=== PATIENT | female | born 1940 | race Native Hawaiian/Other Pacific Islander ===

== ENCOUNTER 2016-11-07 09:36 | Inpatient (IN) | payer MEDICARE, MEDICAID ==
--- NOTE | 2016-11-07 09:54 | C.PDOC ---
History Of Present Illness 76 yr old female brought in via BLS and accompanied by family, presents to the ER stating patient has been worsening AMS and generalized weakness for the past 2 days. Family reports patient has had decrease appetite an di sno longer walking, usually she is able to walk with the help of a walker. Family states the patient was discharged 1 month ago from [facility] for back and leg pain and currently is on pain meds. Also reports of new onset of right facial swelling since morning. Family denies fever. ROS is limited from patient due to clinical conditions. LIMITED DUE TO CLIN COND FX PER FAMILY, POOR HISTORIAN WORSENING AMS, GEN WEAKNESS X 2 DAYS. NO FEVER. DEC APPETITE, NO LONGER WALKING. USUALLY AMBUL W WALKER. FAMILY STATES PT DC 1 MO AGO FROM [facility] FOR BACK AND LEG PAIN. STATES CURRENTLY ONLY ON PAIN MEDS. DENIES CURRENT HTN MED USE. FAMILY STATES NEW ONSET R FACIAL SWELL SINCE THIS MORNING. EXAM MOD DIST MILD TOX HEENT R LOWER SUBMAND/PAROTID AREA SWELL W LOCAL TEND. NO FOCAL FLUCTUANCE; NO SUBMENTAL SWELL. +ANGIOEDEMA UNDERNEATH TONGUE, NORMAL FISSURES TOP OF TONGUE. DIFFUSE POOR DENTITION. MM DRY. NECK SUPPLE NO STRIDOR. UNABLE TO OBSERVE TRACHEA CTA B/L NO W/R/R TACHYPNEA CV RRR SINUS TACH ABD NEG NO EDEMA EXT ATRAUM NEURO SEE [facility]. SKIN POOR TURGOR Time Seen by Provider: 11/07/16 09:44 Chief Complaint (Nursing): Weakness/Neurological Deficit History Per: Family History/Exam Limitations: Clinical Condition Onset/Duration Of Symptoms: Days (2 days worsening AMS and weakness), Sudden Onset (Right facial swelling ) Past Medical History Reviewed: Historical Data, Nursing Documentation, Vital Signs Vital Signs: Last Vital Signs Temp 99.2 F 11/07/16 10:03 Pulse 81 11/07/16 12:38 Resp 20 11/07/16 12:38 BP 211/89 H 11/07/16 12:38 Pulse Ox 100 11/07/16 12:38 - Medical History PMH: Arthritis (OSTEOARTHRITIS), HTN Surgical History: - [facility] COLONOSCOPY (04/17/14) Family History: States: No Known Family Hx - Social History Hx Tobacco Use: No Hx Alcohol Use: No Hx Substance Use: No - Immunization History Hx Tetanus Toxoid Vaccination: No Hx Influenza Vaccination: Yes Hx Pneumococcal Vaccination: Yes Review Of Systems Review Of Systems: ROS cannot be obtained secondary to pt's inabilty to answer questions. Constitutional: Positive for: Weakness (Generalized ). Negative for: Fever Physical Exam - Physical Exam Appears: Toxic (Mild), In Acute Distress (Moderate ) Skin: Warm, Dry, No Rash Head: Normacephalic, Other (Right lower submandibular/parotid area, swelling with local tenderness. No focal fluctuance. No submental swelling. ) Oral Mucosa: Dry Tongue: Swelling (Angioedema underneath tongue. ), Other (Normal fissures top of tongue. ) Teeth: Other (Diffuse poor dentition. ) Neck: Supple Cardiovascular: Rhythm Regular, Other (Sinus tach) Respiratory: Normal Breath Sounds, No Rales, No Rhonchi, No Wheezing Gastrointestinal/Abdominal: Normal Exam, Soft, No Tenderness, No Guarding, No Rebound Extremity: No Tenderness, No Swelling Neurological/Psych: Other (See NIH. ) ED Course And Treatment - Laboratory Results Result Diagrams: 11/07/16 10:06 11/07/16 10:06 ECG: Interpreted By Ar ECG Rhythm: Sinus Tachycardia Rate From EC (BPM) O2 Sat by Pulse Oximetry: 96 (RA ) Pulse Ox Interpretation: Normal - Radiology CXR: Interpreted by Me, Viewed By Ar CXR Interpretation: Yes: No Acute Disease - CT Scan/US CT - Neck Other Rad Studies (CT/US): Read By Radiologist, Radiology Report Reviewed CT/US Interpretation: EXAM: CT Neck With Intravenous Contrast. CLINICAL HISTORY: 76 years old, female; Signs and symptoms; Mass, lump, or swelling in neck; Additional info: Swelling. r lower face, raised tongue RO ? abscess. TECHNIQUE: Axial computed tomography images of the neck with intravenous contrast. This CT exam was. performed using one or more of the following dose reduction techniques: automated exposure. control, adjustment of the mA and/or kV according to patient size, and/or use of iterative. reconstruction technique. CONTRAST: 100 mL of visipaque 320 administered intravenously. COMPARISON: No relevant prior studies available. FINDINGS: Nasopharynx: Unremarkable. Oropharynx: Unremarkable. No significant tonsillar enlargement. No peritonsillar abscess. Hypopharynx: Unremarkable. Larynx: Unremarkable. Normal epiglottis. Trachea: Unremarkable. Retropharyngeal space: Unremarkable. Submandibular/parotid glands: There is asymmetric swelling and induration involving the right. parotid gland consistent with underlying inflammation. Thyroid: Unremarkable. No enlarged or calcified nodules. Bones/ joints: No acute fracture. Vasculature: There are calcified atherosclerotic changes of the aorta. There are calcified. atherosclerotic changes of the cervical carotid arteries. Lymph nodes: Unremarkable. No lymphadenopathy. Sinuses: There are bilateral maxillary sinus air-fluid levels. Orbits: There is evidence of prior eye surgery. Lung apices: Unremarkable as visualized. IMPRESSION: 1. There is asymmetric swelling and induration involving the right parotid gland consistent with. underlying inflammation. There is no fluid or air collection to suggest an abscess. 2. There are bilateral maxillary sinus air-fluid levels. Soft tissues: Unremarkable. CT - Head w/o Contrast Other Rad Studies (CT/US): Read By Radiologist, Radiology Report Reviewed CT/US Interpretation: EXAM: CT Head Without Intravenous Contrast. CLINICAL HISTORY: 76 years old, female; Signs and symptoms; Altered mental status/ memory loss; Confusion or. disorientation; Additional info: AMS. TECHNIQUE: Axial computed tomography images of the head/brain without intravenous contrast. This CT exam. was performed using one or more of the following dose reduction techniques: automated exposure. control, adjustment of the mA and/or kV according to patient size, and/or use of iterative. reconstruction technique. COMPARISON: No relevant prior studies available. FINDINGS: Brain : 6.5 x 4.3 cm hyperattenuation left frontal mass with peripheral calcifications There is mass. effect upon the left lateral ventricle and effacement of the left-sided cerebral sulci 6 mm of midline. shift is seen from [id number] consistent with subfalcine herniation Bilateral basal ganglia calcification. No hemorrhage. Ventricles: Mass effect upon the left lateral ventricle. Bones/joints: Unremarkable. No acute fracture. Soft tissues : Unremarkable. Vasculature: The distal vertebral arteries visualized and cavernous portions of the carotid arteries. show atherosclerotic disease. Sinuses: There is aerosolized mucous with the maxillary sinus bilaterally consistent with an acute. component. Mastoid air cells: Unremarkable as visualized. No mastoid effusion. IMPRESSION: 1. 6.5 x 4.3 cm hyperattenuation left frontal mass with peripheral calcifications. 2. There is mass effect upon the left lateral ventricle and effacement of the left-sided cerebral sulci. 3. 6 mm of midline shift is seen from [id number] consistent with subfalcine herniation. 4. There is aerosolized mucous with the maxillary sinus bilaterally consistent with an acute. component. CT - Head w/ Contrast Other Rad Studies (CT/US): Read By Radiologist, Radiology Report Reviewed CT/US Interpretation: EXAM: CT Head With Intravenous Contrast. CLINICAL HISTORY: 76 years old, female; Condition or disease; Brain tumor; Neoplasm of brain, not specified; Additional. info: Brain mass. TECHNIQUE: Axial computed tomography images of the head/brain with intravenous contrast. This CT exam was. performed using one or more of the following dose reduction techniques: automated exposure. control, adjustment of the mA and/or kV according to patient size, and/or use of iterative. reconstruction technique. CONTRAST: 100 mL of visipaque 320 administered intravenously. COMPARISON: CT - HEAD W/O CONTRAST 11/07/2016 10:38:54 AM. FINDINGS: Brain: 6.5 x 4.3 cm hyperattenuation left frontal mass with peripheral calcifications There is mass. effect upon the left lateral ventricle and effacement of the left-sided cerebral sulci 6 mm of midline. shift is seen from [id number] consistent with subfalcine herniation Bilateral basal ganglia calcification. No hemorrhage. Slight enhancement of the left frontal mass No edema. Ventricles: Mass effect upon the left lateral ventricle. Bones/joints: Unremarkable. No acute fracture. Soft tissues: Asymmetric enlargement of the right parotid gland. Vasculature: The distal vertebral arteries visualized and cavernous portions of the carotid arteries. show atherosclerotic disease. Sinuses: There is aerosolized mucous with the maxillary sinus bilaterally consistent with an acute. component. Mastoid air cells: Unremarkable as visualized. No mastoid effusion. IMPRESSION: 1. 6.5 x 4.3 cm hyperattenuation left frontal mass with peripheral calcifications and slight. enhancement. 2. There is mass effect upon the left lateral ventricle and effacement of the left-sided cerebral sulci. 3. 6 mm of midline shift is seen from [id number] consistent with subfalcine herniation. 4. No additional intracranial mass lesions Progress - Re-Evaluation Re-evaluation Note: 11/07/16 11:[address] D/W DR WHITT: +50% AIRWAY NARROWING BASE OF TONGUE. NO OTHER VISIBLE AIRWAY COMPROMISE VSS ON NRB. 11/07/16 11:39 D/W DR GARRETT AWARE OF ER FINDINGS REQUESTS REPEAT ABG, WILL EVAL IN ER 11/07/16 11:44 D/W DR Naomi DONIS C/F PMD WILL ADMIT 11/07/16 12:38 SP ICU EVAL, ACCEPTED. - Data Reviewed Data Reviewed: Lab, Diagnostic imaging, EKG, Old records - Critical Care Citical Care: Excluding Proc Time Critical Care Time: 120 minutes - Continuity of Care Discussed patient case with:: Patient, Family-HIPPA compliant Discussed pt. case with bridal sales consultant/specialty: Pulmonary/Crit. Care Medical Decision Making Medical Decision Making: PLAN: * CT - Head, Neck * CT - Head w/ Contrast * CXR * EKG * ABG * Troponin * CBC * CMP * Urinalysis * Trandate IV * Vancomycin IV * Sodium Chloride IV Disposition Counseled Patient/Family Regarding: Studies Performed, Diagnosis - Disposition Disposition: HOSPITALIZED Disposition Time: 12:39 Condition: SERIOUS Forms: [facility] (Azeri) - POA Present On Arrival: None - Clinical Impression Clinical Impression: Parotiditis, Altered mental status, Respiratory distress Decision To Admit - Pt Status Changed To: Hospital Disposition Of: Inpatient - Admit Certification Admit to Inpatient:: After my assessment, the patient will require hospitalization for at least two midnights. This is because of the severity of symptoms shown, intensity of services needed, and/or the medical risk in this patient being treated as an outpatient. - InPatient: Physician Admission Certification:: see note - . Bed Request Type: ICU Admitting Physician: Gab Donis Patient Diagnosis: Parotiditis, Altered mental status, Respiratory distress
[2016-11-07] MEDS ORDERED: Sodium Chloride 0.9% 500 ML IV ONE (10:04)
[2016-11-07] MEDS ORDERED: Iodixanol 320 MG/ML 100 ML BOTTLE IV ONE (10:09)
[2016-11-07 10:12] LABS: BASO # 0.1 K/uL (0.0-0.2); BASO % 0.4 % (0.0-2.0); HEMATOCRIT 37.6 % (34.0-47.0); LYMPH # 1.3 K/uL (1.0-4.3); LYMPH % 6.6 % (20.0-40.0); MEAN CORPUSCULAR HEMOGLOBIN 18.1 pg (27.0-31.0); MEAN CORPUSCULAR HGB CONC 29.5 g/dL (33.0-37.0); MEAN PLATELET VOLUME 9.1 fL (7.2-11.7); MONO # 0.7 K/uL (0.0-0.8); MONO % 3.5 % (0.0-10.0); PLATELET COUNT 415 K/uL (130-400); RED CELL DISTRIBUTION WIDTH 21.8 % (11.5-14.5)
[2016-11-07 10:15] LABS: CHLORIDE 103 mmol/L (98-107)
[2016-11-07 10:16] LABS: POTASSIUM 4.5 mmol/L (3.6-5.2); SODIUM 145 mmol/L (132-148)
[2016-11-07 10:18] LABS: ALB/GLOB RATIO 0.9 (1.0-2.1); ALKALINE PHOSPHATASE 125 U/L (38-126); AST/SGOT 25 U/L (14-36); BILIRUBIN,TOTAL 0.9 mg/dL (0.2-1.3); BLOOD UREA NITROGEN 24 mg/dL (7-17); CARBON DIOXIDE 23 mmol/L (22-30); GFR AFRICAN-AMERICAN > 60; RBC URINE 1 /hpf (0-3); TOTAL PROTEIN 6.8 g/dL (6.3-8.3); URINE BILIRUBIN 1+ (NEGATIVE); URINE BLOOD 1+ (NEGATIVE); URINE COLOR Amber (YELLOW); URINE GLUCOSE (UA) NORMAL (Normal); URINE KETONE 2+ mg/dL (NEGATIVE); URINE LEUKOCYTE ESTERASE NEG Leu/uL (Negative); URINE PROTEIN 2+ mg/dL (NEGATIVE); WBC URINE 2 /hpf (0-5)
[2016-11-07 10:19] LABS: ALT/SGPT 31 U/L (9-52); CALCIUM 10.5 mg/dl (8.6-10.4); GLUCOSE,RANDOM 140 mg/dL (65-105)
[2016-11-07 10:20] LABS: INR 1.3
[2016-11-07 10:23] LABS: MEAN CELL VOLUME 61.4 fL (81.0-99.0); WHITE BLOOD COUNT 19.8 K/uL (4.8-10.8)
[2016-11-07 10:24] LABS: ABG ALLEN TEST POS; DRAW SITE LRA
--- NOTE | 2016-11-07 10:43 | RAD ---
PROCEDURE: CHEST RADIOGRAPH, 1 VIEW HISTORY: Altered mental status COMPARISON: None available. FINDINGS: LUNGS: Diffuse increased interstitial lung markings. Biapical pleural thickening with upper lobe granulomatous changes. Right hilar prominence. Patchy increased markings at the left lung base with question trace left pleural effusion. PLEURA: As above. CARDIOVASCULAR: Calcification at the aortic knob. Tortuous aorta. OSSEOUS STRUCTURES: Degenerative changes in the spine and shoulders. VISUALIZED UPPER ABDOMEN: Normal. OTHER FINDINGS: None. IMPRESSION: Diffuse increased interstitial lung markings. Biapical pleural thickening with upper lobe granulomatous changes. Right hilar prominence. Patchy increased markings at the left lung base with question trace left pleural effusion.
[2016-11-07 11:00] LABS: NEUTROPHIL 93 % (50-75); TOTAL CELLS COUNTED 100
[2016-11-07] MEDS ORDERED: Labetalol 25mg/5ml Syringe ONE (11:05)
[2016-11-07] MEDS ORDERED: Labetalol 5 mg/ml Inj 20ML IV STA (11:08)
[2016-11-07] MEDS ORDERED: Vancomycin 1 GM 0 GM/0 ML BAG IVPB ONE (11:21)
[2016-11-07] MEDS ORDERED: Vancomycin 1 gm/NS 200 ml 1 GM/200 ML BAG IVPB STA (11:23)
[2016-11-07 12:08] LABS: ABG ALLEN TEST POS; DRAW SITE RRA
[2016-11-07 13:20] LABS: VENOUS BLOOD GAS BASE EXCESS -5.5 mmol/L (0.0-2.0); VENOUS BLOOD GAS PCO2 42 mmHg (40-60)
--- NOTE | 2016-11-07 15:35 | CP.PCM.CON ---
History of Present Illness - History of Present Illness History of Present Illness: 73yo PMHx HTN, arthritis, constipation, UTI's, internal hemorrhoids, right and left ovarian cystic masses (Ovarian CA workup not complete). p/w parotitis with airway compromise. Review of Systems - Review of Systems Systems not reviewed;Unavailable: Altered Mental Status, Language Barrier Past Patient History - Infectious Disease Hx of Infectious Diseases: None - Tetanus Immunizations Tetanus Immunization: Unknown - Past Medical History & Family History Past Medical History?: Yes - Past Social History Smoking Status: Never Smoked - CARDIAC Hx Hypertension: Yes - PULMONARY Hx Respiratory Disorders: No - NEUROLOGICAL Hx Neurological Disorder: No - HEENT Hx HEENT Problems: No - RENAL Hx Chronic Kidney Disease: No - ENDOCRINE/METABOLIC Hx Endocrine Disorders: No - HEMATOLOGICAL/ONCOLOGICAL Hx Blood Disorders: No - INTEGUMENTARY Hx Dermatological Problems: No - MUSCULOSKELETAL/RHEUMATOLOGICAL Hx Arthritis: Yes (OSTEOARTHRITIS) - GASTROINTESTINAL Hx Gastrointestinal Disorders: No - GENITOURINARY/GYNECOLOGICAL Hx Genitourinary Disorders: No - PSYCHIATRIC Hx Substance Use: No - SURGICAL HISTORY Hx Surgeries: Yes Hx Cataract Extraction: Yes Hx Tubal Ligation: Yes - ANESTHESIA Hx Anesthesia: Yes Hx Anesthesia Reactions: No Hx Malignant Hyperthermia: No Meds Allergies/Adverse Reactions: Allergies Allergy/AdvReac Type Severity Reaction Status Date / Time No Known Allergies Allergy Verified 04/17/14 17:38 Physical Exam - Head Exam Head Exam: ATRAUMATIC, NORMAL INSPECTION, NORMOCEPHALIC - ENT Exam ENT Exam: Mucous Membranes Dry Additional comments: horrible dentition - Respiratory Exam Respiratory Exam: Clear to Auscultation Bilateral, NORMAL BREATHING PATTERN - Cardiovascular Exam Cardiovascular Exam: REGULAR RHYTHM - GI/Abdominal Exam GI & Abdominal Exam: Normal Bowel Sounds, Soft. absent: Tenderness - Neurological Exam Neurological exam: Alert, CN II-XII Intact - Psychiatric Exam Psychiatric exam: Normal Mood Results - Vital Signs Recent Vital Signs: Last Vital Signs Temp 98.9 F 11/07/16 12:53 Pulse 78 11/07/16 14:50 Resp 19 11/07/16 14:50 BP 189/90 H 11/07/16 14:50 Pulse Ox 100 11/07/16 14:50 - Labs Result Diagrams: 11/07/16 10:06 11/07/16 10:06 Labs: Laboratory Results - last 24 hr 11/07/16 13:15 pO2 27 L VBG pH 7.30 L VBG pCO2 42 VBG HCO3 19.1 VBG Total CO2 22.0 VBG O2 Sat (Calc) 51.1 VBG Base Excess -5.5 L VBG Potassium 3.6 Sodium 145.0 Chloride 117.0 H Glucose 115 H Lactate 1.6 Venous Blood Potassium 3.6 Assessment & Plan (1) Parotiditis Assessment and Plan: 73yo PMHx HTN, arthritis, constipation, UTI's, internal hemorrhoids, right and left ovarian cystic masses (Ovarian CA workup not complete). p/w parotitis with airway compromise. Neuro: Alert, follows commands, language barrier. Pulm: Breathing with audible airway collapse sound secondary to swelling from parotiditis, not labored, oxygenating well with nasal cannula oxygen. We will monitor for any degradation and airway patency. CV: Hemodynamically stable. Hypertensive IV enalapril 2.5 mg IV every 6 hours. Hem: Leukocytosis from sepsis Renal: No acute issues, urine output within normal limits, will monitor. Endo: No acute issues GI: Nothing by mouth, tube feeding, Jevity. ID: Sepsis secondary to parotitis, continue nafcillin and clindamycin. DVT proph - Lovenox GI proph - not currently indicated hyman for strict I/O's during acute illness Code status - full code Critical Care Time spent 35 minutes Multi-disciplinary rounds were performed with house staff, nursing, speech therapy, respiratory therapy, pharmacy and nutrition with integrated input from the primary team/attending and other consulting services. The documented time is cumulative and includes review of patient data/exams/labs/chart review and examination of the patient on rounds and throughout the day; time is exclusive of any procedures or teaching time. Status: Acute
[2016-11-07] MEDS ORDERED: Enalaprilat 2.5 MG/2 ML IV SCH (16:00)
[2016-11-07] MEDS ORDERED: Enoxaparin 40 mg Syringe SC SCH (16:00)
[2016-11-07] MEDS: Sodium Chloride 0.9% 1,000 ML IV SCH (16:10)
--- NOTE | 2016-11-07 16:43 | CT ---
PROCEDURE: CT HEAD WITHOUT CONTRAST. HISTORY: Altered mental status COMPARISON: None available. TECHNIQUE: Axial computed tomography images were obtained through the head/brain without intravenous contrast. Radiation dose: Total exam DLP = 1001 mGy-cm. This CT exam was performed using one or more of the following dose reduction techniques: Automated exposure control, adjustment of the mA and/or kV according to patient size, and/or use of iterative reconstruction technique. FINDINGS: HEMORRHAGE: See below BRAIN: 6.5 x 4.3 centimeter hyperattenuated left frontal mass with peripheral calcification. Mass effect upon the left lateral ventricle with effacement of the left-sided cerebral sulci. 6 millimeter of midline shift is seen from [id number] consistent with subfalcine herniation. Bilateral basal ganglia calcification. VENTRICLES: Mass effect upon the left lateral ventricle as described above. CALVARIUM: Unremarkable. PARANASAL SINUSES: Mucosal secretions within the bilateral maxillary sinuses. MASTOID AIR CELLS: Unremarkable as visualized. No inflammatory changes. OTHER FINDINGS: Atherosclerotic disease within the visualized intracranial arteries. Left orbital prosthesis and or ring light area of increased attenuation. IMPRESSION: 6.5 x 4.3 centimeter hyperattenuated left frontal mass with peripheral calcifications. Correlation with MRI may be helpful for further characterization of this lesion. Mass effect upon the left lateral ventricle with effacement of the left-sided cerebral sulci. 6 millimeter midline shift is seen from [id number] consistent with subfalcine herniation. Mucosal secretions within the maxillary sinuses bilaterally consistent with an acute component. These findings were preliminarily reported at 11:15 a.m. on 11/07/[address] Mihir Mendieta from [email or web address].
--- NOTE | 2016-11-07 16:55 | CT ---
CT soft tissue neck History: Right facial soft tissue swelling. Comparison: None available. Technique: Axial computed tomographic images of the neck were performed with intravenous contrast. Subsequently, sagittal and coronal reformatted images were obtained. This CT exam was performed using one or more of the following dose reduction techniques: Automated exposure control, adjustment of the mA and/or kV according to patient size, and/or use of iterative reconstruction technique. Findings: Asymmetric swelling and induration involving the right parotid gland consistent with underlying inflammation. Calcification with atherosclerotic changes of the visualized aorta and cervical carotid arteries. Bilateral maxillary sinuses demonstrate air-fluid levels. Evidence of prior left eye surgery. Left parotid gland appears preserved. Left submandibular gland appears preserved. Mild asymmetric prominence of the left tonsillar/peritonsillar region with some narrowing of the airway at that level and extending inferiorly as demonstrated on series 2, image 26. Mild thickening at the level of the tongue base. Few shotty cervical chain lymph nodes noted. Mucosal thickening and opacification of the bilateral maxillary sinuses. Partial opacification of the bilateral mastoid air cells; left greater than right. Prominent degenerative changes in the spine. Prominent posterior disc osteophyte complex at the C5-6 level. Heterogeneity of the thyroid. Calcification and plaque within the aorta. Impression: 1. Asymmetric swelling and induration involving the right parotid gland consist with underlying inflammation and/or infection. 2. Bilateral maxillary sinus air-fluid levels. 3. Mild asymmetric prominence of the left tonsillar/peritonsillar region with some narrowing of the airway at that level and extending inferiorly as demonstrated on series 2, image 26. 4. Mild thickening at the level of the tongue base. 5. Few shotty cervical chain lymph nodes noted. 6. Partial opacification of the bilateral mastoid air cells; left greater than right. Additional findings as above. These findings were preliminarily reported at 11:09 a.m. on 11/07/[address] Alireza Zapata from [employer].
--- NOTE | 2016-11-07 17:08 | CT ---
PROCEDURE: CT HEAD WITH CONTRAST HISTORY: BRAIN MASS COMPARISON: Noncontrast CT head dated 11/08/2015 TECHNIQUE: Axial computed tomography images were obtained through the head/brain with intravenous contrast. Contrast dose: 100 cc of Visipaque 320 intravenous contrast. Radiation dose: Total exam DLP = 981 mGy-cm. This CT exam was performed using one or more of the following dose reduction techniques: Automated exposure control, adjustment of the mA and/or kV according to patient size, and/or use of iterative reconstruction technique. FINDINGS: HEMORRHAGE: See below. BRAIN: 6.5 x 4.3 centimeter hyperattenuated left frontal mass with peripheral calcifications. Mass-effect upon the left lateral ventricle and effacement of the left-sided cerebral sulci. 6 millimeter midline shift is seen from [id number] consistent with subfalcine herniation. Bilateral basal ganglia calcification. Slight enhancement of the left frontal mass. VENTRICLES: Mass effect upon the left lateral ventricle. CALVARIUM: Unremarkable. PARANASAL SINUSES: Mucosal thickening and opacification of the bilateral maxillary sinuses. MASTOID AIR CELLS: Mucosal opacification of the bilateral mastoid air cells. OTHER FINDINGS: Asymmetric enlargement of the right parotid gland. Intracranial atherosclerotic arterial calcifications. IMPRESSION: 6.5 x 4.3 centimeter hyperattenuated left frontal mass with peripheral calcification and slight enhancement. Correlation with contrast-enhanced MRI would be helpful for further evaluation and characterization of this lesion. Mass-effect upon the left lateral ventricle and effacement of the left-sided cerebral sulci. 6 millimeter of midline shift seen from [id number] consistent with subfalcine herniation. Additional findings as above. These findings were preliminarily reported at 12:19 p.m. on 11/07/[address] Mihir Mendieta from [facility].
--- NOTE | 2016-11-07 22:14 | CP.PCM.HP ---
History of Present Illness - History of Present Illness History of Present Illness: 76 yo F with PMH of HTN, Arthritis and recent d/c last month from [facility] for back and leg pain BIBA to ED with 2 day h/o worsening mental status a/w generalized weakness. Pt family at bedside and ROS and hx as per pt family due to pt clinical condition. As per pt family, pt noted to have Right sided facial swelling and tenderness. Denies fever, chills, chest pain, sob, n/v/d, abdominal pain. Pt reported to have decrease in appetite with decreased mobility to not walking status. At baseline pt is able to ambulate with walker. Denies use of current antihypertensive. Left sided brain mass noted on Head CT Present on Admission - Present on Admission Any Indicators Present on Admission: No Review of Systems - Review of Systems Systems not reviewed;Unavailable: Altered Mental Status Past Patient History - Infectious Disease Hx of Infectious Diseases: None - Tetanus Immunizations Tetanus Immunization: Unknown - Past Medical History & Family History Past Medical History?: No - Past Social History Smoking Status: Unknown If Ever Smoked - CARDIAC Hx Hypertension: Yes - PULMONARY Hx Respiratory Disorders: No - NEUROLOGICAL Hx Neurological Disorder: No - HEENT Hx HEENT Problems: No - RENAL Hx Chronic Kidney Disease: No - ENDOCRINE/METABOLIC Hx Endocrine Disorders: No - HEMATOLOGICAL/ONCOLOGICAL Hx Blood Disorders: No - INTEGUMENTARY Hx Dermatological Problems: No - MUSCULOSKELETAL/RHEUMATOLOGICAL Hx Falls: No (Unknown) - GASTROINTESTINAL Hx Gastrointestinal Disorders: No - GENITOURINARY/GYNECOLOGICAL Hx Genitourinary Disorders: No - PSYCHIATRIC Hx Substance Use: No - SURGICAL HISTORY Hx Surgeries: Yes Hx Cataract Extraction: Yes Hx Tubal Ligation: Yes - ANESTHESIA Hx Anesthesia: Yes Hx Anesthesia Reactions: No Hx Malignant Hyperthermia: No Meds Allergies/Adverse Reactions: Allergies Allergy/AdvReac Type Severity Reaction Status Date / Time No Known Allergies Allergy Verified 04/17/14 17:38 Physical Exam - Constitutional Appears: Well - Head Exam Head Exam: ATRAUMATIC, NORMAL INSPECTION, NORMOCEPHALIC - Eye Exam Eye Exam: EOMI, Normal appearance, PERRL - ENT Exam ENT Exam: Mucous Membranes Moist, Normal Exam - Neck Exam Neck exam: Positive for: Normal Inspection - Respiratory Exam Respiratory Exam: Decreased Breath Sounds - Cardiovascular Exam Cardiovascular Exam: REGULAR RHYTHM - GI/Abdominal Exam GI & Abdominal Exam: Diminished Bowel Sounds - Rectal Exam Rectal Exam: Deferred - Neurological Exam Neurological exam: Altered Results - Vital Signs Recent Vital Signs: Last Vital Signs Temp 97.4 F L 11/07/16 20:00 Pulse 76 11/07/16 22:13 Resp 18 11/07/16 22:13 BP 204/82 H 11/07/16 22:13 Pulse Ox 100 11/07/16 22:13 - Labs Result Diagrams: 11/15/16 11:17 11/15/16 11:17 Labs: Laboratory Results - last 24 hr 11/07/16 13:15 pO2 27 L VBG pH 7.30 L VBG pCO2 42 VBG HCO3 19.1 VBG Total CO2 22.0 VBG O2 Sat (Calc) 51.1 VBG Base Excess -5.5 L VBG Potassium 3.6 Sodium 145.0 Chloride 117.0 H Glucose 115 H Lactate 1.6 Venous Blood Potassium 3.6 Assessment & Plan (1) Altered mental status Status: Acute (2) Parotiditis Status: Acute (3) Respiratory distress Status: Acute (4) Abdominal pain Status: Acute (5) Anemia Status: Acute (6) Constipation Status: Acute (7) Hyperglycemia Status: Acute (8) Hypokalemia Status: Acute (9) Ovarian cystic mass Status: Acute (10) Prophylactic measure Status: Acute (11) UTI (urinary tract infection) Status: Acute - Assessment and Plan (Free Text) Plan: neurosurg heme/onc id pulm f/u labs CT head reviewed CT neck iv abx maría meds as ordered BCx UCx
[2016-11-07] MEDS ORDERED: Enalaprilat 2.5 MG/2 ML IV STA (22:18)
[2016-11-08] MEDS: Enalaprilat 2.5 MG/2 ML IV SCH ×3 (06:13→17:34)
[2016-11-08] MEDS: Sodium Chloride 0.9% 1,000 ML IV SCH (06:18)
[2016-11-08 06:23] LABS: BASO # 0.1 K/uL (0.0-0.2); BASO % 0.5 % (0.0-2.0); EOS % 0.1 % (0.0-4.0); HEMATOCRIT 31.8 % (34.0-47.0); LYMPH # 0.9 K/uL (1.0-4.3); LYMPH % 4.6 % (20.0-40.0); MEAN CELL VOLUME 61.5 fL (81.0-99.0); MEAN CORPUSCULAR HEMOGLOBIN 18.1 pg (27.0-31.0); MEAN CORPUSCULAR HGB CONC 29.4 g/dL (33.0-37.0); MEAN PLATELET VOLUME 9.4 fL (7.2-11.7); MONO % 4.7 % (0.0-10.0); PLATELET COUNT 371 K/uL (130-400); RED CELL DISTRIBUTION WIDTH 21.5 % (11.5-14.5); WHITE BLOOD COUNT 20.4 K/uL (4.8-10.8)
[2016-11-08 07:11] LABS: ALB/GLOB RATIO 0.8 (1.0-2.1); ALKALINE PHOSPHATASE 103 U/L (38-126); ALT/SGPT 28 U/L (9-52); AST/SGOT 37 U/L (14-36); BILIRUBIN,TOTAL 0.7 mg/dL (0.2-1.3); BLOOD UREA NITROGEN 19 mg/dL (7-17); CALCIUM 8.9 mg/dl (8.6-10.4); CARBON DIOXIDE 23 mmol/L (22-30); CHLORIDE 110 mmol/L (98-107); GFR AFRICAN-AMERICAN > 60; GLUCOSE,RANDOM 160 mg/dL (65-105); MAGNESIUM 1.9 mg/dL (1.6-2.3); PHOSPHOROUS 2.1 mg/dL (2.5-4.5); POTASSIUM 3.3 mmol/L (3.6-5.2); SODIUM 145 mmol/L (132-148); TOTAL PROTEIN 5.6 g/dL (6.3-8.3)
[2016-11-08 08:56] LABS: NEUTROPHIL 90 % (50-75); TOTAL CELLS COUNTED 100
[2016-11-08 09:01] LABS: LARGE PLATELETS PRESENT
[2016-11-08] MEDS ORDERED: Iohexol 240 (50 ml) PO ONE (11:15)
[2016-11-08] MEDS ORDERED: Potassium Chloride 20 mEq/15 ml LIQ UD PO ONE (11:18)
[2016-11-08] MEDS ORDERED: Potassium & Sodium Phosphate PO ONE (11:19)
--- NOTE | 2016-11-08 11:27 | CP.CCUPN ---
<Sheree Cespedes - Last Filed: 11/08/16 13:31> CCU Subjective - Physician Review Subjective (Free Text): Patient was seen and examined at bedside in the morning. Patient was in no acute distress. Patient followed commands but did not respond to review of systems. 11/08/16 11:27 CCU Objective - Vital Signs / Intake & Output Vital Signs (Last 4 hours): Vital Signs Temp Pulse Resp BP Pulse Ox 11/08/16 09:00 79 15 100 11/08/16 08:56 78 16 154/67 H 100 11/08/16 08:00 98 F 78 14 100 11/08/16 07:56 78 17 146/72 100 Intake and Output (Last 8hrs): Intake & Output 11/07/16 11/08/16 11/08/16 22:59 06:59 14:59 Intake Total 340 910 285 Output Total 140 325 225 Balance 200 585 60 Intake: Intake, IV Amount 300 750 225 Left Forearm 300 700 225 left arm 50 Tube Feeding 40 160 60 Output: Urine 140 325 225 Urethral (Snow) 140 325 225 Other: # Bowel Movements 0 0 - Physical Exam Head: Positive for: Atraumatic, Tenderness (right parotiditis), Swelling (right parotiditis). Negative for: Normocephalic Extroacular Muscles: Positive for: EOMI Mouth: Positive for: Moist Mucous Membranes Neck: Positive for: Other (tenderness and swelling with palpation of right neck extending from angle of mandible to clavicle) Respiratory/Chest: Positive for: Clear to Auscultation. Negative for: Wheezes, Rales Cardiovascular: Positive for: Normal S1, S2 Abdomen: Positive for: Normal Bowel Sounds. Negative for: Tenderness, Distention Upper Extremity: Positive for: Normal Inspection, Other (right sided weakness) Lower Extremity: Positive for: Edema, Swelling. Negative for: Normal Inspection , NORMAL PULSES (diminished) Skin: Positive for: Warm, Dry, Normal Color Psychiatric: Positive for: Alert - Medications Active Medications: Active Medications Generic Name Dose Route Start Last Admin Trade Name Freq PRN Reason Stop Dose Admin Enalaprilat 1.25 mg 11/08/16 06:00 11/08/16 06:13 Vasotec IV 1.25 mg Q6 SUJEY Administration Famotidine 20 mg 11/08/16 10:30 11/08/16 11:00 Pepcid IVP 20 mg DAILY SUJEY Administration Hydralazine HCl 10 mg 11/08/16 00:45 11/08/16 06:11 Apresoline IVP Not Given Q6H SUJEY Clindamycin Phosphate 600 mg/ 54 mls @ 100 mls/hr 11/07/16 17:00 11/08/16 10: 08 Sodium Chloride IVPB 100 mls/hr Q6H SUJEY Administration Ceftriaxone Sodium 1 gm/ 100 mls @ 100 mls/hr 11/08/16 10:00 11/08/16 10:06 Sodium Chloride IVPB 100 mls/hr DAILY SUJEY Administration - Patient Studies Lab Studies: Lab Studies 11/08/16 11/08/16 11/07/16 Range/Units 06:16 06:15 13:15 WBC 20.4 H (4.8-10.8) K/uL RBC 5.17 (3.80-5.20) Mil/uL Hgb 9.4 L (11.0-16.0) g/dL Hct 31.8 L (34.0-47.0) % MCV 61.5 L (81.0-99.0) fL MCH 18.1 L (27.0-31.0) pg MCHC 29.4 L (33.0-37.0) g/dL RDW 21.5 H (11.5-14.5) % Plt Count 371 (130-400) K/uL MPV 9.4 (7.2-11.7) fL Neut % (Auto) 90.1 H (50.0-75.0) % Lymph % (Auto) 4.6 L (20.0-40.0) % [place] % (Auto) 4.7 (0.0-10.0) % Eos % (Auto) 0.1 (0.0-4.0) % Baso % (Auto) 0.5 (0.0-2.0) % Neut # 18.4 H (1.8-7.0) K/uL Lymph # 0.9 L (1.0-4.3) K/uL [place] # 1.0 H (0.0-0.8) K/uL Eos # 0.0 (0.0-0.7) K/uL Baso # 0.1 (0.0-0.2) K/uL Neutrophils % (Manual) 90 H (50-75) % Lymphocytes % (Manual) 6 L (20-40) % Monocytes % (Manual) 4 (0-10) % Toxic Granulation Present Platelet Estimate Normal (NORMAL) Large Platelets Present Hypochromasia (manual) Slight Poikilocytosis (manual Slight Anisocytosis (manual) Slight Microcytosis (manual) Slight Macrocytosis (manual) Slight Ovalocytes Slight [place] Cells Slight pO2 27 L (30-55) mm/Hg VBG pH 7.30 L (7.32-7.43) VBG pCO2 42 (40-60) mmHg VBG HCO3 19.1 mmol/L VBG Total CO2 22.0 (22-28) mmol/L VBG O2 Sat (Calc) 51.1 (40-65) % VBG Base Excess -5.5 L (0.0-2.0) mmol/L VBG Potassium 3.6 (3.6-5.2) mmol/L Sodium 145 145.0 (132-148) mmol/l Chloride 110 H 117.0 H (98-107) mmol/L Glucose 115 H (65-105) mg/dl Lactate 1.6 (0.7-2.1) mmol/L Potassium 3.3 L (3.6-5.2) mmol/L Carbon Dioxide 23 (22-30) mmol/L Anion Gap 15 (10-20) BUN 19 H (7-17) mg/dL Creatinine 0.6 L (0.7-1.2) MG/DL Est GFR ( Amer) > 60 Est GFR (Non-Af Amer) > 60 Random Glucose 160 H (65-105) mg/dL Calcium 8.9 (8.6-10.4) mg/dl Phosphorus 2.1 L (2.5-4.5) mg/dL Magnesium 1.9 (1.6-2.3) mg/dL Total Bilirubin 0.7 (0.2-1.3) mg/dL AST 37 H D (14-36) U/L ALT 28 (9-52) U/L Alkaline Phosphatase 103 (38-126) U/L Total Protein 5.6 L (6.3-8.3) g/dL Albumin 2.5 L D (3.5-5.0) g/dL Globulin 3.0 (2.2-3.9) gm/dL Albumin/Globulin Ratio 0.8 L (1.0-2.1) Venous Blood Potassium 3.6 (3.6-5.2) mmol/L Laboratory Results - last 24 hr 11/07/16 11/08/16 11/08/16 13:15 06:15 06:16 WBC 20.4 H RBC 5.17 Hgb 9.4 L Hct 31.8 L MCV 61.5 L MCH 18.1 L MCHC 29.4 L RDW 21.5 H Plt Count 371 MPV 9.4 Neut % (Auto) 90.1 H Lymph % (Auto) 4.6 L [place] % (Auto) 4.7 Eos % (Auto) 0.1 Baso % (Auto) 0.5 Neut # 18.4 H Lymph # 0.9 L [place] # 1.0 H Eos # 0.0 Baso # 0.1 Neutrophils % (Manual) 90 H Lymphocytes % (Manual) 6 L Monocytes % (Manual) 4 Toxic Granulation Present Platelet Estimate Normal Large Platelets Present Hypochromasia (manual) Slight Poikilocytosis (manual Slight Anisocytosis (manual) Slight Microcytosis (manual) Slight Macrocytosis (manual) Slight Ovalocytes Slight [place] Cells Slight pO2 27 L VBG pH 7.30 L VBG pCO2 42 VBG HCO3 19.1 VBG Total CO2 22.0 VBG O2 Sat (Calc) 51.1 VBG Base Excess -5.5 L VBG Potassium 3.6 Sodium 145.0 145 Chloride 117.0 H 110 H Glucose 115 H Lactate 1.6 Potassium 3.3 L Carbon Dioxide 23 Anion Gap 15 BUN 19 H Creatinine 0.6 L Est GFR ( Amer) > 60 Est GFR (Non-Af Amer) > 60 Random Glucose 160 H Calcium 8.9 Phosphorus 2.1 L Magnesium 1.9 Total Bilirubin 0.7 AST 37 H D ALT 28 Alkaline Phosphatase 103 Total Protein 5.6 L Albumin 2.5 L D Globulin 3.0 Albumin/Globulin Ratio 0.8 L Venous Blood Potassium 3.6 Fingerstick Blood Sugar Results: 161 Review of Systems - Review of Systems Systems not reviewed;Unavailable: Altered Mental Status Assessment/Plan - Assessment and Plan (Free Text) Assessment: 73yo PMHx HTN, arthritis, constipation, UTI's, internal hemorrhoids, right and left ovarian cystic masses (Ovarian CA workup not complete). p/w parotitis with airway compromise. Neuro: - Alert, follows commands, language barrier. - Left Brain Mass - Neurosurgery consulted: Dr. Gautam, help appreciated - Head CT: 6.5 X 4.3 cm hyperattenuated left frontal mass with peripheral calcification and slight enhancement. mass effect upon left lateral ventricle and effacement of left sided cerebral sulci. 6mm midline shift from left to right consistent with subfalcine herniation. - Neurosurgery consulted: Dr. Gautam, help appreciated - Brain MRI w/contrast: f/u - Brain MRI w/o contrast: f/u Pulm: Breathing with audible airway collapse sound secondary to swelling from parotiditis, not labored, oxygenating well with nasal cannula oxygen. We will monitor for any degradation and airway patency. - CXR: diffuse increased interstitial lung marking, biapical pleural thickening with upper lobe granulomatous changes; right hilar prominence. patchy increased markings at left lung base with possible trace pleural effusion. HEENT: - Parotiditis - ENT consulted: Dr. Simeon, help appreciated - Soft tissue Neck CT: asymmetric swelling, induration involving right parotid gland, underlying inflammation and/or infection; mild asymmetric prominence of left tonsillar/peritonsillar region with narrowing of airway at that level and extending inferiorly; mild thickening at level of tongue base; shotty cervical chain lymph nodes. - Swallow eval: f/u CV: Hemodynamically stable. - Hypertensive - IV fluids discontinued - Enalapril 2.5 mg IV Q6 hours. Hem: Leukocytosis from sepsis Renal: No acute issues, urine output within normal limits, will monitor. - Hypokalemia and Hypophosphatemia: KCl and Neutraphos given Endo: No acute issues GI: Nothing by mouth, - Tube feeding: Jevity. ID: Sepsis secondary to parotiditis, - Continue Nafcillin and Clindamycin. - ID consulted: Dr. Rubi, help appreciated. Prophylaxis: - DVT- Lovenox - GI- not currently indicated - Snow for strict I/O's during acute illness - Swallow Eval: f/u Code status - full code <Mingo Posey - Last Filed: 11/08/16 18:58> CCU Objective - Vital Signs / Intake & Output Vital Signs (Last 4 hours): Vital Signs Temp Pulse Resp BP Pulse Ox 11/08/16 18:00 83 15 100 11/08/16 17:57 81 15 122/60 100 11/08/16 17:34 149/85 11/08/16 17:00 99 H 20 100 11/08/16 16:56 92 H 14 149/85 11/08/16 16:00 98.1 F 86 15 100 11/08/16 15:56 86 13 137/65 100 11/08/16 15:00 86 14 100 Intake and Output (Last 8hrs): Intake & Output 11/08/16 11/08/16 11/08/16 06:59 14:59 22:59 Intake Total 910 1365 270 Output Total 325 440 225 Balance 585 925 45 Intake: Intake, IV Amount 750 375 150 Left Forearm 700 325 150 Right Antecubital 0 left arm 50 50 Tube Feeding 160 190 120 Other 800 Output: Urine 325 440 225 Urethral (Snow) 325 440 225 Other: # Bowel Movements 0 0 - Medications Active Medications: Active Medications Generic Name Dose Route Start Last Admin Trade Name Freq PRN Reason Stop Dose Admin Enalaprilat 1.25 mg 11/08/16 06:00 11/08/16 17:34 Vasotec IV 1.25 mg Q6 SUJEY Administration Famotidine 20 mg 11/08/16 10:30 11/08/16 11:00 Pepcid IVP 20 mg DAILY SUJEY Administration Hydralazine HCl 10 mg 11/08/16 00:45 11/08/16 18:29 Apresoline IVP Not Given Q6H SUJEY Clindamycin Phosphate 600 mg/ 54 mls @ 100 mls/hr 11/07/16 17:00 11/08/16 16: 52 Sodium Chloride IVPB 100 mls/hr Q6H SUJEY Administration Ceftriaxone Sodium 2 gm/ 100 mls @ 100 mls/hr 11/08/16 18:00 11/08/16 17:32 Sodium Chloride IVPB 100 mls/hr BID SUJEY Administration - Patient Studies Lab Studies: Microbiology Studies 11/07/16 17:00 Blood Culture - Preliminary Blood NO GROWTH AFTER 24 HOURS 11/07/16 17:00 Blood Culture - Preliminary Blood NO GROWTH AFTER 24 HOURS Lab Studies 11/08/16 11/08/16 Range/Units 06:16 06:15 WBC 20.4 H (4.8-10.8) K/uL RBC 5.17 (3.80-5.20) Mil/uL Hgb 9.4 L (11.0-16.0) g/dL Hct 31.8 L (34.0-47.0) % MCV 61.5 L (81.0-99.0) fL MCH 18.1 L (27.0-31.0) pg MCHC 29.4 L (33.0-37.0) g/dL RDW 21.5 H (11.5-14.5) % Plt Count 371 (130-400) K/uL MPV 9.4 (7.2-11.7) fL Neut % (Auto) 90.1 H (50.0-75.0) % Lymph % (Auto) 4.6 L (20.0-40.0) % [place] % (Auto) 4.7 (0.0-10.0) % Eos % (Auto) 0.1 (0.0-4.0) % Baso % (Auto) 0.5 (0.0-2.0) % Neut # 18.4 H (1.8-7.0) K/uL Lymph # 0.9 L (1.0-4.3) K/uL [place] # 1.0 H (0.0-0.8) K/uL Eos # 0.0 (0.0-0.7) K/uL Baso # 0.1 (0.0-0.2) K/uL Neutrophils % (Manual) 90 H (50-75) % Lymphocytes % (Manual) 6 L (20-40) % Monocytes % (Manual) 4 (0-10) % Toxic Granulation Present Platelet Estimate Normal (NORMAL) Large Platelets Present Hypochromasia (manual) Slight Poikilocytosis (manual Slight Anisocytosis (manual) Slight Microcytosis (manual) Slight Macrocytosis (manual) Slight Ovalocytes Slight [place] Cells Slight Sodium 145 (132-148) mmol/L Potassium 3.3 L (3.6-5.2) mmol/L Chloride 110 H (98-107) mmol/L Carbon Dioxide 23 (22-30) mmol/L Anion Gap 15 (10-20) BUN 19 H (7-17) mg/dL Creatinine 0.6 L (0.7-1.2) MG/DL Est GFR ( Amer) > 60 Est GFR (Non-Af Amer) > 60 Random Glucose 160 H (65-105) mg/dL Calcium 8.9 (8.6-10.4) mg/dl Phosphorus 2.1 L (2.5-4.5) mg/dL Magnesium 1.9 (1.6-2.3) mg/dL Total Bilirubin 0.7 (0.2-1.3) mg/dL AST 37 H D (14-36) U/L ALT 28 (9-52) U/L Alkaline Phosphatase 103 (38-126) U/L Total Protein 5.6 L (6.3-8.3) g/dL Albumin 2.5 L D (3.5-5.0) g/dL Globulin 3.0 (2.2-3.9) gm/dL Albumin/Globulin Ratio 0.8 L (1.0-2.1) Laboratory Results - last 24 hr 11/08/16 11/08/16 06:15 06:16 WBC 20.4 H RBC 5.17 Hgb 9.4 L Hct 31.8 L MCV 61.5 L MCH 18.1 L MCHC 29.4 L RDW 21.5 H Plt Count 371 MPV 9.4 Neut % (Auto) 90.1 H Lymph % (Auto) 4.6 L [place] % (Auto) 4.7 Eos % (Auto) 0.1 Baso % (Auto) 0.5 Neut # 18.4 H Lymph # 0.9 L [place] # 1.0 H Eos # 0.0 Baso # 0.1 Neutrophils % (Manual) 90 H Lymphocytes % (Manual) 6 L Monocytes % (Manual) 4 Toxic Granulation Present Platelet Estimate Normal Large Platelets Present Hypochromasia (manual) Slight Poikilocytosis (manual Slight Anisocytosis (manual) Slight Microcytosis (manual) Slight Macrocytosis (manual) Slight Ovalocytes Slight [place] Cells Slight Sodium 145 Potassium 3.3 L Chloride 110 H Carbon Dioxide 23 Anion Gap 15 BUN 19 H Creatinine 0.6 L Est GFR ( Amer) > 60 Est GFR (Non-Af Amer) > 60 Random Glucose 160 H Calcium 8.9 Phosphorus 2.1 L Magnesium 1.9 Total Bilirubin 0.7 AST 37 H D ALT 28 Alkaline Phosphatase 103 Total Protein 5.6 L Albumin 2.5 L D Globulin 3.0 Albumin/Globulin Ratio 0.8 L Attending/Attestation - Attestation I have personally seen and examined this patient.: Yes I have fully participated in the care of the patient.: Yes I have reviewed all pertinent clinical information: Yes Notes (Text): Patient is currently seen by me. In the morning I spoke with the neurosurgeon, also infectious disease and ENT evaluation. Patient is currently having inflammation and infection of the parotid gland. Patient airway is maintained well. No evidence of any obstruction at this time. MRI of the brain showing evidence of possible meningioma. Currently on IV antibiotic Follow up with the neurosurgery. And will follow the patient
--- NOTE | 2016-11-08 12:21 | CP.PCM.CON ---
History of Present Illness - History of Present Illness History of Present Illness: Original Note: IV antibiotics ordered after examining pt and reviewing records and discussing with groundman History of Present Illness - History of Present Illness History of Present Illness: 73yo PMHx HTN, arthritis, constipation, UTI's, internal hemorrhoids, right and left ovarian cystic masses (Ovarian CA workup not complete). p/w parotitis with airway compromise. Neuro: right sided weakness, Patient found to have large left sided mass in brain seen on head CT. 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 Single lesion, neurosurgical consult and hem/onc consult. Past Patient History - Infectious Disease Hx of Infectious Diseases: None - Tetanus Immunizations Tetanus Immunization: Unknown - Past Medical History & Family History Past Medical History?: No - Past Social History Smoking Status: Unknown If Ever Smoked - CARDIAC Hx Hypertension: Yes - PULMONARY Hx Respiratory Disorders: No - NEUROLOGICAL Hx Neurological Disorder: No - HEENT Hx HEENT Problems: No - RENAL Hx Chronic Kidney Disease: No - ENDOCRINE/METABOLIC Hx Endocrine Disorders: No - HEMATOLOGICAL/ONCOLOGICAL Hx Blood Disorders: No - INTEGUMENTARY Hx Dermatological Problems: No - MUSCULOSKELETAL/RHEUMATOLOGICAL Hx Falls: No (Unknown) - GASTROINTESTINAL Hx Gastrointestinal Disorders: No - GENITOURINARY/GYNECOLOGICAL Hx Genitourinary Disorders: No - PSYCHIATRIC Hx Substance Use: No - SURGICAL HISTORY Hx Surgeries: Yes Hx Cataract Extraction: Yes Hx Tubal Ligation: Yes - ANESTHESIA Hx Anesthesia: Yes Hx Anesthesia Reactions: No Hx Malignant Hyperthermia: No Meds Allergies/Adverse Reactions: Allergies Allergy/AdvReac Type Severity Reaction Status Date / Time No Known Allergies Allergy Verified 04/17/14 17:38 - Medications Medications: Current Medications Enalaprilat (Vasotec) 1.25 mg IV Q6 [facility] Last Admin: 11/08/16 06:13 Dose: 1.25 mg Famotidine (Pepcid) 20 mg IVP DAILY [facility] Last Admin: 11/08/16 11:00 Dose: 20 mg Hydralazine HCl (Apresoline) 10 mg IVP Q6H [facility] Last Admin: 11/08/16 06:11 Dose: Not Given Clindamycin Phosphate 600 mg/ (Sodium Chloride) 54 mls @ 100 mls/hr IVPB Q6H [facility] Last Admin: 11/08/16 10:08 Dose: 100 mls/hr Ceftriaxone Sodium 2 gm/ (Sodium Chloride) 100 mls @ 100 mls/hr IVPB BID SUJEY Results - Vital Signs Recent Vital Signs: Last Vital Signs Temp 98 F 11/08/16 08:00 Pulse 79 11/08/16 09:00 Resp 15 11/08/16 09:00 BP 154/67 H 11/08/16 08:56 Pulse Ox 100 11/08/16 09:00 - Labs Result Diagrams: 11/08/16 06:16 11/08/16 06:15 Labs: Laboratory Results - last 24 hr 11/07/16 11/08/16 11/08/16 13:15 06:15 06:16 WBC 20.4 H RBC 5.17 Hgb 9.4 L Hct 31.8 L MCV 61.5 L MCH 18.1 L MCHC 29.4 L RDW 21.5 H Plt Count 371 MPV 9.4 Neut % (Auto) 90.1 H Lymph % (Auto) 4.6 L [place] % (Auto) 4.7 Eos % (Auto) 0.1 Baso % (Auto) 0.5 Neut # 18.4 H Lymph # 0.9 L [place] # 1.0 H Eos # 0.0 Baso # 0.1 Neutrophils % (Manual) 90 H Lymphocytes % (Manual) 6 L Monocytes % (Manual) 4 Toxic Granulation Present Platelet Estimate Normal Large Platelets Present Hypochromasia (manual) Slight Poikilocytosis (manual Slight Anisocytosis (manual) Slight Microcytosis (manual) Slight Macrocytosis (manual) Slight Ovalocytes Slight [place] Cells Slight pO2 27 L VBG pH 7.30 L VBG pCO2 42 VBG HCO3 19.1 VBG Total CO2 22.0 VBG O2 Sat (Calc) 51.1 VBG Base Excess -5.5 L VBG Potassium 3.6 Sodium 145.0 145 Chloride 117.0 H 110 H Glucose 115 H Lactate 1.6 Potassium 3.3 L Carbon Dioxide 23 Anion Gap 15 BUN 19 H Creatinine 0.6 L Est GFR ( Amer) > 60 Est GFR (Non-Af Amer) > 60 Random Glucose 160 H Calcium 8.9 Phosphorus 2.1 L Magnesium 1.9 Total Bilirubin 0.7 AST 37 H D ALT 28 Alkaline Phosphatase 103 Total Protein 5.6 L Albumin 2.5 L D Globulin 3.0 Albumin/Globulin Ratio 0.8 L Venous Blood Potassium 3.6
[2016-11-08] MEDS ORDERED: Iodixanol 320 MG/ML 100 ML BOTTLE IV ONE (14:07)
--- NOTE | 2016-11-08 14:16 | CARD ---
APPROVED REPORT EKG Measurement Heart [id number] <Conclusion> Sinus tachycardia Moderate voltage criteria for LVH, may be normal variant Borderline ECG
--- NOTE | 2016-11-08 15:52 | MRI ---
PROCEDURE: MRI BRAIN WITH AND WITHOUT CONTRAST HISTORY: r/o abscess COMPARISON: Head CT without contrast 11/07/2016 with subsequent contrast head CT 11/07/2016 as well. TECHNIQUE: Multiplanar, multisequence MR images of the brain were obtained with and without intravenous contrast enhancement. FINDINGS: HEMORRHAGE: Included discussion below. DWI: No evidence of an acute or early subacute infarction. BRAIN PARENCHYMA: The previous previously demonstrated lesion at the left frontal region measures 4.5 x 6.5 x 5.0 cm (transverse by anteroposterior by superoinferior dimensions). It appears to have trace CSF associated with this periphery in numerous locations and the places displaces the right frontal lobe medially at the midline by approximately 9.5 mm. It has T2 characteristics which follow grant matter and contains a few calcifications best seen in the prior CT examination is noted above, and is well-circumscribed. Trace hemosiderin is difficult exclude the medial portion of this lesion though these punctate gradient echo hypo intense foci may bridge represent additional calcification. Local says sulci are effaced and moderate diffuse enhancement is appreciate following gadolinium administration. Further, there is moderate restricted diffusion associated with this lesion. Findings may receive represent an atypical meningioma, with malignant cell type not excluded. Abscesses frequently show restricted diffusion more so than most masses though this is not favored due to the shape and homogeneous appearance of this lesion throughout multiple sequences as well as on gadolinium enhancement. Less likely would be an intra-axial lesion such is a oligodendroglioma or astrocytoma. Consider tissue diagnosis. Diffuse cerebral atrophy and limited chronic microangiopathy are identified otherwise. A small, chronic lacune is seen the left cerebellum inferiorly. ENHANCEMENT: Please see discussion above. VENTRICLES: There is partial effacement of left lateral ventricle. No definite hydrocephalus. CRANIUM: Unremarkable. ORBITS: Grossly unremarkable. PARANASAL SINUSES/MASTOIDS: Bilateral mastoiditis identified. VASCULAR SYSTEM: Skull base flow voids intact. OTHER FINDINGS: Prominence of the right parotid gland is appreciated (superficial portion) with local edema which may reflect parotitis. Further clinical correlation is advised. A focal lesion not clearly identified however the entire parotid glands not captured in this exam. IMPRESSION: 1. 6.5 cm enhancing lesion is identified at the left frontal region which is felt to be extra-axial and potentially software support representative of an atypical meningioma, potentially malignant. Differential diagnosis is as discussed above. 2. Age-related degenerate change are identified as discussed above. A chronic lacune is at the inferior left cerebellum. 3. Incidental note is made of of the superficial portion right parotid gland identified with local edema which may reflect parotitis. Further clinical correlation is advised. Consider follow-up neck CT without contrast for full characterization.
--- NOTE | 2016-11-08 16:04 | CT ---
PROCEDURE: CT Chest, Abdomen and Pelvis with intravenous contrast HISTORY: intra cranial tumor, h/o ovrian tumor COMPARISON: CT abdomen/pelvis 04/17/2014 TECHNIQUE: IV dose administered: 100 mL Visipaque 320 Radiation dose: Total exam DLP = 1345.42 mGy-cm. This CT exam was performed using one or more of the following dose reduction techniques: Automated exposure control, adjustment of the mA and/or kV according to patient size, and/or use of iterative reconstruction technique. FINDINGS: CT CHEST WITH CONTRAST: LUNGS: 3 mm nodule, subpleural, in the apical segment right upper lobe. No other pulmonary mass is identified. There is curvilinear band -like pleural-based scar in the left lower lobe. MEDIASTINUM: Heterogeneity of the thyroid gland. 3 mm nodule in right lobe of thyroid. Consider correlation with thyroid ultrasound examination. Normal caliber of thoracic aorta and main pulmonary artery. No mediastinal lymphadenopathy. Normal heart size. Mitral annular calcification. . LYMPH NODES: Unremarkable. PLEURA: Minimal posterior pleural thickening at left base. No pleural effusion. No pneumothorax. BONES: No acute fracture. Sclerotic lesion at the anterior inferior corner of the T11 vertebra. Unchanged from 2015. Sclerotic lesion also seen in the T6 vertebra. No prior for comparison. OTHER FINDINGS: None. CT ABDOMEN AND PELVIS: LIVER: Coarse dystrophic type calcification in the right lobe of the liver unchanged from 04/17/2014. No hepatic mass. No biliary dilatation. GALLBLADDER AND BILE DUCTS: Unremarkable. PANCREAS: Unremarkable. No gross lesion or ductal dilatation. SPLEEN: Unremarkable. ADRENALS: Unremarkable. No mass. KIDNEYS AND URETERS: Mild increase in size of low-density mass in mid left kidney, from 2.5 cm in 2015 22.8 cm currently. This measures 11 Hounsfield units and most likely represents a cyst. However, given the interval change in size, correlation with ultrasound examination is suggested. No right renal mass. No calculus or hydronephrosis. VASCULATURE: Unremarkable. No aortic aneurysm. BOWEL: Unremarkable. No obstruction. No gross mural thickening. APPENDIX: Normal appendix. PERITONEUM: Unremarkable. No free fluid. No free air. LYMPH NODES: Unremarkable. No enlarged lymph nodes. BLADDER: Decompressed around a Snow catheter balloon. REPRODUCTIVE: The uterus is significant for a large fluid collection within the fundal region. This may represent an endometrial fluid collection or may represent a necrotic neoplasm. This should be correlated with ultrasound examination. There is a 2.1 cm nodule in the wall of the uterus protruding into this fluid collection. This was not clearly evident on prior examination. There are several coarse calcifications in the anterior wall of the uterus, likely calcified degenerated fibroids. These were evident previously as well. BONES: No acute fracture. Multiple small sclerotic lesions are seen in lumbar vertebrae, unchanged from prior examination. There is grade 1-2 spondylolisthesis at L5-S1 with bilateral spondylolysis. OTHER FINDINGS: Mild nonspecific presacral edema which represents interval change from prior examination. IMPRESSION: Bilateral cystic adnexal masses, the larger of which on the right side has decreased mildly since 04/17/2014. Left-sided cystic adnexal mass is unchanged in size. Recommend correlation with ultrasound. Large amount of fluid within uterus, possibly due to endometrial neoplasm or cervical stenosis or less likely necrotic uterine mass. This represents interval change from previous. 2.1 cm right-sided uterine fibroid protruding into this central fluid collection. Mild enlargement of low-density left renal mass, likely cyst. Recommend correlation with ultrasound examination of the kidneys. Heterogeneous thyroid gland with 3 mm nodule in right lobe. Recommend correlation with ultrasound examination.
--- NOTE | 2016-11-08 16:46 | CON ---
DATE: 11/08/2016 REFERRING PHYSICIAN: Dr. Naomi Pugh. REASON FOR CONSULTATION: Parotitis. HISTORY OF PRESENT ILLNESS: This is a 76-year-old female who was noted to have parotid enlargement on the right. The patient does not speak or communicate well. Therefore, further history cannot be obtained from the patient. PAST MEDICAL HISTORY: As noted in the chart by me. MEDICATIONS: As noted in the chart by me. PHYSICAL EXAMINATION: HEAD: Atraumatic, normocephalic. FACE: Good facial movements bilaterally; however, facial exam is limited secondary to patient not being cooperative. CONSTITUTIONAL: Well nourished. COMMUNICATION: The patient does not communicate appropriately. EXTERNAL NOSE: No masses. No lesions. No erythema. No edema. INTERNAL NOSE: Deviated septum. No masses. No lesions. No erythema. No edema. ORAL CAVITY AND OROPHARYNX: Limited exam secondary to patient not being cooperative. No masses. No lesions. No erythema. No edema. LIPS AND GUMS: Limited exam secondary to the patient not being cooperative. No masses. No lesions. No erythema. No edema. NECK: There is edema of the right parotid gland. There is overlying erythema. LYMPH NODES: No lymphadenopathy of the neck. THYROID: No thyromegaly, no goiter. LABORATORY DATA: CAT scan was reviewed by me reveals parotitis, reading also indicates asymmetrically enlarged mild tonsils; however, tonsils and BOT could not be visualized. ASSESSMENT: 1. Parotitis. 2. Deviated septum. PLAN: Continue IV antibiotics. I will do a flexible laryngoscopy to try to visualize the tonsils and base of tongue. Neftaly Simeon MD MTDAhsan
--- NOTE | 2016-11-08 17:59 | CP.PCM.PN ---
Subjective - Date & Time of Evaluation Date of Evaluation: 11/08/16 Time of Evaluation: 12:20 - Subjective Subjective: clinically same On IV antibiotic Objective - Vital Signs/Intake and Output Vital Signs (last 24 hours): Temp Pulse Resp BP Pulse Ox 98 F 84 16 149/85 100 11/08/16 12:00 11/08/16 13:00 11/08/16 13:00 11/08/16 17:34 11/08/16 13:00 Intake and Output: 11/08/16 11/08/16 06:59 18:59 Intake Total 1250 1365 Output Total 465 440 Balance 785 925 - Medications Medications: Current Medications Enalaprilat (Vasotec) 1.25 mg IV Q6 [facility] Last Admin: 11/08/16 17:34 Dose: 1.25 mg Famotidine (Pepcid) 20 mg IVP DAILY [facility] Last Admin: 11/08/16 11:00 Dose: 20 mg Hydralazine HCl (Apresoline) 10 mg IVP Q6H [facility] Last Admin: 11/08/16 12:22 Dose: 10 mg Clindamycin Phosphate 600 mg/ (Sodium Chloride) 54 mls @ 100 mls/hr IVPB Q6H [facility] Last Admin: 11/08/16 16:52 Dose: 100 mls/hr Ceftriaxone Sodium 2 gm/ (Sodium Chloride) 100 mls @ 100 mls/hr IVPB BID [facility] Last Admin: 11/08/16 17:32 Dose: 100 mls/hr - Labs Labs: 11/08/16 06:16 11/08/16 06:15 PT 14.6 SECONDS (9.7-12.2) H 11/07/16 10:06 INR 1.3 11/07/16 10:06 APTT 29 SECONDS (21-34) 11/07/16 10:06 - Constitutional Appears: Well - Head Exam Head Exam: ATRAUMATIC, NORMAL INSPECTION, NORMOCEPHALIC - Eye Exam Eye Exam: EOMI, Normal appearance, PERRL Pupil Exam: NORMAL ACCOMODATION, PERRL - ENT Exam ENT Exam: Mucous Membranes Moist, Normal Exam - Neck Exam Neck Exam: Full ROM, Normal Inspection. absent: Lymphadenopathy - Respiratory Exam Respiratory Exam: Decreased Breath Sounds - Cardiovascular Exam Cardiovascular Exam: REGULAR RHYTHM, +S1, +S2 - GI/Abdominal Exam GI & Abdominal Exam: Soft, Diminished Bowel Sounds - Rectal Exam Rectal Exam: Deferred - Neurological Exam Neurological Exam: Altered Assessment and Plan (1) Altered mental status Status: Acute (2) Parotiditis Status: Acute (3) Respiratory distress Status: Acute (4) Abdominal pain Status: Acute (5) Anemia Status: Acute (6) Constipation Status: Acute (7) Hyperglycemia Status: Acute (8) Hypokalemia Status: Acute (9) Ovarian cystic mass Status: Acute (10) Prophylactic measure Status: Acute (11) UTI (urinary tract infection) Status: Acute - Assessment and Plan (Free Text) Plan: Continue IV antibiotics Neurosurgery ID Follow-up with intesivist Continue other meds as ordered Follow-up labs Follow-up imaging Follow-up cultures
[2016-11-09] MEDS: Enalaprilat 2.5 MG/2 ML IV SCH ×4 (00:45→17:45)
[2016-11-09 06:36] LABS: BASO # 0.1 K/uL (0.0-0.2); BASO % 0.6 % (0.0-2.0); EOS # 0.2 K/uL (0.0-0.7); EOS % 1.1 % (0.0-4.0); HEMATOCRIT 35.7 % (34.0-47.0); LYMPH # 1.3 K/uL (1.0-4.3); LYMPH % 8.5 % (20.0-40.0); MEAN CELL VOLUME 61.8 fL (81.0-99.0); MEAN CORPUSCULAR HEMOGLOBIN 17.9 pg (27.0-31.0); MONO # 0.8 K/uL (0.0-0.8); MONO % 5.2 % (0.0-10.0); NRBC % 0.1 % (0.0-2.0); PLATELET COUNT 397 K/uL (130-400); RED CELL DISTRIBUTION WIDTH 22.4 % (11.5-14.5); WHITE BLOOD COUNT 15.9 K/uL (4.8-10.8)
[2016-11-09 06:57] LABS: ALB/GLOB RATIO 0.9 (1.0-2.1); ALKALINE PHOSPHATASE 100 U/L (38-126); ALT/SGPT 30 U/L (9-52); AST/SGOT 27 U/L (14-36); BILIRUBIN,TOTAL 0.4 mg/dL (0.2-1.3); BLOOD UREA NITROGEN 19 mg/dL (7-17); CALCIUM 9.3 mg/dl (8.6-10.4); CARBON DIOXIDE 27 mmol/L (22-30); CHLORIDE 109 mmol/L (98-107); GFR AFRICAN-AMERICAN > 60; GLUCOSE,RANDOM 165 mg/dL (65-105); POTASSIUM 3.3 mmol/L (3.6-5.2); SODIUM 148 mmol/L (132-148); TOTAL PROTEIN 5.9 g/dL (6.3-8.3)
[2016-11-09 08:27] LABS: EOSINOPHIL 2 % (0-4); NEUTROPHIL 74 % (50-75); TOTAL CELLS COUNTED 100
[2016-11-09 08:28] LABS: LARGE PLATELETS PRESENT
[2016-11-09] MEDS ORDERED: Potassium Phosphate 15 MMOLE in Sodium Chloride 0.9% 250 ML IVPB ONE (10:00)
--- NOTE | 2016-11-09 11:06 | CP.PCM.PN ---
Subjective - Date & Time of Evaluation Date of Evaluation: 11/09/16 Time of Evaluation: 09:00 - Subjective Subjective: afeb iv rx reordered cultures pending Objective - Vital Signs/Intake and Output Vital Signs (last 24 hours): Temp Pulse Resp BP Pulse Ox 98.8 F 107 H 18 145/91 H 98 11/09/16 08:00 11/09/16 10:01 11/09/16 10:01 11/09/16 10:01 11/09/16 10:01 Intake and Output: 11/09/16 11/09/16 06:59 18:59 Intake Total 460 190 Output Total 385 110 Balance 75 80 - Medications Medications: Current Medications Enalaprilat (Vasotec) 1.25 mg IV Q6 [facility] Last Admin: 11/09/16 06:00 Dose: 1.25 mg Famotidine (Pepcid) 20 mg IVP DAILY [facility] Last Admin: 11/09/16 09:56 Dose: 20 mg Hydralazine HCl (Apresoline) 10 mg IVP Q6H [facility] Last Admin: 11/09/16 06:00 Dose: 10 mg Clindamycin Phosphate 600 mg/ (Sodium Chloride) 54 mls @ 100 mls/hr IVPB Q6H [facility] Last Admin: 11/09/16 10:09 Dose: 100 mls/hr Ceftriaxone Sodium 2 gm/ (Sodium Chloride) 100 mls @ 100 mls/hr IVPB BID [facility] Last Admin: 11/09/16 09:56 Dose: 100 mls/hr Potassium Phosphate 15 mmole/ (Sodium Chloride) 255 mls @ 42.5 mls/hr IVPB ONCE ONE Stop: 11/09/16 15:59 Ketorolac Tromethamine (Toradol) 30 mg IVP Q6 PRN PRN Reason: Pain, Mild (1-3) Last Admin: 11/09/16 10:05 Dose: 30 mg - Labs Labs: 11/09/16 06:24 11/09/16 06:24 PT 14.6 SECONDS (9.7-12.2) H 11/07/16 10:06 INR 1.3 11/07/16 10:06 APTT 29 SECONDS (21-34) 11/07/16 10:06 - Constitutional Appears: Non-toxic, Confused - Head Exam Head Exam: NORMOCEPHALIC - Eye Exam Eye Exam: absent: Scleral icterus - ENT Exam ENT Exam: Mucous Membranes Dry - Neck Exam Neck Exam: absent: Lymphadenopathy - Respiratory Exam Respiratory Exam: Decreased Breath Sounds - Cardiovascular Exam Cardiovascular Exam: REGULAR RHYTHM - GI/Abdominal Exam GI & Abdominal Exam: Distended, Soft Assessment and Plan (1) Parotiditis Status: Acute
--- NOTE | 2016-11-09 13:19 | CP.CCUPN ---
Addendum entered and electronically signed by Sheree Cespedes 11/09/16 16:20 : Neuro: left frontal mass with midline shift, causing brain compression. Original Note: <Sheree Cespedes. - Last Filed: 11/09/16 13:53> CCU Subjective - Physician Review Subjective (Free Text): Patient was seen and examined at bedside in the morning. Patient followed commands but did not respond to review of systems. As per the patient's daughter , the patient has chest pain since 5am and knee pain. 11/09/16 13:16 CCU Objective - Vital Signs / Intake & Output Vital Signs (Last 4 hours): Vital Signs Pulse Resp BP Pulse Ox 11/09/16 13:01 94 H 14 145/67 100 11/09/16 13:00 96 H 22 100 11/09/16 12:18 139/89 11/09/16 12:00 101 H 17 139/89 100 11/09/16 11:11 107 H 11/09/16 10:47 102 H 17 127/71 100 11/09/16 10:01 107 H 18 145/91 H 98 11/09/16 10:00 104 H 18 94 L Intake and Output (Last 8hrs): Intake & Output 11/08/16 11/09/16 11/09/16 22:59 06:59 14:59 Intake Total 440 290 362 Output Total 325 285 140 Balance 115 5 222 Weight 165 lb 5.547 oz Intake: Intake, IV Amount 200 50 192 Left Forearm 200 50 192 Right Antecubital 0 Oral 30 Tube Feeding 210 240 170 Output: Urine 325 285 140 Urethral (Snow) 325 285 140 - Physical Exam Head: Positive for: Atraumatic, Tenderness (right parotiditis), Swelling (right parotiditis). Negative for: Normocephalic Extroacular Muscles: Positive for: EOMI Mouth: Positive for: Moist Mucous Membranes Neck: Positive for: Other (tenderness and swelling with palpation of right neck extending from angle of mandible to clavicle) Respiratory/Chest: Positive for: Clear to Auscultation. Negative for: Wheezes, Rales Cardiovascular: Positive for: Murmurs, Normal S1, S2 Abdomen: Positive for: Normal Bowel Sounds. Negative for: Tenderness, Distention Upper Extremity: Positive for: Normal Inspection, Other (right sided weakness) Lower Extremity: Positive for: Edema, Swelling. Negative for: Normal Inspection , NORMAL PULSES (diminished) Skin: Positive for: Warm, Dry, Normal Color Psychiatric: Positive for: Alert, Lethargic - Medications Active Medications: Active Medications Generic Name Dose Route Start Last Admin Trade Name Freq PRN Reason Stop Dose Admin Enalaprilat 1.25 mg 11/08/16 06:00 11/09/16 12:18 Vasotec IV 1.25 mg Q6 SUJEY Administration Famotidine 20 mg 11/08/16 10:30 11/09/16 09:56 Pepcid IVP 20 mg DAILY SUJEY Administration Hydralazine HCl 10 mg 11/08/16 00:45 11/09/16 12:18 Apresoline IVP Not Given Q6H SUJEY Clindamycin Phosphate 600 mg/ 54 mls @ 100 mls/hr 11/07/16 17:00 11/09/16 10: 09 Sodium Chloride IVPB 100 mls/hr Q6H SUJEY Administration Ceftriaxone Sodium 2 gm/ 100 mls @ 100 mls/hr 11/08/16 18:00 11/09/16 09:56 Sodium Chloride IVPB 100 mls/hr BID SUJEY Administration Potassium Phosphate 15 mmole/ 255 mls @ 42.5 mls/hr 11/09/16 10:00 11/09/16 11:26 Sodium Chloride IVPB 11/09/16 15:59 42.5 mls/hr ONCE ONE Administration Ketorolac Tromethamine 30 mg 11/09/16 09:16 11/09/16 10:05 Toradol IVP 30 mg Q6 PRN Administration Pain, Mild (1-3) - Patient Studies Lab Studies: Microbiology Studies 11/07/16 17:00 Blood Culture - Preliminary Blood NO GROWTH AFTER 24 HOURS 11/07/16 17:00 Blood Culture - Preliminary Blood NO GROWTH AFTER 24 HOURS Lab Studies 11/09/16 11/09/16 Range/Units 06:24 06:24 WBC 15.9 H (4.8-10.8) K/uL RBC 5.77 H (3.80-5.20) Mil/uL Hgb 10.4 L (11.0-16.0) g/dL Hct 35.7 (34.0-47.0) % MCV 61.8 L (81.0-99.0) fL MCH 17.9 L (27.0-31.0) pg MCHC 29.0 L (33.0-37.0) g/dL RDW 22.4 H (11.5-14.5) % Plt Count 397 (130-400) K/uL MPV 9.0 (7.2-11.7) fL Neut % (Auto) 84.6 H (50.0-75.0) % Lymph % (Auto) 8.5 L (20.0-40.0) % Kerr % (Auto) 5.2 (0.0-10.0) % Eos % (Auto) 1.1 (0.0-4.0) % Baso % (Auto) 0.6 (0.0-2.0) % Neut # 13.4 H (1.8-7.0) K/uL Lymph # 1.3 (1.0-4.3) K/uL Kerr # 0.8 (0.0-0.8) K/uL Eos # 0.2 (0.0-0.7) K/uL Baso # 0.1 (0.0-0.2) K/uL Neutrophils % (Manual) 74 (50-75) % Band Neutrophils % 5 H (0-2) % Lymphocytes % (Manual) 13 L (20-40) % Monocytes % (Manual) 6 (0-10) % Eosinophils % (Manual) 2 (0-4) % Platelet Estimate Normal (NORMAL) Large Platelets Present Poikilocytosis (manual Slight Anisocytosis (manual) Moderate Microcytosis (manual) Moderate Target Cells Slight Ovalocytes Moderate Sodium 148 (132-148) mmol/L Potassium 3.3 L (3.6-5.2) mmol/L Chloride 109 H (98-107) mmol/L Carbon Dioxide 27 (22-30) mmol/L Anion Gap 15 (10-20) BUN 19 H (7-17) mg/dL Creatinine 0.7 (0.7-1.2) MG/DL Est GFR ( Amer) > 60 Est GFR (Non-Af Amer) > 60 Random Glucose 165 H (65-105) mg/dL Calcium 9.3 (8.6-10.4) mg/dl Phosphorus 2.0 L (2.5-4.5) mg/dL Magnesium 2.0 (1.6-2.3) mg/dL Total Bilirubin 0.4 (0.2-1.3) mg/dL AST 27 (14-36) U/L ALT 30 (9-52) U/L Alkaline Phosphatase 100 (38-126) U/L Troponin I 0.0290 (0.00-0.120) ng/mL Total Protein 5.9 L (6.3-8.3) g/dL Albumin 2.8 L (3.5-5.0) g/dL Globulin 3.1 (2.2-3.9) gm/dL Albumin/Globulin Ratio 0.9 L (1.0-2.1) Laboratory Results - last 24 hr 11/09/16 11/09/16 06:24 06:24 WBC 15.9 H RBC 5.77 H Hgb 10.4 L Hct 35.7 MCV 61.8 L MCH 17.9 L MCHC 29.0 L RDW 22.4 H Plt Count 397 MPV 9.0 Neut % (Auto) 84.6 H Lymph % (Auto) 8.5 L [place] % (Auto) 5.2 Eos % (Auto) 1.1 Baso % (Auto) 0.6 Neut # 13.4 H Lymph # 1.3 Kerr # 0.8 Eos # 0.2 Baso # 0.1 Neutrophils % (Manual) 74 Band Neutrophils % 5 H Lymphocytes % (Manual) 13 L Monocytes % (Manual) 6 Eosinophils % (Manual) 2 Platelet Estimate Normal Large Platelets Present Poikilocytosis (manual Slight Anisocytosis (manual) Moderate Microcytosis (manual) Moderate Target Cells Slight Ovalocytes Moderate Sodium 148 Potassium 3.3 L Chloride 109 H Carbon Dioxide 27 Anion Gap 15 BUN 19 H Creatinine 0.7 Est GFR ( Amer) > 60 Est GFR (Non-Af Amer) > 60 Random Glucose 165 H Calcium 9.3 Phosphorus 2.0 L Magnesium 2.0 Total Bilirubin 0.4 AST 27 ALT 30 Alkaline Phosphatase 100 Troponin I 0.0290 Total Protein 5.9 L Albumin 2.8 L Globulin 3.1 Albumin/Globulin Ratio 0.9 L EKG/Cardiology Studies: Cardiology / EKG Studies 11/09/16 08:15 EKG [ELECTROCARDIOGRAM] Stat Comment: Mode Of Transportation: Reason For Exam: chest pain Fingerstick Blood Sugar Results: 161 Review of Systems - Review of Systems Systems not reviewed;Unavailable: Other (ROS as per the daughter) - Constitutional Constitutional: absent: Fever - Cardiovascular Cardiovascular: Chest Pain - Respiratory Respiratory: absent: Dyspnea - Gastrointestinal Gastrointestinal: absent: Abdominal Pain, Diarrhea, Nausea, Vomiting - Musculoskeletal Musculoskeletal: Other (right knee pain) - Neurological Neurological: absent: Headaches Assessment/Plan (1) Parotiditis Assessment and plan: 73yo PMHx HTN, arthritis, constipation, UTI's, internal hemorrhoids, right and left ovarian cystic masses (Ovarian CA workup not complete). p/w parotitis with airway compromise. Patient has left frontal mass. Patient is still lethargic. Patient reports having chest pain starting this morning- troponins and ekg- negative. Neuro: - Alert, follows commands, language barrier. - Left Brain Mass - Neurosurgery consulted: Dr. Gautam, help appreciated Intervention after parotiditis improves - Head CT: 6.5 X 4.3 cm hyperattenuated left frontal mass with peripheral calcification and slight enhancement. mass effect upon left lateral ventricle and effacement of left sided cerebral sulci. 6mm midline shift from left to right consistent with subfalcine herniation. - Neurosurgery consulted: Dr. 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 We will monitor for any degradation and airway patency. - CXR: diffuse increased interstitial lung marking, biapical pleural thickening with upper lobe granulomatous changes; right hilar prominence. patchy increased markings at left lung base with possible trace pleural effusion. HEENT: - Parotiditis - Continue Clindamycin and Rocephin - ENT consulted: Dr. Simeon, help appreciated - Soft tissue Neck CT: asymmetric swelling, induration involving right parotid gland, underlying inflammation and/or infection; mild asymmetric prominence of left tonsillar/peritonsillar region with narrowing of airway at that level and extending inferiorly; mild thickening at level of tongue base; shotty cervical chain lymph nodes. - Swallow eval: failed CV: Hemodynamically stable. - Hypertensive - IV fluids discontinued - Enalapril 1.5 mg IV Q6 hours, Hydralazine 10mg IV Q6H - Troponinsx1- negative - EKG: sinus tachycardia at 112bpm; LVH Hem: Leukocytosis from sepsis Renal: No acute issues, urine output within normal limits, will monitor. - Hypokalemia and Hypophosphatemia: Potassium phosphate given Endo: No acute issues GI: Nothing by mouth, - Tube feeding: Jevity. ID: Sepsis secondary to parotiditis, - Continue Rocephin and Clindamycin. - ID consulted: Dr. Rubi, help appreciated. Prophylaxis: - DVT- discontinued lovenox; intracranial mass - GI- not currently indicated - Snow for strict I/O's during acute illness - Swallow Eval: f/u Code status - full code Current Visit: Yes Status: Acute <Jim Hodges S - Last Filed: 11/09/16 18:16> CCU Objective - Vital Signs / Intake & Output Vital Signs (Last 4 hours): Vital Signs Temp Pulse Resp BP Pulse Ox 11/09/16 17:45 152/85 H 11/09/16 17:12 152/85 H 11/09/16 17:11 93 H 16 11/09/16 17:01 89 15 100 11/09/16 17:00 94 H 16 11/09/16 16:01 93 H 18 138/67 100 11/09/16 16:00 97.4 F L 92 H 18 100 11/09/16 15:01 94 H 16 152/71 H 100 11/09/16 15:00 93 H 16 100 Intake and Output (Last 8hrs): Intake & Output 11/09/16 11/09/16 11/09/16 06:59 14:59 22:59 Intake Total 290 608 254 Output Total 285 205 65 Balance 5 403 189 Weight 165 lb 5.547 oz Intake: Intake, IV Amount 50 318 134 Left Forearm 50 318 134 Tube Feeding 240 290 120 Output: Urine 285 205 65 Urethral (Snow) 285 205 65 - Medications Active Medications: Active Medications Generic Name Dose Route Start Last Admin Trade Name Freq PRN Reason Stop Dose Admin Enalaprilat 1.25 mg 11/08/16 06:00 11/09/16 17:45 Vasotec IV 1.25 mg Q6 SUJEY Administration Famotidine 20 mg 11/08/16 10:30 11/09/16 09:56 Pepcid IVP 20 mg DAILY SUJEY Administration Hydralazine HCl 10 mg 11/08/16 00:45 11/09/16 18:04 Apresoline IVP Not Given Q6H SUJEY Clindamycin Phosphate 600 mg/ 54 mls @ 100 mls/hr 11/07/16 17:00 11/09/16 16: 30 Sodium Chloride IVPB 100 mls/hr Q6H SUJEY Administration Ceftriaxone Sodium 2 gm/ 100 mls @ 100 mls/hr 11/08/16 18:00 11/09/16 17:43 Sodium Chloride IVPB 100 mls/hr BID SUJEY Administration Ketorolac Tromethamine 30 mg 11/09/16 09:16 11/09/16 10:05 Toradol IVP 30 mg Q6 PRN Administration Pain, Mild (1-3) - Patient Studies Lab Studies: Microbiology Studies 11/07/16 17:00 Blood Culture - Preliminary Blood NO GROWTH AFTER 48 HOURS 11/07/16 17:00 Blood Culture - Preliminary Blood NO GROWTH AFTER 48 HOURS Lab Studies 11/09/16 11/09/16 Range/Units 06:24 06:24 WBC 15.9 H (4.8-10.8) K/uL RBC 5.77 H (3.80-5.20) Mil/uL Hgb 10.4 L (11.0-16.0) g/dL Hct 35.7 (34.0-47.0) % MCV 61.8 L (81.0-99.0) fL MCH 17.9 L (27.0-31.0) pg MCHC 29.0 L (33.0-37.0) g/dL RDW 22.4 H (11.5-14.5) % Plt Count 397 (130-400) K/uL MPV 9.0 (7.2-11.7) fL Neut % (Auto) 84.6 H (50.0-75.0) % Lymph % (Auto) 8.5 L (20.0-40.0) % Kerr % (Auto) 5.2 (0.0-10.0) % Eos % (Auto) 1.1 (0.0-4.0) % Baso % (Auto) 0.6 (0.0-2.0) % Neut # 13.4 H (1.8-7.0) K/uL Lymph # 1.3 (1.0-4.3) K/uL Kerr # 0.8 (0.0-0.8) K/uL Eos # 0.2 (0.0-0.7) K/uL Baso # 0.1 (0.0-0.2) K/uL Neutrophils % (Manual) 74 (50-75) % Band Neutrophils % 5 H (0-2) % Lymphocytes % (Manual) 13 L (20-40) % Monocytes % (Manual) 6 (0-10) % Eosinophils % (Manual) 2 (0-4) % Platelet Estimate Normal (NORMAL) Large Platelets Present Poikilocytosis (manual Slight Anisocytosis (manual) Moderate Microcytosis (manual) Moderate Target Cells Slight Ovalocytes Moderate Sodium 148 (132-148) mmol/L Potassium 3.3 L (3.6-5.2) mmol/L Chloride 109 H (98-107) mmol/L Carbon Dioxide 27 (22-30) mmol/L Anion Gap 15 (10-20) BUN 19 H (7-17) mg/dL Creatinine 0.7 (0.7-1.2) MG/DL Est GFR ( Amer) > 60 Est GFR (Non-Af Amer) > 60 Random Glucose 165 H (65-105) mg/dL Calcium 9.3 (8.6-10.4) mg/dl Phosphorus 2.0 L (2.5-4.5) mg/dL Magnesium 2.0 (1.6-2.3) mg/dL Total Bilirubin 0.4 (0.2-1.3) mg/dL AST 27 (14-36) U/L ALT 30 (9-52) U/L Alkaline Phosphatase 100 (38-126) U/L Troponin I 0.0290 (0.00-0.120) ng/mL Total Protein 5.9 L (6.3-8.3) g/dL Albumin 2.8 L (3.5-5.0) g/dL Globulin 3.1 (2.2-3.9) gm/dL Albumin/Globulin Ratio 0.9 L (1.0-2.1) Laboratory Results - last 24 hr 11/09/16 11/09/16 06:24 06:24 WBC 15.9 H RBC 5.77 H Hgb 10.4 L Hct 35.7 MCV 61.8 L MCH 17.9 L MCHC 29.0 L RDW 22.4 H Plt Count 397 MPV 9.0 Neut % (Auto) 84.6 H Lymph % (Auto) 8.5 L Kerr % (Auto) 5.2 Eos % (Auto) 1.1 Baso % (Auto) 0.6 Neut # 13.4 H Lymph # 1.3 Kerr # 0.8 Eos # 0.2 Baso # 0.1 Neutrophils % (Manual) 74 Band Neutrophils % 5 H Lymphocytes % (Manual) 13 L Monocytes % (Manual) 6 Eosinophils % (Manual) 2 Platelet Estimate Normal Large Platelets Present Poikilocytosis (manual Slight Anisocytosis (manual) Moderate Microcytosis (manual) Moderate Target Cells Slight Ovalocytes Moderate Sodium 148 Potassium 3.3 L Chloride 109 H Carbon Dioxide 27 Anion Gap 15 BUN 19 H Creatinine 0.7 Est GFR ( Amer) > 60 Est GFR (Non-Af Amer) > 60 Random Glucose 165 H Calcium 9.3 Phosphorus 2.0 L Magnesium 2.0 Total Bilirubin 0.4 AST 27 ALT 30 Alkaline Phosphatase 100 Troponin I 0.0290 Total Protein 5.9 L Albumin 2.8 L Globulin 3.1 Albumin/Globulin Ratio 0.9 L EKG/Cardiology Studies: Cardiology / EKG Studies 11/09/16 08:15 EKG [ELECTROCARDIOGRAM] Stat Comment: Mode Of Transportation: Reason For Exam: chest pain Attending/Attestation - Attestation I have personally seen and examined this patient.: Yes I have fully participated in the care of the patient.: Yes I have reviewed all pertinent clinical information: Yes Notes (Text): 11/09/16 18:12 Patient seen and examined in the intensive care unit. Status post fiberoptic laryngoscope by ENT showed no mass or obstruction Continue IV antibiotics and IV fluids Seen by oncology and neurosurgery
--- NOTE | 2016-11-09 18:13 | CP.PCM.PN ---
Subjective - Date & Time of Evaluation Date of Evaluation: 11/09/16 Time of Evaluation: 12:40 - Subjective Subjective: clinically same Consultants following IV treatment in progress Objective - Vital Signs/Intake and Output Vital Signs (last 24 hours): Temp Pulse Resp BP Pulse Ox 97.4 F L 93 H 16 152/85 H 100 11/09/16 16:00 11/09/16 17:11 11/09/16 17:11 11/09/16 17:45 11/09/16 17:01 Intake and Output: 11/09/16 11/09/16 06:59 18:59 Intake Total 460 862 Output Total 385 270 Balance 75 592 - Medications Medications: Current Medications Enalaprilat (Vasotec) 1.25 mg IV Q6 [facility] Last Admin: 11/09/16 17:45 Dose: 1.25 mg Famotidine (Pepcid) 20 mg IVP DAILY [facility] Last Admin: 11/09/16 09:56 Dose: 20 mg Hydralazine HCl (Apresoline) 10 mg IVP Q6H [facility] Last Admin: 11/09/16 18:04 Dose: Not Given Clindamycin Phosphate 600 mg/ (Sodium Chloride) 54 mls @ 100 mls/hr IVPB Q6H [facility] Last Admin: 11/09/16 16:30 Dose: 100 mls/hr Ceftriaxone Sodium 2 gm/ (Sodium Chloride) 100 mls @ 100 mls/hr IVPB BID [facility] Last Admin: 11/09/16 17:43 Dose: 100 mls/hr Ketorolac Tromethamine (Toradol) 30 mg IVP Q6 PRN PRN Reason: Pain, Mild (1-3) Last Admin: 11/09/16 10:05 Dose: 30 mg - Labs Labs: 11/09/16 06:24 11/09/16 06:24 PT 14.6 SECONDS (9.7-12.2) H 11/07/16 10:06 INR 1.3 11/07/16 10:06 APTT 29 SECONDS (21-34) 11/07/16 10:06 - Constitutional Appears: Well - Head Exam Head Exam: ATRAUMATIC, NORMAL INSPECTION, NORMOCEPHALIC - Eye Exam Eye Exam: EOMI, Normal appearance, PERRL Pupil Exam: NORMAL ACCOMODATION, PERRL - ENT Exam ENT Exam: Mucous Membranes Moist, Normal Exam - Neck Exam Neck Exam: Full ROM, Normal Inspection. absent: Lymphadenopathy - Respiratory Exam Respiratory Exam: Decreased Breath Sounds - Cardiovascular Exam Cardiovascular Exam: REGULAR RHYTHM, +S1, +S2 - GI/Abdominal Exam GI & Abdominal Exam: Soft, Diminished Bowel Sounds - Rectal Exam Rectal Exam: Deferred - Neurological Exam Neurological Exam: Altered Assessment and Plan (1) Altered mental status Status: Acute (2) Parotiditis Status: Acute (3) Respiratory distress Status: Acute (4) Abdominal pain Status: Acute (5) Anemia Status: Acute (6) Constipation Status: Acute (7) Hyperglycemia Status: Acute (8) Hypokalemia Status: Acute (9) Ovarian cystic mass Status: Acute (10) Prophylactic measure Status: Acute (11) UTI (urinary tract infection) Status: Acute - Assessment and Plan (Free Text) Plan: Continue meds as ordered s/p heme onc Dr Strong Neurosurgery and patient resource specialist on board iv abx as per ID Dr. Rubi Follow-up labs Diet as ordered maría same spoke to pt family regarding pt clinical condition
--- NOTE | 2016-11-09 18:33 | CON ---
DATE: 11/07/2016 HISTORY OF PRESENT ILLNESS: A 76-year-old female admitted on 11/07/2016. It should be noted that this is a re-dictation of a consult done yesterday lost in dictation. Presented to the emergency room with worsening mental status, generalized weakness, difficulty of walking. She normally walks with a walker. She previously was admitted to [facility] a month ago for back and leg pain, and was given pain medication. She reported in addition to the complaints of mental status change, new onset of right-sided facial swelling. The patient denies fever. In the emergency room, they noted that she had swelling of the right face. A CT scan demonstrated parotid swelling as well as deviation of the upper trachea, and swelling of the base of the tongue. CT of the head demonstrated a large left-sided mass in the frontotemporal region. Subsequent to the original consultation, an MRI was done of the brain, which confirms that the appearance of this very large tumor, is consistent with a meningioma. On admission, her white count was 19.8, and this morning is reduced to 15.9 after being on antibiotics. She was seen by ENT associate, jackeline, and they were planning to do a flexible laryngoscopy. Seen yesterday, she was awake, moving all extremities. Pupils were equal. EOM's were full. She was difficult to understand, verbal, and she had a difficult time following commands that may have been language related as opposed to aphasia. At this point, it is clear that the intracranial pathology is a meningioma and that this has been a slow progressive tumor. The mental status changes are more likely related to general sepsis and infections nature as opposed to the tumor. We would consider excising this tumor after she is medically cleared from her infection as well as cleared by ENT for intubation and cleared by anesthesia for general anesthesia given the swelling in her face and upper airway. Please re-consult when she is medically clear. Toan Gautam MD
--- NOTE | 2016-11-09 19:26 | CP.PCM.CON ---
History of Present Illness - History of Present Illness History of Present Illness: 76 year old female with a history of HTN, bilateral cystic ovarian masses, presenting to the hospital with lower extremity weakness, currently undergoing treatment for parotitis, found to have a large brain lesion. History is obtained from the patients grandson who notes his grandmother was doing well until she returned from [place] after the of her son. Her family notes she has been more sad and stressed and this has led to her functional decline. Past medical history: HTN Past surgical history: Denies Family history: Denies hematologic and oncologic problems Social history: Denies tobacco, alcohol, and illicit drug use. Allergies: NKA Review of systems: All remaining review of systems including HEENT, cardiovascular, respiratory, gastrointestinal, genitourinary, musculoskeletal, dermatologic, neurologic, and psychiatric are negative unless mentioned in the HPI. Past Patient History - Infectious Disease Hx of Infectious Diseases: None - Tetanus Immunizations Tetanus Immunization: Unknown - Past Medical History & Family History Past Medical History?: No - Past Social History Smoking Status: Unknown If Ever Smoked - CARDIAC Hx Hypertension: Yes - PULMONARY Hx Respiratory Disorders: No - NEUROLOGICAL Hx Neurological Disorder: No - HEENT Hx HEENT Problems: No - RENAL Hx Chronic Kidney Disease: No - ENDOCRINE/METABOLIC Hx Endocrine Disorders: No - HEMATOLOGICAL/ONCOLOGICAL Hx Blood Disorders: No - INTEGUMENTARY Hx Dermatological Problems: No - MUSCULOSKELETAL/RHEUMATOLOGICAL Hx Falls: No (Unknown) - GASTROINTESTINAL Hx Gastrointestinal Disorders: No - GENITOURINARY/GYNECOLOGICAL Hx Genitourinary Disorders: No - PSYCHIATRIC Hx Substance Use: No - SURGICAL HISTORY Hx Surgeries: Yes Hx Cataract Extraction: Yes Hx Tubal Ligation: Yes - ANESTHESIA Hx Anesthesia: Yes Hx Anesthesia Reactions: No Hx Malignant Hyperthermia: No Meds Allergies/Adverse Reactions: Allergies Allergy/AdvReac Type Severity Reaction Status Date / Time No Known Allergies Allergy Verified 04/17/14 17:38 - Medications Medications: Current Medications Enalaprilat (Vasotec) 1.25 mg IV Q6 [facility] Last Admin: 11/09/16 17:45 Dose: 1.25 mg Famotidine (Pepcid) 20 mg IVP DAILY [facility] Last Admin: 11/09/16 09:56 Dose: 20 mg Hydralazine HCl (Apresoline) 10 mg IVP Q6H [facility] Last Admin: 11/09/16 18:04 Dose: Not Given Clindamycin Phosphate 600 mg/ (Sodium Chloride) 54 mls @ 100 mls/hr IVPB Q6H [facility] Last Admin: 11/09/16 16:30 Dose: 100 mls/hr Ceftriaxone Sodium 2 gm/ (Sodium Chloride) 100 mls @ 100 mls/hr IVPB BID [facility] Last Admin: 11/09/16 17:43 Dose: 100 mls/hr Ketorolac Tromethamine (Toradol) 30 mg IVP Q6 PRN PRN Reason: Pain, Mild (1-3) Last Admin: 11/09/16 10:05 Dose: 30 mg Physical Exam - Head Exam Head Exam: ATRAUMATIC - Eye Exam Eye Exam: Normal appearance - ENT Exam ENT Exam: Mucous Membranes Dry - Respiratory Exam Respiratory Exam: NORMAL BREATHING PATTERN - Cardiovascular Exam Cardiovascular Exam: +S1, +S2 - GI/Abdominal Exam GI & Abdominal Exam: Normal Bowel Sounds - Extremities Exam Extremities exam: Positive for: pedal edema - Skin Skin Exam: Warm Results - Vital Signs Recent Vital Signs: Last Vital Signs Temp 97.4 F L 11/09/16 16:00 Pulse 86 11/09/16 18:02 Resp 16 11/09/16 18:02 BP 155/89 H 11/09/16 18:02 Pulse Ox 100 11/09/16 18:02 - Labs Result Diagrams: 11/09/16 06:24 11/09/16 06:24 Labs: Laboratory Results - last 24 hr 11/09/16 11/09/16 06:24 06:24 WBC 15.9 H RBC 5.77 H Hgb 10.4 L Hct 35.7 MCV 61.8 L MCH 17.9 L MCHC 29.0 L RDW 22.4 H Plt Count 397 MPV 9.0 Neut % (Auto) 84.6 H Lymph % (Auto) 8.5 L [place] % (Auto) 5.2 Eos % (Auto) 1.1 Baso % (Auto) 0.6 Neut # 13.4 H Lymph # 1.3 [place] # 0.8 Eos # 0.2 Baso # 0.1 Neutrophils % (Manual) 74 Band Neutrophils % 5 H Lymphocytes % (Manual) 13 L Monocytes % (Manual) 6 Eosinophils % (Manual) 2 Platelet Estimate Normal Large Platelets Present Poikilocytosis (manual Slight Anisocytosis (manual) Moderate Microcytosis (manual) Moderate Target Cells Slight Ovalocytes Moderate Sodium 148 Potassium 3.3 L Chloride 109 H Carbon Dioxide 27 Anion Gap 15 BUN 19 H Creatinine 0.7 Est GFR ( Amer) > 60 Est GFR (Non-Af Amer) > 60 Random Glucose 165 H Calcium 9.3 Phosphorus 2.0 L Magnesium 2.0 Total Bilirubin 0.4 AST 27 ALT 30 Alkaline Phosphatase 100 Troponin I 0.0290 Total Protein 5.9 L Albumin 2.8 L Globulin 3.1 Albumin/Globulin Ratio 0.9 L Assessment & Plan (1) Brain mass Assessment and Plan: felt to represent meningioma by imaging and neurosurgical evaluation Status: Acute (2) Anemia Assessment and Plan: will check ferritin, retic count, b12, folate, FOBT to further characterize Status: Acute (3) Leukocytosis Assessment and Plan: improving with antibiotics Status: Acute (4) Ovarian cystic mass Assessment and Plan: similar to slightly reduced in size compared to prior imaging outpatient f/u Thank you for this interesting consult. Status: Acute
[2016-11-10] MEDS: Enalaprilat 2.5 MG/2 ML IV SCH ×4 (00:30→18:17)
--- NOTE | 2016-11-10 05:18 | PROCN ---
DATE: 11/09/2016 PREOPERATIVE DIAGNOSES: Possible base of the tongue mass, possible tonsillar mass. POSTOPERATIVE DIAGNOSES: Possible base of the tongue mass, possible tonsillar mass. PROCEDURE: Flexile laryngoscopy. SIGNIFICANT FINDINGS: No masses and no lesions. DESCRIPTION OF PROCEDURE: The patient was placed in supine position, the flexile laryngoscopy was inserted to the left nasal cavity, passed through the nasopharynx, oropharynx and hypopharynx. The base of the tongue, vallecula, epiglottis, AE folds, false cords, true cords, pyriform sinuses, pharyngeal rios and arytenoids were brought into view. Some of the exam was limited secondary to the NG tube. However, the base of the tongue and the tonsillar areas were visualized. No masses or lesions were noted. The scope was and removed. The patient tolerated the procedure well. Neftaly Simeon MD [email or web address]
[2016-11-10 06:37] LABS: BASO # 0.1 K/uL (0.0-0.2); BASO % 0.9 % (0.0-2.0); EOS # 0.5 K/uL (0.0-0.7); EOS % 4.2 % (0.0-4.0); HEMATOCRIT 33.8 % (34.0-47.0); LYMPH # 1.2 K/uL (1.0-4.3); LYMPH % 9.8 % (20.0-40.0); MEAN CORPUSCULAR HEMOGLOBIN 18.4 pg (27.0-31.0); MEAN CORPUSCULAR HGB CONC 29.6 g/dL (33.0-37.0); MONO # 0.6 K/uL (0.0-0.8); MONO % 5.2 % (0.0-10.0); NRBC % 0.1 % (0.0-2.0); PLATELET COUNT 398 K/uL (130-400); RED CELL DISTRIBUTION WIDTH 22.4 % (11.5-14.5)
[2016-11-10 06:45] LABS: ALB/GLOB RATIO 0.8 (1.0-2.1); ALKALINE PHOSPHATASE 93 U/L (38-126); ALT/SGPT 32 U/L (9-52); AST/SGOT 27 U/L (14-36); BILIRUBIN,TOTAL 0.4 mg/dL (0.2-1.3); BLOOD UREA NITROGEN 19 mg/dL (7-17); CALCIUM 9.1 mg/dl (8.6-10.4); CARBON DIOXIDE 27 mmol/L (22-30); CHLORIDE 109 mmol/L (98-107); GFR AFRICAN-AMERICAN > 60; GLUCOSE,RANDOM 174 mg/dL (65-105); MAGNESIUM 1.9 mg/dL (1.6-2.3); POTASSIUM 3.3 mmol/L (3.6-5.2); SODIUM 147 mmol/L (132-148); TOTAL PROTEIN 5.6 g/dL (6.3-8.3)
[2016-11-10 08:36] LABS: EOSINOPHIL 8 % (0-4); NUCLEATED RED BLOOD CELL 1 % (0-0); TOTAL CELLS COUNTED 100
[2016-11-10 08:37] LABS: NEUTROPHIL 76 % (50-75)
[2016-11-10] MEDS ORDERED: Potassium Chloride 20 mEq/15 ml LIQ UD PO ONE (09:15)
--- NOTE | 2016-11-10 10:31 | CP.CCUPN ---
<Sheree Cespedes - Last Filed: 11/10/16 11:39> CCU Subjective - Physician Review Subjective (Free Text): Patient was seen and examined at bedside in the morning. Patient followed did not respond to review of systems. Patient is lethargic. 11/10/16 10:31 CCU Objective - Vital Signs / Intake & Output Vital Signs (Last 4 hours): Vital Signs Temp Pulse Resp BP Pulse Ox 11/10/16 08:01 110 H 17 164/89 H 98 11/10/16 08:00 98.4 F 108 H 13 99 11/10/16 07:01 106 H 15 154/88 H 100 Intake and Output (Last 8hrs): Intake & Output 11/09/16 11/10/16 11/10/16 22:59 06:59 14:59 Intake Total 604 570 80 Output Total 240 260 40 Balance 364 310 40 Weight 156 lb 8.451 oz Intake: Intake, IV Amount 284 50 Left Forearm 284 50 Oral 200 Tube Feeding 320 320 80 Output: Urine 240 260 40 Urethral (Snow) 240 260 40 - Physical Exam Head: Positive for: Atraumatic, Tenderness (right parotiditis), Swelling (right parotiditis). Negative for: Normocephalic Extroacular Muscles: Positive for: EOMI Mouth: Positive for: Moist Mucous Membranes Respiratory/Chest: Positive for: Rales, Rhonchi, Other (chest congestion). Negative for: Wheezes Cardiovascular: Positive for: Murmurs, Normal S1, S2, Tachycardic Abdomen: Positive for: Normal Bowel Sounds. Negative for: Tenderness, Distention Upper Extremity: Positive for: Normal Inspection, Other (right sided weakness) Lower Extremity: Positive for: Edema, Swelling. Negative for: Normal Inspection , NORMAL PULSES (diminished) Skin: Positive for: Warm, Dry, Normal Color Psychiatric: Positive for: Alert, Lethargic - Medications Active Medications: Active Medications Generic Name Dose Route Start Last Admin Trade Name Freq PRN Reason Stop Dose Admin Enalaprilat 1.25 mg 11/08/16 06:00 11/10/16 05:10 Vasotec IV 1.25 mg Q6 SUJEY Administration Famotidine 20 mg 11/08/16 10:30 11/10/16 09:06 Pepcid IVP 20 mg DAILY SUJEY Administration Hydralazine HCl 10 mg 11/08/16 00:45 11/10/16 06:00 Apresoline IVP Not Given Q6H SUJEY Clindamycin Phosphate 600 mg/ 54 mls @ 100 mls/hr 11/07/16 17:00 11/10/16 10: 30 Sodium Chloride IVPB 100 mls/hr Q6H SUJEY Administration Ceftriaxone Sodium 2 gm/ 100 mls @ 100 mls/hr 11/08/16 18:00 11/10/16 09:04 Sodium Chloride IVPB 100 mls/hr BID SUJEY Administration Ketorolac Tromethamine 30 mg 11/09/16 09:16 11/09/16 10:05 Toradol IVP 30 mg Q6 PRN Administration Pain, Mild (1-3) - Patient Studies Lab Studies: Microbiology Studies 11/07/16 17:00 Blood Culture - Preliminary Blood NO GROWTH AFTER 48 HOURS 11/07/16 17:00 Blood Culture - Preliminary Blood NO GROWTH AFTER 48 HOURS Lab Studies 11/10/16 11/10/16 Range/Units 06:27 06:27 WBC 12.0 H (4.8-10.8) K/uL RBC 5.45 H (3.80-5.20) Mil/uL Hgb 10.0 L (11.0-16.0) g/dL Hct 33.8 L (34.0-47.0) % MCV 62.0 L (81.0-99.0) fL MCH 18.4 L (27.0-31.0) pg MCHC 29.6 L (33.0-37.0) g/dL RDW 22.4 H (11.5-14.5) % Plt Count 398 (130-400) K/uL MPV 10.0 (7.2-11.7) fL Neut % (Auto) 79.9 H (50.0-75.0) % Lymph % (Auto) 9.8 L (20.0-40.0) % [place] % (Auto) 5.2 (0.0-10.0) % Eos % (Auto) 4.2 H (0.0-4.0) % Baso % (Auto) 0.9 (0.0-2.0) % Neut # 9.6 H (1.8-7.0) K/uL Lymph # 1.2 (1.0-4.3) K/uL [place] # 0.6 (0.0-0.8) K/uL Eos # 0.5 (0.0-0.7) K/uL Baso # 0.1 (0.0-0.2) K/uL Neutrophils % (Manual) 76 H (50-75) % Lymphocytes % (Manual) 12 L (20-40) % Monocytes % (Manual) 4 (0-10) % Eosinophils % (Manual) 8 H (0-4) % Nucleated RBC % 1 H (0-0) % Platelet Estimate Normal (NORMAL) Hypochromasia (manual) Slight Poikilocytosis (manual Slight Anisocytosis (manual) Slight Target Cells Slight Ovalocytes Slight Sodium 147 (132-148) mmol/L Potassium 3.3 L (3.6-5.2) mmol/L Chloride 109 H (98-107) mmol/L Carbon Dioxide 27 (22-30) mmol/L Anion Gap 14 (10-20) BUN 19 H (7-17) mg/dL Creatinine 0.6 L (0.7-1.2) MG/DL Est GFR ( Amer) > 60 Est GFR (Non-Af Amer) > 60 Random Glucose 174 H (65-105) mg/dL Calcium 9.1 (8.6-10.4) mg/dl Phosphorus 3.0 (2.5-4.5) mg/dL Magnesium 1.9 (1.6-2.3) mg/dL Total Bilirubin 0.4 (0.2-1.3) mg/dL AST 27 (14-36) U/L ALT 32 (9-52) U/L Alkaline Phosphatase 93 (38-126) U/L Total Protein 5.6 L (6.3-8.3) g/dL Albumin 2.5 L (3.5-5.0) g/dL Globulin 3.0 (2.2-3.9) gm/dL Albumin/Globulin Ratio 0.8 L (1.0-2.1) Laboratory Results - last 24 hr 11/10/16 11/10/16 06:27 06:27 WBC 12.0 H RBC 5.45 H Hgb 10.0 L Hct 33.8 L MCV 62.0 L MCH 18.4 L MCHC 29.6 L RDW 22.4 H Plt Count 398 MPV 10.0 Neut % (Auto) 79.9 H Lymph % (Auto) 9.8 L [place] % (Auto) 5.2 Eos % (Auto) 4.2 H Baso % (Auto) 0.9 Neut # 9.6 H Lymph # 1.2 [place] # 0.6 Eos # 0.5 Baso # 0.1 Neutrophils % (Manual) 76 H Lymphocytes % (Manual) 12 L Monocytes % (Manual) 4 Eosinophils % (Manual) 8 H Nucleated RBC % 1 H Platelet Estimate Normal Hypochromasia (manual) Slight Poikilocytosis (manual Slight Anisocytosis (manual) Slight Target Cells Slight Ovalocytes Slight Sodium 147 Potassium 3.3 L Chloride 109 H Carbon Dioxide 27 Anion Gap 14 BUN 19 H Creatinine 0.6 L Est GFR ( Amer) > 60 Est GFR (Non-Af Amer) > 60 Random Glucose 174 H Calcium 9.1 Phosphorus 3.0 Magnesium 1.9 Total Bilirubin 0.4 AST 27 ALT 32 Alkaline Phosphatase 93 Total Protein 5.6 L Albumin 2.5 L Globulin 3.0 Albumin/Globulin Ratio 0.8 L Fingerstick Blood Sugar Results: 161 Review of Systems - Review of Systems Systems not reviewed;Unavailable: Other (alert, lethargic, does not respond to questions/commands) Assessment/Plan (1) Parotiditis Assessment and plan: 73yo PMHx HTN, arthritis, constipation, UTI's, internal hemorrhoids, right and left ovarian cystic masses (Ovarian CA workup not complete). p/w parotitis with airway compromise. Patient has left frontal mass. Patient is still lethargic. Neuro: - Alert, lethargic - Left Brain Mass - Neurosurgery consulted: Dr. Gautam, help appreciated Intervention after parotiditis improves - Head CT: 6.5 X 4.3 cm hyperattenuated left frontal mass with peripheral calcification and slight enhancement. mass effect upon left lateral ventricle and effacement of left sided cerebral sulci. 6mm midline shift from left to right consistent with subfalcine herniation. - Brain MRI w/o contrast: 6.5 cm enhancing lesion at left frontal region, possibly an atypical meningioma, potentially malignant Pulm: Breathing with audible airway collapse sound secondary to swelling from parotiditis, not labored, oxygenating well with nasal cannula oxygen. We will monitor for any degradation and airway patency. - CXR: diffuse increased interstitial lung marking, biapical pleural thickening with upper lobe granulomatous changes; right hilar prominence. patchy increased markings at left lung base with possible trace pleural effusion. HEENT: - Parotiditis - Continue Clindamycin and Rocephin - ENT consulted: Dr. Simeon, help appreciated - Soft tissue Neck CT: asymmetric swelling, induration involving right parotid gland, underlying inflammation and/or infection; mild asymmetric prominence of left tonsillar/peritonsillar region with narrowing of airway at that level and extending inferiorly; mild thickening at level of tongue base; shotty cervical chain lymph nodes. - Swallow eval: failed - Laryngoscopy: no masses or lesions CV: Hemodynamically stable. - Continue Enalaprilat 1.5 mg IV Q6 hours, Hydralazine 10mg IV Q6H - Troponinsx1- negative - EKG: sinus tachycardia at 112bpm; LVH - PICC line placed today Hem: Leukocytosis from sepsis - Heme/Onc consulted for left frontal mass: Dr. Strong, help appreciated Renal: No acute issues, urine output within normal limits, will monitor. - Hypokalemia: KCl given Endo: No acute issues GI: Nothing by mouth, - Tube feeding: Jevity. ID: Sepsis secondary to parotiditis, - Continue Rocephin and Clindamycin. - ID consulted: Dr. Rubi, help appreciated. Prophylaxis: - DVT- discontinued lovenox; intracranial mass - GI- not currently indicated - Snow for strict I/O's during acute illness - Swallow Eval: failed - OT - Palliative care consulted Code status - full code Current Visit: Yes Status: Acute <Jim Hodges S - Last Filed: 11/10/16 15:24> CCU Objective - Vital Signs / Intake & Output Vital Signs (Last 4 hours): Vital Signs Temp Pulse Resp BP Pulse Ox 11/10/16 14:01 110 H 18 133/64 100 11/10/16 14:00 107 H 17 137/66 99 11/10/16 13:02 92 H 14 100 11/10/16 13:01 96 H 14 100 11/10/16 13:00 97 H 13 100 11/10/16 12:01 97 H 21 165/75 H 100 11/10/16 12:00 98.9 F 100 H 15 100 11/10/16 11:29 157/82 H Intake and Output (Last 8hrs): Intake & Output 11/10/16 11/10/16 11/10/16 06:59 14:59 22:59 Intake Total 570 670 Output Total 260 275 Balance 310 395 Weight 156 lb 8.451 oz Intake: Intake, IV Amount 50 150 Left Forearm 50 150 Oral 200 Tube Feeding 320 320 Other 200 Output: Urine 260 275 Urethral (Snow) 260 275 - Medications Active Medications: Active Medications Generic Name Dose Route Start Last Admin Trade Name Freq PRN Reason Stop Dose Admin Enalaprilat 1.25 mg 11/08/16 06:00 11/10/16 11:29 Vasotec IV 1.25 mg Q6 SUJEY Administration Famotidine 20 mg 11/08/16 10:30 11/10/16 09:06 Pepcid IVP 20 mg DAILY SUJEY Administration Hydralazine HCl 10 mg 11/08/16 00:45 11/10/16 13:03 Apresoline IVP 10 mg Q6H SUJEY Administration Clindamycin Phosphate 600 mg/ 54 mls @ 100 mls/hr 11/07/16 17:00 11/10/16 10: 30 Sodium Chloride IVPB 100 mls/hr Q6H SUJEY Administration Ceftriaxone Sodium 2 gm/ 100 mls @ 100 mls/hr 11/08/16 18:00 11/10/16 09:04 Sodium Chloride IVPB 100 mls/hr BID SUJEY Administration Ketorolac Tromethamine 30 mg 11/09/16 09:16 11/09/16 10:05 Toradol IVP 30 mg Q6 PRN Administration Pain, Mild (1-3) - Patient Studies Lab Studies: Microbiology Studies 11/07/16 17:00 Blood Culture - Preliminary Blood NO GROWTH AFTER 48 HOURS 11/07/16 17:00 Blood Culture - Preliminary Blood NO GROWTH AFTER 48 HOURS Lab Studies 11/10/16 11/10/16 Range/Units 06:27 06:27 WBC 12.0 H (4.8-10.8) K/uL RBC 5.45 H (3.80-5.20) Mil/uL Hgb 10.0 L (11.0-16.0) g/dL Hct 33.8 L (34.0-47.0) % MCV 62.0 L (81.0-99.0) fL MCH 18.4 L (27.0-31.0) pg MCHC 29.6 L (33.0-37.0) g/dL RDW 22.4 H (11.5-14.5) % Plt Count 398 (130-400) K/uL MPV 10.0 (7.2-11.7) fL Neut % (Auto) 79.9 H (50.0-75.0) % Lymph % (Auto) 9.8 L (20.0-40.0) % [place] % (Auto) 5.2 (0.0-10.0) % Eos % (Auto) 4.2 H (0.0-4.0) % Baso % (Auto) 0.9 (0.0-2.0) % Neut # 9.6 H (1.8-7.0) K/uL Lymph # 1.2 (1.0-4.3) K/uL [place] # 0.6 (0.0-0.8) K/uL Eos # 0.5 (0.0-0.7) K/uL Baso # 0.1 (0.0-0.2) K/uL Neutrophils % (Manual) 76 H (50-75) % Lymphocytes % (Manual) 12 L (20-40) % Monocytes % (Manual) 4 (0-10) % Eosinophils % (Manual) 8 H (0-4) % Nucleated RBC % 1 H (0-0) % Platelet Estimate Normal (NORMAL) Hypochromasia (manual) Slight Poikilocytosis (manual Slight Anisocytosis (manual) Slight Target Cells Slight Ovalocytes Slight Sodium 147 (132-148) mmol/L Potassium 3.3 L (3.6-5.2) mmol/L Chloride 109 H (98-107) mmol/L Carbon Dioxide 27 (22-30) mmol/L Anion Gap 14 (10-20) BUN 19 H (7-17) mg/dL Creatinine 0.6 L (0.7-1.2) MG/DL Est GFR ( Amer) > 60 Est GFR (Non-Af Amer) > 60 Random Glucose 174 H (65-105) mg/dL Calcium 9.1 (8.6-10.4) mg/dl Phosphorus 3.0 (2.5-4.5) mg/dL Magnesium 1.9 (1.6-2.3) mg/dL Total Bilirubin 0.4 (0.2-1.3) mg/dL AST 27 (14-36) U/L ALT 32 (9-52) U/L Alkaline Phosphatase 93 (38-126) U/L Total Protein 5.6 L (6.3-8.3) g/dL Albumin 2.5 L (3.5-5.0) g/dL Globulin 3.0 (2.2-3.9) gm/dL Albumin/Globulin Ratio 0.8 L (1.0-2.1) Laboratory Results - last 24 hr 11/10/16 11/10/16 06:27 06:27 WBC 12.0 H RBC 5.45 H Hgb 10.0 L Hct 33.8 L MCV 62.0 L MCH 18.4 L MCHC 29.6 L RDW 22.4 H Plt Count 398 MPV 10.0 Neut % (Auto) 79.9 H Lymph % (Auto) 9.8 L [place] % (Auto) 5.2 Eos % (Auto) 4.2 H Baso % (Auto) 0.9 Neut # 9.6 H Lymph # 1.2 [place] # 0.6 Eos # 0.5 Baso # 0.1 Neutrophils % (Manual) 76 H Lymphocytes % (Manual) 12 L Monocytes % (Manual) 4 Eosinophils % (Manual) 8 H Nucleated RBC % 1 H Platelet Estimate Normal Hypochromasia (manual) Slight Poikilocytosis (manual Slight Anisocytosis (manual) Slight Target Cells Slight Ovalocytes Slight Sodium 147 Potassium 3.3 L Chloride 109 H Carbon Dioxide 27 Anion Gap 14 BUN 19 H Creatinine 0.6 L Est GFR ( Amer) > 60 Est GFR (Non-Af Amer) > 60 Random Glucose 174 H Calcium 9.1 Phosphorus 3.0 Magnesium 1.9 Total Bilirubin 0.4 AST 27 ALT 32 Alkaline Phosphatase 93 Total Protein 5.6 L Albumin 2.5 L Globulin 3.0 Albumin/Globulin Ratio 0.8 L Attending/Attestation - Attestation I have personally seen and examined this patient.: Yes I have fully participated in the care of the patient.: Yes I have reviewed all pertinent clinical information: Yes Notes (Text): 11/10/16 15:23 Patient is seen and examined in the intensive care unit. Case discussed with house staff in the morning rounds. Patient is more awake and responsive Neurosurgical follow-up Continue present treatment for now
--- NOTE | 2016-11-10 13:47 | RAD ---
HISTORY: verify right PICC COMPARISON: Chest 11/07/2016. FINDINGS: LUNGS: No interval infiltrate pleural effusion or pneumothorax identified. PLEURA: No significant pleural effusion identified, no pneumothorax apparent. CARDIOVASCULAR: Normal. OSSEOUS STRUCTURES: No significant abnormalities. VISUALIZED UPPER ABDOMEN: Normal. OTHER FINDINGS: Interval right upper extremity PICC inserted terminating at the cavoatrial junction. Knees S2 was also inserted in the interval terminating at the epigastric region in the abdomen. IMPRESSION: No interval acute cardiopulmonary disease. PICC catheter now inserted as well as nasogastric tube as discussed above.
--- NOTE | 2016-11-10 17:29 | CP.PCM.PN ---
Subjective - Date & Time of Evaluation Date of Evaluation: 11/10/16 Time of Evaluation: 07:00 - Subjective Subjective: 76 year old female with a history of HTN, bilateral cystic ovarian masses, presenting to the hospital with lower extremity weakness, currently undergoing treatment for parotitis, found to have a large brain lesion. parotitis improving may need ENT drainage cont IV antibiotics Objective - Vital Signs/Intake and Output Vital Signs (last 24 hours): Temp Pulse Resp BP Pulse Ox 98.5 F 106 H 19 139/64 97 11/10/16 16:00 11/10/16 16:01 11/10/16 16:01 11/10/16 16:01 11/10/16 16:01 Intake and Output: 11/10/16 11/10/16 06:59 18:59 Intake Total 780 800 Output Total 415 355 Balance 365 445 - Medications Medications: Current Medications Enalaprilat (Vasotec) 1.25 mg IV Q6 [facility] Last Admin: 11/10/16 11:29 Dose: 1.25 mg Famotidine (Pepcid) 20 mg IVP DAILY [facility] Last Admin: 11/10/16 09:06 Dose: 20 mg Hydralazine HCl (Apresoline) 10 mg IVP Q6H [facility] Last Admin: 11/10/16 13:03 Dose: 10 mg Clindamycin Phosphate 600 mg/ (Sodium Chloride) 54 mls @ 100 mls/hr IVPB Q6H [facility] Last Admin: 11/10/16 16:23 Dose: 100 mls/hr Ceftriaxone Sodium 2 gm/ (Sodium Chloride) 100 mls @ 100 mls/hr IVPB BID [facility] Last Admin: 11/10/16 17:25 Dose: 100 mls/hr Ketorolac Tromethamine (Toradol) 30 mg IVP Q6 PRN PRN Reason: Pain, Mild (1-3) Last Admin: 11/09/16 10:05 Dose: 30 mg - Labs Labs: 11/10/16 06:27 11/10/16 06:27 PT 14.6 SECONDS (9.7-12.2) H 11/07/16 10:06 INR 1.3 11/07/16 10:06 APTT 29 SECONDS (21-34) 11/07/16 10:06 - Constitutional Appears: Confused, Cachectic, Chronically Ill - Head Exam Head Exam: NORMOCEPHALIC - Eye Exam Eye Exam: PERRL. absent: Scleral icterus - ENT Exam ENT Exam: Mucous Membranes Dry, Normal External Ear Exam - Neck Exam Neck Exam: absent: Lymphadenopathy - Respiratory Exam Respiratory Exam: Decreased Breath Sounds - Cardiovascular Exam Cardiovascular Exam: REGULAR RHYTHM - GI/Abdominal Exam GI & Abdominal Exam: Distended, Soft - Rectal Exam Rectal Exam: Deferred - Exam Exam: NORMAL INSPECTION - Extremities Exam Extremities Exam: absent: Pedal Edema Assessment and Plan (1) Parotiditis Status: Acute - Assessment and Plan (Free Text) Assessment: cont iv rx may need ent drainage neurosurg work up in progress for meningioma
--- NOTE | 2016-11-10 19:04 | CP.PCM.PN ---
Subjective - Date & Time of Evaluation Date of Evaluation: 11/10/16 Time of Evaluation: 12:20 - Subjective Subjective: clinically same iv abx in progress neurosurg, heme/onc, id, sharepoint administrator md following Objective - Vital Signs/Intake and Output Vital Signs (last 24 hours): Temp Pulse Resp BP Pulse Ox 98.5 F 99 H 20 125/70 94 L 11/10/16 16:00 11/10/16 18:01 11/10/16 18:01 11/10/16 18:17 11/10/16 18:01 Intake and Output: 11/10/16 11/11/16 18:59 06:59 Intake Total 840 Output Total 385 Balance 455 - Medications Medications: Current Medications Enalaprilat (Vasotec) 1.25 mg IV Q6 SUJEY Last Admin: 11/10/16 18:17 Dose: 1.25 mg Famotidine (Pepcid) 20 mg IVP DAILY [facility] Last Admin: 11/10/16 09:06 Dose: 20 mg Hydralazine HCl (Apresoline) 10 mg IVP Q6H SUJEY Last Admin: 11/10/16 18:16 Dose: Not Given Clindamycin Phosphate 600 mg/ (Sodium Chloride) 54 mls @ 100 mls/hr IVPB Q6H SUJEY Last Admin: 11/10/16 16:23 Dose: 100 mls/hr Ceftriaxone Sodium (Rocephin Iv 1 Gm Duplex) 50 mls @ 50 mls/30 min IVPB Q12H SUJEY Ketorolac Tromethamine (Toradol) 30 mg IVP Q6 PRN PRN Reason: Pain, Mild (1-3) Last Admin: 11/09/16 10:05 Dose: 30 mg - Labs Labs: 11/10/16 06:27 11/10/16 06:27 PT 14.6 SECONDS (9.7-12.2) H 11/07/16 10:06 INR 1.3 11/07/16 10:06 APTT 29 SECONDS (21-34) 11/07/16 10:06 - Constitutional Appears: Well - Head Exam Head Exam: ATRAUMATIC, NORMAL INSPECTION, NORMOCEPHALIC - Eye Exam Eye Exam: EOMI, Normal appearance, PERRL Pupil Exam: NORMAL ACCOMODATION, PERRL - ENT Exam ENT Exam: Mucous Membranes Moist, Normal Exam - Neck Exam Neck Exam: Full ROM, Normal Inspection. absent: Lymphadenopathy - Respiratory Exam Respiratory Exam: Decreased Breath Sounds - Cardiovascular Exam Cardiovascular Exam: REGULAR RHYTHM, +S1, +S2 - GI/Abdominal Exam GI & Abdominal Exam: Soft, Diminished Bowel Sounds - Rectal Exam Rectal Exam: Deferred - Neurological Exam Neurological Exam: Altered Assessment and Plan (1) Altered mental status Status: Acute (2) Parotiditis Status: Acute (3) Respiratory distress Status: Acute (4) Abdominal pain Status: Acute (5) Anemia Status: Acute (6) Constipation Status: Acute (7) Hyperglycemia Status: Acute (8) Hypokalemia Status: Acute (9) Ovarian cystic mass Status: Acute (10) Prophylactic measure Status: Acute (11) UTI (urinary tract infection) Status: Acute - Assessment and Plan (Free Text) Plan: cont iv abx meds revieewed maría as ordered neurosurg x meningioma w/up heme/onc dr jeff id dr vazquez pulm f/u labs
--- NOTE | 2016-11-10 19:26 | CARD ---
APPROVED REPORT EKG Measurement Heart [id number] <Conclusion> Sinus tachycardia Abnormal ECG
[2016-11-11] MEDS: Enalaprilat 2.5 MG/2 ML IV SCH ×4 (06:10→17:42)
[2016-11-11] MEDS: cefTRIAXone IV 1 gm in Dextros 50 ML IVPB SCH ×2 (06:10→17:43)
[2016-11-11 06:21] LABS: BASO # 0.1 K/uL (0.0-0.2); BASO % 0.7 % (0.0-2.0); EOS # 0.7 K/uL (0.0-0.7); HEMATOCRIT 30.8 % (34.0-47.0); LYMPH # 1.6 K/uL (1.0-4.3); LYMPH % 12.9 % (20.0-40.0); MEAN CELL VOLUME 61.3 fL (81.0-99.0); MEAN CORPUSCULAR HEMOGLOBIN 18.2 pg (27.0-31.0); MEAN CORPUSCULAR HGB CONC 29.7 g/dL (33.0-37.0); MEAN PLATELET VOLUME 9.3 fL (7.2-11.7); MONO # 0.7 K/uL (0.0-0.8); MONO % 5.9 % (0.0-10.0); RED CELL DISTRIBUTION WIDTH 22.9 % (11.5-14.5); WHITE BLOOD COUNT 12.3 K/uL (4.8-10.8)
[2016-11-11 06:45] LABS: ALKALINE PHOSPHATASE 89 U/L (38-126); ALT/SGPT 31 U/L (9-52); AST/SGOT 27 U/L (14-36); BILIRUBIN,TOTAL 0.3 mg/dL (0.2-1.3); BLOOD UREA NITROGEN 21 mg/dL (7-17); CALCIUM 9.2 mg/dl (8.6-10.4); CARBON DIOXIDE 29 mmol/L (22-30); CHLORIDE 112 mmol/L (98-107); GFR AFRICAN-AMERICAN > 60; GLUCOSE,RANDOM 182 mg/dL (65-105); MAGNESIUM 2.1 mg/dL (1.6-2.3); PHOSPHOROUS 3.2 mg/dL (2.5-4.5); SODIUM 147 mmol/L (132-148); TOTAL PROTEIN 5.4 g/dL (6.3-8.3)
[2016-11-11 06:48] LABS: ALB/GLOB RATIO 0.9 (1.0-2.1)
[2016-11-11] MEDS ORDERED: Docusate-Senna 50 mg-8.6 mg Tab PO SCH (10:26)
[2016-11-11 10:47] LABS: ABG ALLEN TEST PO; ARTERIAL BLOOD HGB O2 SAT 96.6 % (95.0-98.0); CARBOXYHEMOGLOBIN 1.1 % (0.5-1.5); DRAW SITE RRA; METHEMOGLOBIN 1.3 % (0.0-3.0)
--- NOTE | 2016-11-11 11:23 | CP.CCUPN ---
CCU Subjective - Physician Review Subjective (Free Text): Patient was seen and examined at bedside in the morning. Patient followed did not respond to review of systems. Patient is lethargic. 11/11/16 11:21 CCU Objective - Vital Signs / Intake & Output Vital Signs (Last 4 hours): Vital Signs Temp Pulse Resp BP Pulse Ox 11/11/16 11:06 122/84 11/11/16 09:00 110 H 17 137/80 100 11/11/16 08:00 98.6 F 102 H 18 135/82 100 Intake and Output (Last 8hrs): Intake & Output 11/10/16 11/11/16 11/11/16 22:59 06:59 14:59 Intake Total 470 670 80 Output Total 280 240 60 Balance 190 430 20 Intake: Intake, IV Amount 50 150 Left Forearm 50 Right PICC 150 Oral 100 200 Tube Feeding 320 320 80 Output: Urine 280 240 60 Urethral (Snow) 280 240 60 - Physical Exam Head: Positive for: Atraumatic, Tenderness (right parotiditis). Negative for: Normocephalic Mouth: Positive for: Moist Mucous Membranes Respiratory/Chest: Positive for: Other (chest congestion). Negative for: Wheezes, Rales, Rhonchi Cardiovascular: Positive for: Murmurs, Normal S1, S2. Negative for: Tachycardic , Bradycardic Abdomen: Positive for: Normal Bowel Sounds. Negative for: Tenderness, Distention Upper Extremity: Positive for: Normal Inspection, Other (right sided weakness) Lower Extremity: Positive for: Edema, Swelling. Negative for: Normal Inspection , NORMAL PULSES (diminished) Skin: Positive for: Warm, Dry, Normal Color Psychiatric: Positive for: Alert, Lethargic - Medications Active Medications: Active Medications Generic Name Dose Route Start Last Admin Trade Name Freq PRN Reason Stop Dose Admin Enalaprilat 1.25 mg 11/08/16 06:00 11/11/16 11:06 Vasotec IV 1.25 mg Q6 [facility] Administration Famotidine 20 mg 11/08/16 10:30 11/11/16 10:50 Pepcid IVP 20 mg DAILY [facility] Administration Hydralazine HCl 10 mg 11/08/16 00:45 11/11/16 06:00 Apresoline IVP Not Given Q6H SUJEY Clindamycin Phosphate 600 mg/ 54 mls @ 100 mls/hr 11/07/16 17:00 11/11/16 11: 03 Sodium Chloride IVPB 100 mls/hr Q6H [facility] Administration Ceftriaxone Sodium 50 mls @ 50 mls/30 min 11/11/16 06:00 11/11/16 06:10 Rocephin Iv 1 Gm Duplex IVPB 50 mls/30 min Q12H [facility] Administration Ketorolac Tromethamine 30 mg 11/09/16 09:16 11/09/16 10:05 Toradol IVP 30 mg Q6 PRN Administration Pain, Mild (1-3) Senna/Docusate Sodium 1 tab 11/11/16 10:26 Senokot S 50 Mg-8.6 Mg PO TID SUJEY Senna/Docusate Sodium 1 tab 11/11/16 11:20 Senokot S 50 Mg-8.6 Mg PO TID SUJEY - Patient Studies Lab Studies: Microbiology Studies 11/07/16 17:00 Blood Culture - Preliminary Blood NO GROWTH AFTER 3 DAYS 11/07/16 17:00 Blood Culture - Preliminary Blood NO GROWTH AFTER 3 DAYS Lab Studies 11/11/16 11/11/16 11/11/16 Range/Units 10:44 06:10 06:10 WBC 12.3 H (4.8-10.8) K/uL RBC 5.02 (3.80-5.20) Mil/uL Hgb 9.1 L (11.0-16.0) g/dL Hct 30.8 L (34.0-47.0) % MCV 61.3 L (81.0-99.0) fL MCH 18.2 L (27.0-31.0) pg MCHC 29.7 L (33.0-37.0) g/dL RDW 22.9 H (11.5-14.5) % Plt Count 367 (130-400) K/uL MPV 9.3 (7.2-11.7) fL Neut % (Auto) 74.5 (50.0-75.0) % Lymph % (Auto) 12.9 L (20.0-40.0) % [place] % (Auto) 5.9 (0.0-10.0) % Eos % (Auto) 6.0 H (0.0-4.0) % Baso % (Auto) 0.7 (0.0-2.0) % Neut # 9.1 H (1.8-7.0) K/uL Lymph # 1.6 (1.0-4.3) K/uL [place] # 0.7 (0.0-0.8) K/uL Eos # 0.7 (0.0-0.7) K/uL Baso # 0.1 (0.0-0.2) K/uL Puncture Site Rra pCO2 41 (35-45) mm/Hg pO2 163 H (80-100) mm/Hg HCO3 29.9 H (21-28) mmol/L ABG pH 7.48 H (7.35-7.45) ABG Total CO2 31.8 H (22-28) mmol/L ABG O2 Saturation 99.0 H (95-98) % ABG Base Excess 6.4 H (-2.0-3.0) mmol/L ABG Hemoglobin 9.2 L (11.7-17.4) g/dL ABG Carboxyhemoglobin 1.1 (0.5-1.5) % POC ABG HHb (Measured) 1.0 (0.0-5.0) % ABG Methemoglobin 1.3 (0.0-3.0) % [place] Test Po A-a O2 Difference 14.0 mm/Hg Respiratory Index 0.1 Hgb O2 Saturation 96.6 (95.0-98.0) % Liter Flow 3.0 FiO2 32.0 % Sodium 147 (132-148) mmol/L Potassium 4.0 (3.6-5.2) mmol/L Chloride 112 H (98-107) mmol/L Carbon Dioxide 29 (22-30) mmol/L Anion Gap 10 (10-20) BUN 21 H (7-17) mg/dL Creatinine 0.6 L (0.7-1.2) MG/DL Est GFR ( Amer) > 60 Est GFR (Non-Af Amer) > 60 POC Glucose (mg/dL) (65-110) mg/dL Random Glucose 182 H (65-105) mg/dL Calcium 9.2 (8.6-10.4) mg/dl Phosphorus 3.2 (2.5-4.5) mg/dL Magnesium 2.1 (1.6-2.3) mg/dL Total Bilirubin 0.3 (0.2-1.3) mg/dL AST 27 (14-36) U/L ALT 31 (9-52) U/L Alkaline Phosphatase 89 (38-126) U/L Total Protein 5.4 L (6.3-8.3) g/dL Albumin 2.5 L (3.5-5.0) g/dL Globulin 2.9 (2.2-3.9) gm/dL Albumin/Globulin Ratio 0.9 L (1.0-2.1) /12/19 Range/Units 18:02 WBC (4.8-10.8) K/uL RBC (3.80-5.20) Mil/uL Hgb (11.0-16.0) g/dL Hct (34.0-47.0) % MCV (81.0-99.0) fL MCH (27.0-31.0) pg MCHC (33.0-37.0) g/dL RDW (11.5-14.5) % Plt Count (130-400) K/uL MPV (7.2-11.7) fL Neut % (Auto) (50.0-75.0) % Lymph % (Auto) (20.0-40.0) % [place] % (Auto) (0.0-10.0) % Eos % (Auto) (0.0-4.0) % Baso % (Auto) (0.0-2.0) % Neut # (1.8-7.0) K/uL Lymph # (1.0-4.3) K/uL [place] # (0.0-0.8) K/uL Eos # (0.0-0.7) K/uL Baso # (0.0-0.2) K/uL Puncture Site pCO2 (35-45) mm/Hg pO2 (80-100) mm/Hg HCO3 (21-28) mmol/L ABG pH (7.35-7.45) ABG Total CO2 (22-28) mmol/L ABG O2 Saturation (95-98) % ABG Base Excess (-2.0-3.0) mmol/L ABG Hemoglobin (11.7-17.4) g/dL ABG Carboxyhemoglobin (0.5-1.5) % POC ABG HHb (Measured) (0.0-5.0) % ABG Methemoglobin (0.0-3.0) % [place] Test A-a O2 Difference mm/Hg Respiratory Index Hgb O2 Saturation (95.0-98.0) % Liter Flow FiO2 % Sodium (132-148) mmol/L Potassium (3.6-5.2) mmol/L Chloride (98-107) mmol/L Carbon Dioxide (22-30) mmol/L Anion Gap (10-20) BUN (7-17) mg/dL Creatinine (0.7-1.2) MG/DL Est GFR ( Amer) Est GFR (Non-Af Amer) POC Glucose (mg/dL) 213 H (65-110) mg/dL Random Glucose (65-105) mg/dL Calcium (8.6-10.4) mg/dl Phosphorus (2.5-4.5) mg/dL Magnesium (1.6-2.3) mg/dL Total Bilirubin (0.2-1.3) mg/dL AST (14-36) U/L ALT (9-52) U/L Alkaline Phosphatase (38-126) U/L Total Protein (6.3-8.3) g/dL Albumin (3.5-5.0) g/dL Globulin (2.2-3.9) gm/dL Albumin/Globulin Ratio (1.0-2.1) Laboratory Results - last 24 hr 11/10/16 11/11/16 11/11/16 18:02 06:10 06:10 WBC 12.3 H RBC 5.02 Hgb 9.1 L Hct 30.8 L MCV 61.3 L MCH 18.2 L MCHC 29.7 L RDW 22.9 H Plt Count 367 MPV 9.3 Neut % (Auto) 74.5 Lymph % (Auto) 12.9 L [place] % (Auto) 5.9 Eos % (Auto) 6.0 H Baso % (Auto) 0.7 Neut # 9.1 H Lymph # 1.6 [place] # 0.7 Eos # 0.7 Baso # 0.1 Puncture Site pCO2 pO2 HCO3 ABG pH ABG Total CO2 ABG O2 Saturation ABG Base Excess ABG Hemoglobin ABG Carboxyhemoglobin POC ABG HHb (Measured) ABG Methemoglobin [place] Test A-a O2 Difference Respiratory Index Hgb O2 Saturation Liter Flow FiO2 Sodium 147 Potassium 4.0 Chloride 112 H Carbon Dioxide 29 Anion Gap 10 BUN 21 H Creatinine 0.6 L Est GFR ( Amer) > 60 Est GFR (Non-Af Amer) > 60 POC Glucose (mg/dL) 213 H Random Glucose 182 H Calcium 9.2 Phosphorus 3.2 Magnesium 2.1 Total Bilirubin 0.3 AST 27 ALT 31 Alkaline Phosphatase 89 Total Protein 5.4 L Albumin 2.5 L Globulin 2.9 Albumin/Globulin Ratio 0.9 L 11/11/16 10:44 WBC RBC Hgb Hct MCV MCH MCHC RDW Plt Count MPV Neut % (Auto) Lymph % (Auto) [place] % (Auto) Eos % (Auto) Baso % (Auto) Neut # Lymph # [place] # Eos # Baso # Puncture Site Rra pCO2 41 pO2 163 H HCO3 29.9 H ABG pH 7.48 H ABG Total CO2 31.8 H ABG O2 Saturation 99.0 H ABG Base Excess 6.4 H ABG Hemoglobin 9.2 L ABG Carboxyhemoglobin 1.1 POC ABG HHb (Measured) 1.0 ABG Methemoglobin 1.3 [place] Test Po A-a O2 Difference 14.0 Respiratory Index 0.1 Hgb O2 Saturation 96.6 Liter Flow 3.0 FiO2 32.0 Sodium Potassium Chloride Carbon Dioxide Anion Gap BUN Creatinine Est GFR ( Amer) Est GFR (Non-Af Amer) POC Glucose (mg/dL) Random Glucose Calcium Phosphorus Magnesium Total Bilirubin AST ALT Alkaline Phosphatase Total Protein Albumin Globulin Albumin/Globulin Ratio Fingerstick Blood Sugar Results: 161 Review of Systems - Review of Systems Systems not reviewed;Unavailable: Uncooperative (lethargic, does not respond to questions) Assessment/Plan (1) Parotiditis Assessment and plan: 73yo PMHx HTN, arthritis, constipation, UTI's, internal hemorrhoids, right and left ovarian cystic masses (Ovarian CA workup not complete). p/w parotitis with airway compromise. Patient has left frontal mass. Patient is still lethargic. Neuro: - Alert, lethargic - Left Brain Mass - Neurosurgery consulted: Dr. Gautam, help appreciated Intervention after parotiditis improves - Head CT: 6.5 X 4.3 cm hyperattenuated left frontal mass with peripheral calcification and slight enhancement. mass effect upon left lateral ventricle and effacement of left sided cerebral sulci. 6mm midline shift from left to right consistent with subfalcine herniation. - Brain MRI w/o contrast: 6.5 cm enhancing lesion at left frontal region, possibly an atypical meningioma, potentially malignant Pulm: Breathing with audible airway collapse sound secondary to swelling from parotiditis, not labored, oxygenating well with nasal cannula oxygen. We will monitor for any degradation and airway patency. - CXR: diffuse increased interstitial lung marking, biapical pleural thickening with upper lobe granulomatous changes; right hilar prominence. patchy increased markings at left lung base with possible trace pleural effusion. HEENT: - Parotiditis - Continue Clindamycin and Rocephin - ENT consulted: Dr. Simeon, help appreciated - Soft tissue Neck CT: asymmetric swelling, induration involving right parotid gland, underlying inflammation and/or infection; mild asymmetric prominence of left tonsillar/peritonsillar region with narrowing of airway at that level and extending inferiorly; mild thickening at level of tongue base; shotty cervical chain lymph nodes. - Swallow eval: failed - Laryngoscopy: no masses or lesions CV: Hemodynamically stable. - Continue Enalaprilat 1.5 mg IV Q6 hours, Hydralazine 10mg IV Q6H - Troponinsx1- negative - EKG: sinus tachycardia at 112bpm; LVH - PICC line placed today Hem: Leukocytosis from sepsis - Heme/Onc consulted for left frontal mass: Dr. Strong, help appreciated Renal: No acute issues, urine output within normal limits, will monitor. - Hypokalemia: KCl given Endo: No acute issues GI: Nothing by mouth, - Tube feeding: Jevity. ID: Sepsis secondary to parotiditis, - Continue Rocephin and Clindamycin. - ID consulted: Dr. Rubi, help appreciated. Prophylaxis: - DVT- discontinued lovenox; intracranial mass - GI- not currently indicated - Snow for strict I/O's during acute illness - Swallow Eval: failed - OT - Palliative care consulted Code status - full code Current Visit: Yes Status: Acute
[2016-11-11] MEDS: Docusate-Senna 50 mg-8.6 mg Tab PO SCH ×3 (11:40→18:02)
--- NOTE | 2016-11-11 16:30 | CP.PCM.PN ---
Subjective - Date & Time of Evaluation Date of Evaluation: 11/11/16 Time of Evaluation: 12:00 - Subjective Subjective: clinically same Objective - Vital Signs/Intake and Output Vital Signs (last 24 hours): Temp Pulse Resp BP Pulse Ox 98.5 F 113 H 19 127/85 100 11/11/16 12:00 11/11/16 12:00 11/11/16 12:00 11/11/16 12:00 11/11/16 12:00 Intake and Output: 11/11/16 11/11/16 06:59 18:59 Intake Total 930 430 Output Total 385 205 Balance 545 225 - Medications Medications: Current Medications Enalaprilat (Vasotec) 1.25 mg IV Q6 [facility] Last Admin: 11/11/16 11:06 Dose: 1.25 mg Famotidine (Pepcid) 20 mg IVP DAILY [facility] Last Admin: 11/11/16 10:50 Dose: 20 mg Hydralazine HCl (Apresoline) 10 mg IVP Q6H [facility] Last Admin: 11/11/16 12:19 Dose: Not Given Clindamycin Phosphate 600 mg/ (Sodium Chloride) 54 mls @ 100 mls/hr IVPB Q6H [facility] Last Admin: 11/11/16 11:03 Dose: 100 mls/hr Ceftriaxone Sodium (Rocephin Iv 1 Gm Duplex) 50 mls @ 50 mls/30 min IVPB Q12H [facility] Last Admin: 11/11/16 06:10 Dose: 50 mls/30 min Ketorolac Tromethamine (Toradol) 30 mg IVP Q6 PRN PRN Reason: Pain, Mild (1-3) Last Admin: 11/09/16 10:05 Dose: 30 mg Senna/Docusate Sodium (Senokot S 50 Mg-8.6 Mg) 1 tab PO TID [facility] Last Admin: 11/11/16 14:43 Dose: 1 tab - Labs Labs: 11/11/16 06:10 11/11/16 06:10 PT 14.6 SECONDS (9.7-12.2) H 11/07/16 10:06 INR 1.3 11/07/16 10:06 APTT 29 SECONDS (21-34) 11/07/16 10:06 - Constitutional Appears: Well - Head Exam Head Exam: ATRAUMATIC, NORMAL INSPECTION, NORMOCEPHALIC - Eye Exam Eye Exam: EOMI, Normal appearance, PERRL Pupil Exam: NORMAL ACCOMODATION, PERRL - ENT Exam ENT Exam: Mucous Membranes Moist, Normal Exam - Neck Exam Neck Exam: Full ROM, Normal Inspection. absent: Lymphadenopathy - Respiratory Exam Respiratory Exam: Decreased Breath Sounds - Cardiovascular Exam Cardiovascular Exam: REGULAR RHYTHM, +S1, +S2 - GI/Abdominal Exam GI & Abdominal Exam: Soft, Diminished Bowel Sounds - Rectal Exam Rectal Exam: Deferred - Neurological Exam Neurological Exam: Alert, Altered Assessment and Plan (1) Altered mental status Status: Acute (2) Parotiditis Status: Acute (3) Respiratory distress Status: Acute (4) Abdominal pain Status: Acute (5) Anemia Status: Acute (6) Constipation Status: Acute (7) Hyperglycemia Status: Acute (8) Hypokalemia Status: Acute (9) Ovarian cystic mass Status: Acute (10) Prophylactic measure Status: Acute (11) UTI (urinary tract infection) Status: Acute - Assessment and Plan (Free Text) Plan: maría same iv abx f/u with neurosurg dr vazquez heme/onc f/u labs f/u imaging
--- NOTE | 2016-11-11 17:21 | CP.PCM.PN ---
Subjective - Date & Time of Evaluation Date of Evaluation: 11/11/16 Time of Evaluation: 10:00 - Subjective Subjective: arousable no fever parotid swelling persists await ent eval cont iv rx Objective - Vital Signs/Intake and Output Vital Signs (last 24 hours): Temp Pulse Resp BP Pulse Ox 98.5 F 113 H 19 127/85 100 11/11/16 12:00 11/11/16 12:00 11/11/16 12:00 11/11/16 12:00 11/11/16 12:00 Intake and Output: 11/11/16 11/11/16 06:59 18:59 Intake Total 930 430 Output Total 385 205 Balance 545 225 - Medications Medications: Current Medications Enalaprilat (Vasotec) 1.25 mg IV Q6 [facility] Last Admin: 11/11/16 11:06 Dose: 1.25 mg Famotidine (Pepcid) 20 mg IVP DAILY [facility] Last Admin: 11/11/16 10:50 Dose: 20 mg Hydralazine HCl (Apresoline) 10 mg IVP Q6H [facility] Last Admin: 11/11/16 12:19 Dose: Not Given Clindamycin Phosphate 600 mg/ (Sodium Chloride) 54 mls @ 100 mls/hr IVPB Q6H [facility] Last Admin: 11/11/16 16:58 Dose: 100 mls/hr Ceftriaxone Sodium (Rocephin Iv 1 Gm Duplex) 50 mls @ 50 mls/30 min IVPB Q12H [facility] Last Admin: 11/11/16 06:10 Dose: 50 mls/30 min Ketorolac Tromethamine (Toradol) 30 mg IVP Q6 PRN PRN Reason: Pain, Mild (1-3) Last Admin: 11/09/16 10:05 Dose: 30 mg Senna/Docusate Sodium (Senokot S 50 Mg-8.6 Mg) 1 tab PO TID [facility] Last Admin: 11/11/16 14:43 Dose: 1 tab - Labs Labs: 11/11/16 06:10 11/11/16 06:10 PT 14.6 SECONDS (9.7-12.2) H 11/07/16 10:06 INR 1.3 11/07/16 10:06 APTT 29 SECONDS (21-34) 11/07/16 10:06 - Constitutional Appears: Non-toxic, Cachectic, Chronically Ill - Head Exam Head Exam: NORMOCEPHALIC Additional comments: + parotid swelling - Eye Exam Eye Exam: PERRL. absent: Scleral icterus - ENT Exam ENT Exam: Mucous Membranes Dry, Normal External Ear Exam - Neck Exam Neck Exam: absent: Lymphadenopathy - Respiratory Exam Respiratory Exam: Decreased Breath Sounds, Rhonchi - Cardiovascular Exam Cardiovascular Exam: REGULAR RHYTHM, +S1, +S2 - GI/Abdominal Exam GI & Abdominal Exam: Distended, Soft. absent: Tenderness - Rectal Exam Rectal Exam: Deferred - Exam Exam: NORMAL INSPECTION - Extremities Exam Extremities Exam: absent: Calf Tenderness, Pedal Edema - Back Exam Back Exam: absent: CVA tenderness (L), CVA tenderness (R) - Neurological Exam Neurological Exam: Alert, Awake Neuro motor strength exam: Left Upper Extremity: 4, Right Upper Extremity: 2/1, Left Lower Extremity: 4, Right Lower Extremity: 2/1 - Psychiatric Exam Psychiatric exam: Depressed - Skin Skin Exam: Dry, Intact Assessment and Plan (1) Parotiditis Status: Acute - Assessment and Plan (Free Text) Assessment: meningioma hx cva parotitis sepsis ams fever
[2016-11-12] MEDS: Enalaprilat 2.5 MG/2 ML IV SCH ×3 (01:38→17:58)
[2016-11-12] MEDS: cefTRIAXone IV 1 gm in Dextros 50 ML IVPB SCH ×2 (05:13→17:59)
[2016-11-12] MEDS: Docusate-Senna 50 mg-8.6 mg Tab PO SCH ×3 (10:00→17:52)
--- NOTE | 2016-11-12 10:01 | CP.PCM.PN ---
Subjective - Date & Time of Evaluation Date of Evaluation: 11/12/16 Time of Evaluation: 09:00 - Subjective Subjective: NAD afebrile clinically same Objective - Vital Signs/Intake and Output Vital Signs (last 24 hours): Temp Pulse Resp BP Pulse Ox 98.3 F 116 H 24 123/80 99 11/12/16 07:11 11/12/16 07:11 11/12/16 07:11 11/12/16 07:11 11/12/16 07:11 - Medications Medications: Current Medications Enalaprilat (Vasotec) 1.25 mg IV Q6 [facility] Last Admin: 11/12/16 01:38 Dose: 1.25 mg Famotidine (Pepcid) 20 mg IVP DAILY [facility] Last Admin: 11/12/16 10:00 Dose: 20 mg Hydralazine HCl (Apresoline) 10 mg IVP Q6H [facility] Last Admin: 11/12/16 01:47 Dose: 10 mg Clindamycin Phosphate 600 mg/ (Sodium Chloride) 54 mls @ 100 mls/hr IVPB Q6H [facility] Last Admin: 11/12/16 04:09 Dose: 100 mls/hr Ceftriaxone Sodium (Rocephin Iv 1 Gm Duplex) 50 mls @ 50 mls/30 min IVPB Q12H [facility] Last Admin: 11/12/16 05:13 Dose: 50 mls/30 min Ketorolac Tromethamine (Toradol) 30 mg IVP Q6 PRN PRN Reason: Pain, Mild (1-3) Last Admin: 11/09/16 10:05 Dose: 30 mg Senna/Docusate Sodium (Senokot S 50 Mg-8.6 Mg) 1 tab PO TID [facility] Last Admin: 11/12/16 10:00 Dose: 1 tab - Labs Labs: 11/11/16 06:10 11/11/16 06:10 PT 14.6 SECONDS (9.7-12.2) H 11/07/16 10:06 INR 1.3 11/07/16 10:06 APTT 29 SECONDS (21-34) 11/07/16 10:06 - Constitutional Appears: Well - Head Exam Head Exam: ATRAUMATIC, NORMAL INSPECTION, NORMOCEPHALIC - Eye Exam Eye Exam: EOMI, Normal appearance, PERRL Pupil Exam: NORMAL ACCOMODATION, PERRL - ENT Exam ENT Exam: Mucous Membranes Moist, Normal Exam - Neck Exam Neck Exam: Full ROM, Normal Inspection. absent: Lymphadenopathy - Respiratory Exam Respiratory Exam: Decreased Breath Sounds - Cardiovascular Exam Cardiovascular Exam: REGULAR RHYTHM, +S1, +S2 - GI/Abdominal Exam GI & Abdominal Exam: Soft, Diminished Bowel Sounds - Rectal Exam Rectal Exam: Deferred - Neurological Exam Neurological Exam: Alert, Awake Assessment and Plan (1) Altered mental status Status: Acute (2) Parotiditis Status: Acute (3) Respiratory distress Status: Acute (4) Abdominal pain Status: Acute (5) Anemia Status: Acute (6) Constipation Status: Acute (7) Hyperglycemia Status: Acute (8) Hypokalemia Status: Acute (9) Ovarian cystic mass Status: Acute (10) Prophylactic measure Status: Acute (11) UTI (urinary tract infection) Status: Acute - Assessment and Plan (Free Text) Plan: meds reviewed maría same iv abx other meds as ordered f/u with consultants discussed plan of care with pt family
[2016-11-12 11:03] LABS: CHLORIDE 110 mmol/L (98-107); POTASSIUM 4.2 mmol/L (3.6-5.2); SODIUM 147 mmol/L (132-148)
[2016-11-12 11:05] LABS: BASO # 0.1 K/uL (0.0-0.2); BASO % 0.7 % (0.0-2.0); BILIRUBIN,TOTAL 0.4 mg/dL (0.2-1.3); CARBON DIOXIDE 32 mmol/L (22-30); EOS # 0.6 K/uL (0.0-0.7); EOS % 5.2 % (0.0-4.0); GFR AFRICAN-AMERICAN > 60; HEMATOCRIT 29.5 % (34.0-47.0); LYMPH # 1.2 K/uL (1.0-4.3); LYMPH % 10.4 % (20.0-40.0); MEAN CELL VOLUME 61.8 fL (81.0-99.0); MEAN CORPUSCULAR HGB CONC 29.2 g/dL (33.0-37.0); MEAN PLATELET VOLUME 9.1 fL (7.2-11.7); MONO # 0.9 K/uL (0.0-0.8); MONO % 7.3 % (0.0-10.0); RED CELL DISTRIBUTION WIDTH 22.6 % (11.5-14.5); WHITE BLOOD COUNT 11.7 K/uL (4.8-10.8)
[2016-11-12 11:06] LABS: ALB/GLOB RATIO 0.8 (1.0-2.1); ALKALINE PHOSPHATASE 92 U/L (38-126); ALT/SGPT 32 U/L (9-52); AST/SGOT 27 U/L (14-36); BLOOD UREA NITROGEN 19 mg/dL (7-17); CALCIUM 9.2 mg/dl (8.6-10.4); GLUCOSE,RANDOM 214 mg/dL (65-105); TOTAL PROTEIN 5.4 g/dL (6.3-8.3)
--- NOTE | 2016-11-12 11:19 | CT ---
PROCEDURE: CT HEAD WITHOUT CONTRAST. HISTORY: lethargy COMPARISON: Head CT 11/07/2016 11:28 a.m.. MRI 11/08/2016. TECHNIQUE: Axial computed tomography images were obtained through the head/brain without intravenous contrast. Radiation dose: Total exam DLP = 860 mGy-cm. This CT exam was performed using one or more of the following dose reduction techniques: Automated exposure control, adjustment of the mA and/or kV according to patient size, and/or use of iterative reconstruction technique. FINDINGS: HEMORRHAGE: No interval intracranial hemorrhage is identified. BRAIN: Large mass is again identified extra-axial at the left frontal region exerting significant mass effect at the left cerebral hemisphere anteriorly where numerous sulci are effaced and the left lateral ventricle anterior horn is effaced also. Limited rightward midline shift is again evident which is unchanged. Bilateral basal ganglia calcifications are again evident. The the suprasellar cistern is partially effaced with remaining basilar cisterns unremarkable. Posterior fossa contents are unremarkable including the brainstem. Limited diffuse cerebral atrophy is again identified as well as chronic microangiopathy. VENTRICLES: As above CALVARIUM: Unremarkable. PARANASAL SINUSES: Mild multifocal ethmoid sinusitis as well as bilateral maxillary sinus disease again evident. MASTOID AIR CELLS: Left mastoiditis identified. OTHER FINDINGS: None. IMPRESSION: Stable 7 cm mass in the left frontal region exerting local and somewhat regional mass effect with a limited rightward midline shift stable in the interval. No hydrocephalus although the left frontal horn is significantly effaced as well as numerous left frontal sulci. No intracranial hemorrhage grossly evident.
[2016-11-12] MEDS: Albuterol-Ipratrop 3 mg / 0.5 (3 ml) UD INH SCH ×2 (13:24→19:24)
--- NOTE | 2016-11-12 17:24 | CP.PCM.PN ---
Subjective - Date & Time of Evaluation Date of Evaluation: 11/12/16 Time of Evaluation: 07:00 - Subjective Subjective: no fever + parotid swelling IV rx in progress Objective - Vital Signs/Intake and Output Vital Signs (last 24 hours): Temp Pulse Resp BP Pulse Ox 98 F 104 H 22 149/76 98 11/12/16 16:00 11/12/16 16:00 11/12/16 16:00 11/12/16 16:00 11/12/16 16:00 Intake and Output: 11/12/16 11/12/16 06:59 18:59 Intake Total 184 Output Total 350 Balance -166 - Medications Medications: Current Medications Albuterol/Ipratropium (Duoneb 3 Mg/0.5 Mg (3 Ml) Ud) 3 ml INH RQ6 [facility] Dexamethasone (Decadron Inj) 8 mg IV Q8H [facility] Enalaprilat (Vasotec) 1.25 mg IV Q6 [facility] Last Admin: 11/12/16 13:13 Dose: 1.25 mg Famotidine (Pepcid) 20 mg IVP DAILY [facility] Last Admin: 11/12/16 10:00 Dose: 20 mg Hydralazine HCl (Apresoline) 10 mg IVP Q6H [facility] Last Admin: 11/12/16 13:00 Dose: Not Given Clindamycin Phosphate 600 mg/ (Sodium Chloride) 54 mls @ 100 mls/hr IVPB Q6H [facility] Last Admin: 11/12/16 16:20 Dose: 100 mls/hr Ceftriaxone Sodium (Rocephin Iv 1 Gm Duplex) 50 mls @ 50 mls/30 min IVPB Q12H [facility] Last Admin: 11/12/16 05:13 Dose: 50 mls/30 min Famotidine 20 mg/ Sodium (Chloride) 52 mls @ 100 mls/hr IVPB BID [facility] Stop: 11/12/16 17:52 Ketorolac Tromethamine (Toradol) 30 mg IVP Q6 PRN PRN Reason: Pain, Mild (1-3) Last Admin: 11/09/16 10:05 Dose: 30 mg Senna/Docusate Sodium (Senokot S 50 Mg-8.6 Mg) 1 tab PO TID [facility] Last Admin: 11/12/16 13:14 Dose: 1 tab - Labs Labs: 11/12/16 10:50 11/12/16 10:50 PT 14.6 SECONDS (9.7-12.2) H 11/07/16 10:06 INR 1.3 11/07/16 10:06 APTT 29 SECONDS (21-34) 11/07/16 10:06 - Constitutional Appears: Non-toxic, Chronically Ill - Head Exam Head Exam: NORMOCEPHALIC - Eye Exam Eye Exam: PERRL - ENT Exam ENT Exam: Mucous Membranes Dry - Neck Exam Neck Exam: absent: Lymphadenopathy - Respiratory Exam Respiratory Exam: Decreased Breath Sounds, Clear to Ausculation Bilateral - Cardiovascular Exam Cardiovascular Exam: REGULAR RHYTHM - GI/Abdominal Exam GI & Abdominal Exam: Distended, Soft - Rectal Exam Rectal Exam: Deferred - Exam Exam: NORMAL INSPECTION - Neurological Exam Neurological Exam: Alert, Awake Assessment and Plan (1) Parotiditis Status: Acute - Assessment and Plan (Free Text) Plan: cont iv rx awat ent eval for or / resection of meningioma
[2016-11-12] MEDS: Dexamethasone 4 mg/1 ml IV SCH (18:00)
--- NOTE | 2016-11-12 18:25 | CP.PCM.PN ---
Subjective - Date & Time of Evaluation Date of Evaluation: 11/12/16 Time of Evaluation: 18:21 - Subjective Subjective: ID cleared Pt for surgery as of today Still waiting for medical clearnce Would like Anesthsia to see pt pre op to eval for intubation Neuro unchanged spoke to family explained risks of surgery include blleding, worsening of neuro condition and possible told them that the pt may show signs of clinical worsening after surgery before any signs of improvment They will discuss this and we will talk again tomorrow If they wish surgery will attempt to get OR time early next week, provided the hospital will order the appropriate equiptment(ultrasonic asperation device) for the operation. Objective - Vital Signs/Intake and Output Vital Signs (last 24 hours): Temp Pulse Resp BP Pulse Ox 98 F 104 H 22 138/83 98 11/12/16 16:00 11/12/16 16:00 11/12/16 16:00 11/12/16 17:58 11/12/16 16:00 Intake and Output: 11/12/16 11/12/16 06:59 18:59 Intake Total 184 Output Total 350 Balance -166 - Medications Medications: Current Medications Albuterol/Ipratropium (Duoneb 3 Mg/0.5 Mg (3 Ml) Ud) 3 ml INH RQ6 [facility] Dexamethasone (Decadron Inj) 8 mg IV Q8H [facility] Last Admin: 11/12/16 18:00 Dose: 8 mg Enalaprilat (Vasotec) 1.25 mg IV Q6 [facility] Last Admin: 11/12/16 17:58 Dose: 1.25 mg Famotidine (Pepcid) 20 mg IVP DAILY [facility] Last Admin: 11/12/16 10:00 Dose: 20 mg Hydralazine HCl (Apresoline) 10 mg IVP Q6H [facility] Last Admin: 11/12/16 13:00 Dose: Not Given Clindamycin Phosphate 600 mg/ (Sodium Chloride) 54 mls @ 100 mls/hr IVPB Q6H [facility] Last Admin: 11/12/16 16:20 Dose: 100 mls/hr Ceftriaxone Sodium (Rocephin Iv 1 Gm Duplex) 50 mls @ 50 mls/30 min IVPB Q12H [facility] Last Admin: 11/12/16 17:59 Dose: 50 mls/30 min Ketorolac Tromethamine (Toradol) 30 mg IVP Q6 PRN PRN Reason: Pain, Mild (1-3) Last Admin: 11/09/16 10:05 Dose: 30 mg Senna/Docusate Sodium (Senokot S 50 Mg-8.6 Mg) 1 tab PO TID [facility] Last Admin: 11/12/16 17:52 Dose: 1 tab - Labs Labs: 11/12/16 10:50 11/12/16 10:50 PT 14.6 SECONDS (9.7-12.2) H 11/07/16 10:06 INR 1.3 11/07/16 10:06 APTT 29 SECONDS (21-34) 11/07/16 10:06
--- NOTE | 2016-11-12 19:47 | CP.PCM.CON ---
History of Present Illness - History of Present Illness History of Present Illness: Reason for consultation: Shortness of breath 76 year old female with a history of HTN, bilateral cystic ovarian masses, presenting to the hospital with lower extremity weakness, currently undergoing treatment for parotitis, found to have a large brain lesion. Patient was initially admitted to ICU for respiratory insufficiency status post laryngoscopy that showed no upper Airway obstruction/narrowing. Patient was later transferred to floor and today developed respiratory distress. Patient unable to cough up secretions. Seen by neurosurgery. Past medical history: HTN Review of Systems - Review of Systems Systems not reviewed;Unavailable: Altered Mental Status Past Patient History - Infectious Disease Hx of Infectious Diseases: None - Tetanus Immunizations Tetanus Immunization: Unknown - Past Medical History & Family History Past Medical History?: No - Past Social History Smoking Status: Unknown If Ever Smoked - CARDIAC Hx Hypertension: Yes - PULMONARY Hx Respiratory Disorders: No - NEUROLOGICAL Hx Neurological Disorder: No - HEENT Hx HEENT Problems: No - RENAL Hx Chronic Kidney Disease: No - ENDOCRINE/METABOLIC Hx Endocrine Disorders: No - HEMATOLOGICAL/ONCOLOGICAL Hx Blood Disorders: No - INTEGUMENTARY Hx Dermatological Problems: No - MUSCULOSKELETAL/RHEUMATOLOGICAL Hx Falls: No (Unknown) - GASTROINTESTINAL Hx Gastrointestinal Disorders: No - GENITOURINARY/GYNECOLOGICAL Hx Genitourinary Disorders: No - PSYCHIATRIC Hx Substance Use: No - SURGICAL HISTORY Hx Surgeries: Yes Hx Cataract Extraction: Yes Hx Tubal Ligation: Yes - ANESTHESIA Hx Anesthesia: Yes Hx Anesthesia Reactions: No Hx Malignant Hyperthermia: No Meds Allergies/Adverse Reactions: Allergies Allergy/AdvReac Type Severity Reaction Status Date / Time No Known Allergies Allergy Verified 04/17/14 17:38 - Medications Medications: Current Medications Albuterol/Ipratropium (Duoneb 3 Mg/0.5 Mg (3 Ml) Ud) 3 ml INH RQ6 [facility] Last Admin: 11/12/16 19:24 Dose: 3 ml Dexamethasone (Decadron Inj) 8 mg IV Q8H [facility] Last Admin: 11/12/16 18:00 Dose: 8 mg Enalaprilat (Vasotec) 1.25 mg IV Q6 [facility] Last Admin: 11/12/16 17:58 Dose: 1.25 mg Famotidine (Pepcid) 20 mg IVP DAILY [facility] Last Admin: 11/12/16 10:00 Dose: 20 mg Hydralazine HCl (Apresoline) 10 mg IVP Q6H [facility] Last Admin: 11/12/16 18:10 Dose: Not Given Clindamycin Phosphate 600 mg/ (Sodium Chloride) 54 mls @ 100 mls/hr IVPB Q6H [facility] Last Admin: 11/12/16 16:20 Dose: 100 mls/hr Ceftriaxone Sodium (Rocephin Iv 1 Gm Duplex) 50 mls @ 50 mls/30 min IVPB Q12H [facility] Last Admin: 11/12/16 17:59 Dose: 50 mls/30 min Ketorolac Tromethamine (Toradol) 30 mg IVP Q6 PRN PRN Reason: Pain, Mild (1-3) Last Admin: 11/09/16 10:05 Dose: 30 mg Senna/Docusate Sodium (Senokot S 50 Mg-8.6 Mg) 1 tab PO TID [facility] Last Admin: 11/12/16 17:52 Dose: 1 tab Physical Exam - Head Exam Head Exam: ATRAUMATIC, NORMOCEPHALIC - ENT Exam ENT Exam: Mucous Membranes Dry - Neck Exam Additional comments: Audible wheeze/stridor - Respiratory Exam Respiratory Exam: Clear to Auscultation Bilateral - Cardiovascular Exam Cardiovascular Exam: REGULAR RHYTHM - GI/Abdominal Exam GI & Abdominal Exam: Normal Bowel Sounds, Soft Results - Vital Signs Recent Vital Signs: Last Vital Signs Temp 98 F 11/12/16 16:00 Pulse 104 H 11/12/16 16:53 Resp 22 11/12/16 16:00 BP 138/83 11/12/16 17:58 Pulse Ox 98 11/12/16 16:00 - Labs Result Diagrams: 11/12/16 10:50 11/12/16 10:50 Labs: Laboratory Results - last 24 hr 11/12/16 11/12/16 11/12/16 10:50 10:50 16:54 WBC 11.7 H RBC 4.77 Hgb 8.6 L Hct 29.5 L MCV 61.8 L MCH 18.0 L MCHC 29.2 L RDW 22.6 H Plt Count 331 MPV 9.1 Neut % (Auto) 76.4 H Lymph % (Auto) 10.4 L [place] % (Auto) 7.3 Eos % (Auto) 5.2 H Baso % (Auto) 0.7 Neut # 8.9 H Lymph # 1.2 [place] # 0.9 H Eos # 0.6 Baso # 0.1 Sodium 147 Potassium 4.2 Chloride 110 H Carbon Dioxide 32 H Anion Gap 9 L BUN 19 H Creatinine 0.6 L Est GFR ( Amer) > 60 Est GFR (Non-Af Amer) > 60 Random Glucose 214 H Calcium 9.2 Total Bilirubin 0.4 AST 27 ALT 32 Alkaline Phosphatase 92 Total Protein 5.4 L Albumin 2.3 L Globulin 3.0 Albumin/Globulin Ratio 0.8 L Prolactin 5.1 Assessment & Plan (1) Respiratory distress Status: Acute Comment: Respiratory distress secondary to upper airway secretions. Continue nebulizer treatment. BiPAP for now. Follow-up ABG. Continue steroids (2) Brain mass Status: Acute (3) Parotiditis Status: Acute
[2016-11-12 20:20] LABS: ABG ALLEN TEST POS; ARTERIAL BLOOD HGB O2 SAT 95.9 % (95.0-98.0); CARBOXYHEMOGLOBIN 2.3 % (0.5-1.5); DRAW SITE RRA; HHB 0.4 % (0.0-5.0); METHEMOGLOBIN 1.4 % (0.0-3.0)
[2016-11-13] MEDS: Enalaprilat 2.5 MG/2 ML IV SCH ×4 (01:05→17:26)
[2016-11-13] MEDS: Dexamethasone 4 mg/1 ml IV SCH ×3 (01:05→17:25)
[2016-11-13] MEDS: Albuterol-Ipratrop 3 mg / 0.5 (3 ml) UD INH SCH ×4 (01:37→19:44)
[2016-11-13] MEDS: cefTRIAXone IV 1 gm in Dextros 50 ML IVPB SCH ×2 (05:08→19:00)
--- NOTE | 2016-11-13 05:27 | CON ---
DATE: 11/12/2016 REASON FOR CONSULTATION: Abnormal CAT scan and abnormal change in mental status of the patient. CHIEF COMPLAINT: The patient was brought in to [facility] on 11/07/2016 for her change in mental status, weakness and poor intake of fluid and food. The patient was admitted and she did have emergency CAT scan and CAT showed a huge mass and Neurosurgery was called in the day. Today I was called in to followup on her neuro status. HISTORY OF PRESENT ILLNESS: The patient is a 76-year-old right-handed Afghan female, subacute process of inability to walk, gait disturbances, change in mental status, been admitted twice in the [facility] without diagnoses, been discharged, and the condition got worse, the family decided to switch the hospital to get admitted. The patient admitted and emergency CAT scan was done. CAT scan showed a huge extra-axial tumor presenting on her dominant frontal lobe giving pressure to the other side with the change in mental status. The patient also had evidence of some parotitis being treated under antibiotic until now. PAST MEDICAL HISTORY: Known to have hypertension. PERSONAL HISTORY: Denies smoking or alcohol use. ALLERGIES: NO KNOWN ALLERGIES. REVIEW OF SYSTEMS: A 12-point system being reviewed from Neurology system. The patient had change in mental status and abnormal CAT scan findings. MEDICATIONS: Hydralazine, clindamycin, albuterol, ceftriaxone, senna, ketorolac. PHYSICAL EXAMINATION VITAL SIGNS: Blood pressure 149/76, mean arterial pressure of 100, respiratory rate 18, temperature afebrile. NECK: Supple. NEUROLOGIC: The patient is sleepy on NG tube. Arousable on calling her name. Emotional crying on seeing her family members, particularly her granddaughter. Seems to be communicable. She follows 1-step command. Cranial nerve examination, pupils are reactive to light. Extraocular movement, rolling conjugate gaze noted with good corneal reflex. No facial asymmetry noted. Gag impaired. The patient on NG tube. Right hemiparesis noted. Left side, she could able to move her arm more than the right side. Deep tendon reflexes absent. Plantars are upgoing on the right side. Left side was mute. Sensory examination, responds to pain symmetrically on both sides. LABORATORY DATA: Workup, WBC 11.7, hemoglobin 8.6, hematocrit 29.5, platelets 381. Sodium 147, potassium 4.2, chloride 110, bicarbonate 32. BUN 19, creatinine 0.6, GFR more than 60, glucose 214, protein 5.4, albumin 2.3, prolactin 5.1. Initial CT of the head which was done at the time of the admission being reviewed, showed about 6.5 x 4.3 cm hyperattenuated left frontal mass with peripheral calcification suggestive of possible meningioma with mass affect to the right side and subfalcine herniation. Followup MRI also reviewed by me which was done 11/08 suggestive of same finding as per the CAT scan with the significant vasogenic edema around the tumor and subfalcine herniation also noted. This lesion all the way extended to the inferior orbital region. Followup CAT scan again, this was done today been reviewed, which is unchanged in the previous exam. CONCLUSION: The patient being presenting with increasing sleepiness with some rapid breathing, associating with right hemiparesis correlated with her radiological studies suggestive of an intracranial lesion, possible extra-axial lesion suggestive of meningioma. With vasogenic edema presenting on right side, manifesting with right hemiparesis, change in mental status all related to increased intracranial pressure. RECOMMENDATIONS: 1. The patient should have been given Decadron which is given now to decrease the edema. 2. Pepcid to cover for the toxic effect from the steroids. The patient's condition being discussed with infectious disease, Dr. Rubi, he cleared from his side. No restriction to do any decompression of her brain. The patient's condition, also extensive discussion with the family members about 30 minutes. The patient's condition also discussed with neurosurgeon to update the situation for possible craniotomy. In the meantime, we are waiting for medical clearance to pursue this surgical decompression. Jourdan Mitchell MD
--- NOTE | 2016-11-13 08:23 | PN ---
DATE: 11/13/2016 NEUROLOGICAL PROBLEM: Intracranial lesion (possible meningioma) in left front lobe with significant subfalcine herniation. The patient is easily arousable, the is patient on BiPAP. Immediately opened her eyes, good visual cue. Pupils are equally reactive to light. Extraocular movements are normal. Still she is manifesting with right hemiparesis. Her rest of the examinations are unchanged. The patient is on steroids with H2 blockers. The patient seems to have improved her mentation and progressive snoring with sleeping (sign of increased ICP) has decreased. Continue the present management. When medically cleared, the patient should have decompression. Jourdan Mitchell MD
--- NOTE | 2016-11-13 08:25 | CP.PCM.CON ---
History of Present Illness - History of Present Illness History of Present Illness: PATIENT SEEN YESTERDAY AND CONSULT DICTATED NEW SUB AC PROCESS OF GAIT DISTURBANCES, MENTATION AND INCREASING SLEEPINISS DISCUSSED WITH FAMILY AND MADE NEURO SURGERY TO FOLLOW NEEDS DECOMPRESSION STEROIDS STARTED TO DECREASE VASOGENIC EDEMA EASILY AROUSABLE TODAY AM TRIES TO FOLLOW COMMANDS RESPONDING WITH STEROID PER TODAY'S EXAM PROBABLY DECOMPRESSION ON TUESDAY CONTINUE THE PRESENT MANAGEMENT Past Patient History - Infectious Disease Hx of Infectious Diseases: None - Tetanus Immunizations Tetanus Immunization: Unknown - Past Medical History & Family History Past Medical History?: No - Past Social History Smoking Status: Unknown If Ever Smoked - CARDIAC Hx Hypertension: Yes - PULMONARY Hx Respiratory Disorders: No - NEUROLOGICAL Hx Neurological Disorder: No - HEENT Hx HEENT Problems: No - RENAL Hx Chronic Kidney Disease: No - ENDOCRINE/METABOLIC Hx Endocrine Disorders: No - HEMATOLOGICAL/ONCOLOGICAL Hx Blood Disorders: No - INTEGUMENTARY Hx Dermatological Problems: No - MUSCULOSKELETAL/RHEUMATOLOGICAL Hx Falls: No (Unknown) - GASTROINTESTINAL Hx Gastrointestinal Disorders: No - GENITOURINARY/GYNECOLOGICAL Hx Genitourinary Disorders: No - PSYCHIATRIC Hx Substance Use: No - SURGICAL HISTORY Hx Surgeries: Yes Hx Cataract Extraction: Yes Hx Tubal Ligation: Yes - ANESTHESIA Hx Anesthesia: Yes Hx Anesthesia Reactions: No Hx Malignant Hyperthermia: No Meds Allergies/Adverse Reactions: Allergies Allergy/AdvReac Type Severity Reaction Status Date / Time No Known Allergies Allergy Verified 04/17/14 17:38 - Medications Medications: Current Medications Albuterol/Ipratropium (Duoneb 3 Mg/0.5 Mg (3 Ml) Ud) 3 ml INH RQ6 [facility] Last Admin: 11/13/16 08:13 Dose: 3 ml Dexamethasone (Decadron Inj) 8 mg IV Q8H [facility] Last Admin: 11/13/16 01:05 Dose: 8 mg Enalaprilat (Vasotec) 1.25 mg IV Q6 [facility] Last Admin: 11/13/16 06:10 Dose: 1.25 mg Famotidine (Pepcid) 20 mg IVP DAILY [facility] Last Admin: 11/12/16 10:00 Dose: 20 mg Hydralazine HCl (Apresoline) 10 mg IVP Q6H [facility] Last Admin: 11/13/16 06:09 Dose: 10 mg Clindamycin Phosphate 600 mg/ (Sodium Chloride) 54 mls @ 100 mls/hr IVPB Q6H [facility] Last Admin: 11/13/16 04:03 Dose: 100 mls/hr Ceftriaxone Sodium (Rocephin Iv 1 Gm Duplex) 50 mls @ 50 mls/30 min IVPB Q12H [facility] Last Admin: 11/13/16 05:08 Dose: 50 mls/30 min Ketorolac Tromethamine (Toradol) 30 mg IVP Q6 PRN PRN Reason: Pain, Mild (1-3) Last Admin: 11/09/16 10:05 Dose: 30 mg Senna/Docusate Sodium (Senokot S 50 Mg-8.6 Mg) 1 tab PO TID [facility] Last Admin: 11/12/16 17:52 Dose: 1 tab Results - Vital Signs Recent Vital Signs: Last Vital Signs Temp 99.5 F 11/13/16 07:10 Pulse 102 H 11/13/16 07:48 Resp 18 11/13/16 07:10 BP 126/76 11/13/16 07:10 Pulse Ox 100 11/13/16 07:10 - Labs Result Diagrams: 11/12/16 10:50 11/12/16 10:50 Labs: Laboratory Results - last 24 hr 11/12/16 11/12/16 11/12/16 10:50 10:50 16:54 WBC 11.7 H RBC 4.77 Hgb 8.6 L Hct 29.5 L MCV 61.8 L MCH 18.0 L MCHC 29.2 L RDW 22.6 H Plt Count 331 MPV 9.1 Neut % (Auto) 76.4 H Lymph % (Auto) 10.4 L [place] % (Auto) 7.3 Eos % (Auto) 5.2 H Baso % (Auto) 0.7 Neut # 8.9 H Lymph # 1.2 [place] # 0.9 H Eos # 0.6 Baso # 0.1 Puncture Site pCO2 pO2 HCO3 ABG pH ABG Total CO2 ABG O2 Saturation ABG Base Excess ABG Hemoglobin ABG Carboxyhemoglobin POC ABG HHb (Measured) ABG Methemoglobin [place] Test A-a O2 Difference Respiratory Index Hgb O2 Saturation Liter Flow FiO2 Sodium 147 Potassium 4.2 Chloride 110 H Carbon Dioxide 32 H Anion Gap 9 L BUN 19 H Creatinine 0.6 L Est GFR ( Amer) > 60 Est GFR (Non-Af Amer) > 60 Random Glucose 214 H Calcium 9.2 Total Bilirubin 0.4 AST 27 ALT 32 Alkaline Phosphatase 92 Total Protein 5.4 L Albumin 2.3 L Globulin 3.0 Albumin/Globulin Ratio 0.8 L Prolactin 5.1 11/12/16 20:17 WBC RBC Hgb Hct MCV MCH MCHC RDW Plt Count MPV Neut % (Auto) Lymph % (Auto) [place] % (Auto) Eos % (Auto) Baso % (Auto) Neut # Lymph # [place] # Eos # Baso # Puncture Site Rra pCO2 48 H pO2 112 H HCO3 31.5 H ABG pH 7.45 ABG Total CO2 34.9 H ABG O2 Saturation 99.6 H ABG Base Excess 8.4 H ABG Hemoglobin 9.3 L ABG Carboxyhemoglobin 2.3 H POC ABG HHb (Measured) 0.4 ABG Methemoglobin 1.4 [place] Test Pos A-a O2 Difference 56.0 Respiratory Index 0.5 Hgb O2 Saturation 95.9 Liter Flow 3.0 FiO2 32.0 Sodium Potassium Chloride Carbon Dioxide Anion Gap BUN Creatinine Est GFR ( Amer) Est GFR (Non-Af Amer) Random Glucose Calcium Total Bilirubin AST ALT Alkaline Phosphatase Total Protein Albumin Globulin Albumin/Globulin Ratio Prolactin
[2016-11-13] MEDS: Docusate-Senna 50 mg-8.6 mg Tab PO SCH ×3 (09:29→17:25)
--- NOTE | 2016-11-13 11:36 | CP.PCM.PN ---
Subjective - Date & Time of Evaluation Date of Evaluation: 11/13/16 Time of Evaluation: 09:20 - Subjective Subjective: clinically same neurosurg and id following s/p dr ramirez neuro Objective - Vital Signs/Intake and Output Vital Signs (last 24 hours): Temp Pulse Resp BP Pulse Ox 99.5 F 102 H 18 126/76 100 11/13/16 07:10 11/13/16 07:48 11/13/16 07:10 11/13/16 07:10 11/13/16 07:10 Intake and Output: 11/13/16 11/13/16 06:59 18:59 Intake Total 700 Output Total 400 Balance 300 - Medications Medications: Current Medications Albuterol/Ipratropium (Duoneb 3 Mg/0.5 Mg (3 Ml) Ud) 3 ml INH RQ6 [facility] Last Admin: 11/13/16 08:13 Dose: 3 ml Dexamethasone (Decadron Inj) 8 mg IV Q8H [facility] Last Admin: 11/13/16 10:49 Dose: 8 mg Enalaprilat (Vasotec) 1.25 mg IV Q6 [facility] Last Admin: 11/13/16 06:10 Dose: 1.25 mg Famotidine (Pepcid) 20 mg IVP DAILY [facility] Last Admin: 11/13/16 09:29 Dose: 20 mg Hydralazine HCl (Apresoline) 10 mg IVP Q6H [facility] Last Admin: 11/13/16 06:09 Dose: 10 mg Clindamycin Phosphate 600 mg/ (Sodium Chloride) 54 mls @ 100 mls/hr IVPB Q6H [facility] Last Admin: 11/13/16 04:03 Dose: 100 mls/hr Ceftriaxone Sodium (Rocephin Iv 1 Gm Duplex) 50 mls @ 50 mls/30 min IVPB Q12H [facility] Last Admin: 11/13/16 05:08 Dose: 50 mls/30 min Ketorolac Tromethamine (Toradol) 30 mg IVP Q6 PRN PRN Reason: Pain, Mild (1-3) Last Admin: 11/09/16 10:05 Dose: 30 mg Senna/Docusate Sodium (Senokot S 50 Mg-8.6 Mg) 1 tab PO TID [facility] Last Admin: 11/13/16 09:29 Dose: 1 tab - Labs Labs: 11/12/16 10:50 11/12/16 10:50 PT 14.6 SECONDS (9.7-12.2) H 11/07/16 10:06 INR 1.3 11/07/16 10:06 APTT 29 SECONDS (21-34) 11/07/16 10:06 - Constitutional Appears: Well - Head Exam Head Exam: ATRAUMATIC, NORMAL INSPECTION, NORMOCEPHALIC - Eye Exam Eye Exam: EOMI, Normal appearance, PERRL Pupil Exam: NORMAL ACCOMODATION, PERRL - ENT Exam ENT Exam: Mucous Membranes Moist, Normal Exam - Neck Exam Neck Exam: Full ROM, Normal Inspection. absent: Lymphadenopathy - Respiratory Exam Respiratory Exam: Decreased Breath Sounds - Cardiovascular Exam Cardiovascular Exam: REGULAR RHYTHM, +S1, +S2 - GI/Abdominal Exam GI & Abdominal Exam: Soft, Diminished Bowel Sounds - Rectal Exam Rectal Exam: Deferred - Neurological Exam Neurological Exam: Alert, Awake Assessment and Plan (1) Altered mental status Status: Acute (2) Parotiditis Status: Acute (3) Respiratory distress Status: Acute (4) Abdominal pain Status: Acute (5) Anemia Status: Acute (6) Constipation Status: Acute (7) Hyperglycemia Status: Acute (8) Hypokalemia Status: Acute (9) Ovarian cystic mass Status: Acute (10) Prophylactic measure Status: Acute (11) UTI (urinary tract infection) Status: Acute - Assessment and Plan (Free Text) Plan: EKG revealed a sinus tachycardia with abnormal EKG Will get the EKG and again and then clear the patient's patient's cleared by Dr. Rubi patients to be seen by neurosurgery again spoke to the patient's family at length about possible surgery needs medical clearance patient is cleared ID point of view continue follow-up with neuro The follow-up with neurosurgeon Follow-up with ID Follow-up with the critical care follow-up with intesivisit
--- NOTE | 2016-11-13 19:49 | CP.PCM.PN ---
Subjective - Date & Time of Evaluation Date of Evaluation: 11/13/16 Time of Evaluation: 15:30 - Subjective Subjective: patient seen and examined. More awake and responsive patient is on BiPAP Less shortness of breath Afebrile Possible decompression surgery on Tuesday Continue IV steroids and nebulizer treatment Objective - Vital Signs/Intake and Output Vital Signs (last 24 hours): Temp Pulse Resp BP Pulse Ox 98 F 103 H 18 137/75 98 11/13/16 16:00 11/13/16 16:00 11/13/16 16:00 11/13/16 17:26 11/13/16 16:00 Intake and Output: 11/13/16 11/14/16 18:59 06:59 Intake Total 320 Balance 320 - Medications Medications: Current Medications Albuterol/Ipratropium (Duoneb 3 Mg/0.5 Mg (3 Ml) Ud) 3 ml INH RQ6 [facility] Last Admin: 11/13/16 19:44 Dose: 3 ml Dexamethasone (Decadron Inj) 8 mg IV Q8H [facility] Last Admin: 11/13/16 17:25 Dose: 8 mg Enalaprilat (Vasotec) 1.25 mg IV Q6 [facility] Last Admin: 11/13/16 17:26 Dose: 1.25 mg Famotidine (Pepcid) 20 mg IVP DAILY [facility] Last Admin: 11/13/16 09:29 Dose: 20 mg Hydralazine HCl (Apresoline) 10 mg IVP Q6H [facility] Last Admin: 11/13/16 12:46 Dose: Not Given Ceftriaxone Sodium (Rocephin Iv 1 Gm Duplex) 50 mls @ 50 mls/30 min IVPB Q12H [facility] Last Admin: 11/13/16 05:08 Dose: 50 mls/30 min Senna/Docusate Sodium (Senokot S 50 Mg-8.6 Mg) 1 tab PO TID [facility] Last Admin: 11/13/16 17:25 Dose: 1 tab - Labs Labs: 11/12/16 10:50 11/12/16 10:50 PT 14.6 SECONDS (9.7-12.2) H 11/07/16 10:06 INR 1.3 11/07/16 10:06 APTT 29 SECONDS (21-34) 11/07/16 10:06 Assessment and Plan (1) Respiratory distress Status: Acute (2) Brain mass Status: Acute (3) Parotiditis Status: Acute
[2016-11-14] MEDS: Enalaprilat 2.5 MG/2 ML IV SCH ×4 (00:25→18:50)
[2016-11-14] MEDS: Dexamethasone 4 mg/1 ml IV SCH ×3 (01:34→18:52)
[2016-11-14] MEDS: Albuterol-Ipratrop 3 mg / 0.5 (3 ml) UD INH SCH ×4 (01:37→20:02)
[2016-11-14] MEDS: cefTRIAXone IV 1 gm in Dextros 50 ML IVPB SCH ×2 (05:19→18:53)
--- NOTE | 2016-11-14 09:52 | CP.PCM.PN ---
Subjective - Date & Time of Evaluation Date of Evaluation: 11/14/16 Time of Evaluation: 09:40 - Subjective Subjective: clinically same consultants following Objective - Vital Signs/Intake and Output Vital Signs (last 24 hours): Temp Pulse Resp BP Pulse Ox 98 F 116 H 21 148/78 98 11/14/16 08:41 11/14/16 08:41 11/14/16 08:41 11/14/16 08:41 11/14/16 08:41 Intake and Output: 11/14/16 11/14/16 06:59 18:59 Output Total 1200 Balance -1200 - Medications Medications: Current Medications Albuterol/Ipratropium (Duoneb 3 Mg/0.5 Mg (3 Ml) Ud) 3 ml INH RQ6 [facility] Last Admin: 11/14/16 08:04 Dose: 3 ml Dexamethasone (Decadron Inj) 8 mg IV Q8H [facility] Last Admin: 11/14/16 01:34 Dose: 8 mg Enalaprilat (Vasotec) 1.25 mg IV Q6 [facility] Last Admin: 11/14/16 05:19 Dose: 1.25 mg Famotidine (Pepcid) 20 mg IVP DAILY [facility] Last Admin: 11/13/16 09:29 Dose: 20 mg Hydralazine HCl (Apresoline) 10 mg IVP Q6H [facility] Last Admin: 11/14/16 06:09 Dose: Not Given Ceftriaxone Sodium (Rocephin Iv 1 Gm Duplex) 50 mls @ 50 mls/30 min IVPB Q12H [facility] Last Admin: 11/14/16 05:19 Dose: 50 mls/30 min Senna/Docusate Sodium (Senokot S 50 Mg-8.6 Mg) 1 tab PO TID [facility] Last Admin: 11/13/16 17:25 Dose: 1 tab - Labs Labs: 11/12/16 10:50 11/12/16 10:50 PT 14.6 SECONDS (9.7-12.2) H 11/07/16 10:06 INR 1.3 11/07/16 10:06 APTT 29 SECONDS (21-34) 11/07/16 10:06 - Constitutional Appears: Well - Head Exam Head Exam: ATRAUMATIC, NORMAL INSPECTION, NORMOCEPHALIC - Eye Exam Eye Exam: EOMI, Normal appearance, PERRL Pupil Exam: NORMAL ACCOMODATION, PERRL - ENT Exam ENT Exam: Mucous Membranes Moist, Normal Exam - Neck Exam Neck Exam: Full ROM, Normal Inspection. absent: Lymphadenopathy - Respiratory Exam Respiratory Exam: Decreased Breath Sounds - Cardiovascular Exam Cardiovascular Exam: REGULAR RHYTHM, +S1, +S2 - GI/Abdominal Exam GI & Abdominal Exam: Soft, Diminished Bowel Sounds - Rectal Exam Rectal Exam: Deferred - Neurological Exam Neurological Exam: Alert, Awake Assessment and Plan (1) Altered mental status Status: Acute (2) Parotiditis Status: Acute (3) Respiratory distress Status: Acute (4) Abdominal pain Status: Acute (5) Anemia Status: Acute (6) Constipation Status: Acute (7) Hyperglycemia Status: Acute (8) Hypokalemia Status: Acute (9) Ovarian cystic mass Status: Acute (10) Prophylactic measure Status: Acute (11) UTI (urinary tract infection) Status: Acute - Assessment and Plan (Free Text) Plan: maría same iv abx ng tube placement f/u with neurosurg id dr vazquez cleared for surgery neurosurg awaiting further clearance maría meds as ordered f/u labs f/u imaging
[2016-11-14] MEDS: Docusate-Senna 50 mg-8.6 mg Tab PO SCH ×4 (10:00→18:26)
--- NOTE | 2016-11-14 11:58 | PCM.PROC ---
Procedures Attestation:: I certify that I have explained the specified Operation(s) or Procedure(s), risks, benefits and reasonable alternatives to the Patient and/or other person responsible. The opportunity was given to ask questions and all questions answered - Feeding Tube Replacement Type of Tube: nasogastric Insertion Site Prior to Procedure: clean Verification of Placement: auscultation, other (abdominal x-ray ordered) Tube Secured by: tape/dressing Patient Tolerated Procedure: well Complications: other (patient was uncomfortable)
--- NOTE | 2016-11-14 12:34 | RAD ---
HISTORY: NGT placement . Portable study 22:00. COMPARISON: 11/10/2016. FINDINGS: LUNGS: No active pulmonary disease. PLEURA: No significant pleural effusion identified, no pneumothorax apparent. CARDIOVASCULAR: No radiographic findings to suggest acute or significant cardiovascular disease. PICC line in satisfactory position unchanged compared to prior studies. OSSEOUS STRUCTURES: No significant abnormalities. VISUALIZED UPPER ABDOMEN: Normal. OTHER FINDINGS: Nasogastric tube is uncoiled coursing through the esophagus and stomach, the tip is not seen. IMPRESSION: Satisfactory position of support apparatus. No active pulmonary disease.
--- NOTE | 2016-11-14 12:50 | RAD ---
HISTORY: s/p NG tube placement COMPARISON: November 13, 2016. 22:13. FINDINGS: BOWEL: Nasogastric tube tip now at gastroesophageal junction. This compares to the prior study at which time the tip of the nasogastric tube was in the vicinity of the pylorus. BONES: Normal. OTHER FINDINGS: None. IMPRESSION: Poorly positioned nasogastric tube. The should be advanced 07-2010 cm for optimal placement.
--- NOTE | 2016-11-14 14:16 | CP.PCM.PN ---
Subjective - Date & Time of Evaluation Date of Evaluation: 11/14/16 Time of Evaluation: 09:00 - Subjective Subjective: More awake and responsive patient is on BiPAP Less shortness of breath Afebrile Possible decompression surgery on Tuesday Continue IV steroids and nebulizer treatment Objective - Vital Signs/Intake and Output Vital Signs (last 24 hours): Temp Pulse Resp BP Pulse Ox 99.5 F 101 H 20 149/83 99 11/14/16 12:48 11/14/16 12:48 11/14/16 12:48 11/14/16 12:50 11/14/16 12:48 Intake and Output: 11/14/16 11/14/16 06:59 18:59 Output Total 1200 Balance -1200 - Medications Medications: Current Medications Albuterol/Ipratropium (Duoneb 3 Mg/0.5 Mg (3 Ml) Ud) 3 ml INH RQ6 [facility] Last Admin: 11/14/16 13:58 Dose: 3 ml Dexamethasone (Decadron Inj) 8 mg IV Q8H [facility] Last Admin: 11/14/16 10:55 Dose: 8 mg Enalaprilat (Vasotec) 1.25 mg IV Q6 [facility] Last Admin: 11/14/16 12:50 Dose: 1.25 mg Famotidine (Pepcid) 20 mg IVP DAILY [facility] Last Admin: 11/14/16 10:54 Dose: 20 mg Hydralazine HCl (Apresoline) 10 mg IVP Q6H [facility] Last Admin: 11/14/16 12:56 Dose: Not Given Ceftriaxone Sodium (Rocephin Iv 1 Gm Duplex) 50 mls @ 50 mls/30 min IVPB Q12H [facility] Last Admin: 11/14/16 05:19 Dose: 50 mls/30 min Senna/Docusate Sodium (Senokot S 50 Mg-8.6 Mg) 1 tab PO TID [facility] Last Admin: 11/14/16 13:08 Dose: Not Given - Labs Labs: 11/12/16 10:50 11/12/16 10:50 PT 14.6 SECONDS (9.7-12.2) H 11/07/16 10:06 INR 1.3 11/07/16 10:06 APTT 29 SECONDS (21-34) 11/07/16 10:06 - Constitutional Appears: Non-toxic, Cachectic, Chronically Ill - Head Exam Head Exam: NORMOCEPHALIC - Eye Exam Eye Exam: PERRL - ENT Exam ENT Exam: Mucous Membranes Dry, Normal External Ear Exam - Neck Exam Neck Exam: absent: Lymphadenopathy - Respiratory Exam Respiratory Exam: Decreased Breath Sounds, Rhonchi - Cardiovascular Exam Cardiovascular Exam: REGULAR RHYTHM - GI/Abdominal Exam GI & Abdominal Exam: Distended, Soft - Rectal Exam Rectal Exam: Deferred - Exam Exam: NORMAL INSPECTION - Extremities Exam Extremities Exam: absent: Pedal Edema - Back Exam Back Exam: absent: CVA tenderness (L), CVA tenderness (R) - Neurological Exam Neurological Exam: Alert, Awake Neuro motor strength exam: Left Upper Extremity: 3, Right Upper Extremity: 2/1, Left Lower Extremity: 3, Right Lower Extremity: 2/1 - Psychiatric Exam Psychiatric exam: Normal Mood Assessment and Plan (1) Parotiditis Status: Acute - Assessment and Plan (Free Text) Assessment: for or tuesday More awake and responsive patient is on BiPAP Less shortness of breath Afebrile Possible decompression surgery on Tuesday Continue IV steroids and nebulizer treatment
--- NOTE | 2016-11-14 14:37 | PN ---
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 PHYSICAL EXAMINATION: VITAL SIGNS: Blood pressure 149/83, mean arterial pressure of 105, respiratory rate 16, temperature 99.5, and pulse rate 101. NEUROLOGIC: The patient is more awake, alert, good visual contact, and try to follow command because of the language barrier could not able to contact and/or follow the commands. Right hemiparesis still persist. Extraocular movement intact. The patient is on NG tube. The patient is tolerating Decadron dose. The patient seems to be responding well with steroids to brought down her intracerebral pressure findings. The patient is scheduled to have decompressive surgery tomorrow as per the discussion with the neurosurgeon on Tuesday. Jourdan Mitchell MD
--- NOTE | 2016-11-14 15:13 | RAD ---
HISTORY: NG tube reposition COMPARISON: Comparison is made to the previous same-day exam. FINDINGS: BOWEL: The NG tube is again seen with the tip at the gastroesophageal junction. Residual contrast in the large bowel is again seen. BONES: Degenerative changes and possible osteopenia. OTHER FINDINGS: None. IMPRESSION: The NG tube tip seen again at the EG junction.
[2016-11-15] MEDS: Enalaprilat 2.5 MG/2 ML IV SCH ×4 (00:44→18:43)
[2016-11-15] MEDS: Albuterol-Ipratrop 3 mg / 0.5 (3 ml) UD INH SCH ×3 (01:29→13:36)
[2016-11-15] MEDS: Dexamethasone 4 mg/1 ml IV SCH ×3 (02:48→18:44)
[2016-11-15] MEDS: cefTRIAXone IV 1 gm in Dextros 50 ML IVPB SCH ×2 (05:32→18:43)
--- NOTE | 2016-11-15 09:31 | PN ---
DATE: 11/15/2016 TIME OF EVALUATION: 07:10 a.m. Growing left frontal extra axial mass with significant pressure affected to the right side. Her increased ICP symptoms have all gone at present. She is more awake, alert, smiling at me, somewhat moving both upper extremities. Still having right hemiparesis. Reflexes are not changed and plantars are upgoing on the right side. Medically as well as clinically the patient has improved with the steroid at present. The patient was cleared by ID from infectious source. From Medicine, the patient should be cleared and medical clearance should be done in place in order neurosurgeon to pursue his part. The patient's condition being discussed with the nurse extensively this morning. Jourdan Mitchell MD MTDD
[2016-11-15] MEDS: Docusate-Senna 50 mg-8.6 mg Tab PO SCH ×3 (10:09→18:44)
--- NOTE | 2016-11-15 10:12 | CP.PCM.PCO ---
Physician Communication Note - Physician Communication Note Physician Communication Note: pt medically stable for or with mod risk related ot age and comorbid condit
--- NOTE | 2016-11-15 10:28 | CP.PCM.PN ---
Subjective - Date & Time of Evaluation Date of Evaluation: 11/15/16 Time of Evaluation: 10:27 - Subjective Subjective: pt medically clear discussed risks in detail with son he agrees will proceed tomorrow with craniotomy exc of tumor Objective - Vital Signs/Intake and Output Vital Signs (last 24 hours): Temp Pulse Resp BP Pulse Ox 98.1 F 88 20 158/80 H 100 11/15/16 08:39 11/15/16 08:39 11/15/16 08:39 11/15/16 08:39 11/15/16 08:39 Intake and Output: 11/15/16 11/15/16 06:59 18:59 Intake Total 50 Output Total 1050 Balance -1000 - Medications Medications: Current Medications Albuterol/Ipratropium (Duoneb 3 Mg/0.5 Mg (3 Ml) Ud) 3 ml INH RQ6 [facility] Last Admin: 11/15/16 07:38 Dose: 3 ml Dexamethasone (Decadron Inj) 8 mg IV Q8H [facility] Last Admin: 11/15/16 10:09 Dose: 8 mg Enalaprilat (Vasotec) 1.25 mg IV Q6 [facility] Last Admin: 11/15/16 05:30 Dose: 1.25 mg Famotidine (Pepcid) 20 mg IVP DAILY [facility] Last Admin: 11/15/16 10:09 Dose: 20 mg Hydralazine HCl (Apresoline) 10 mg IVP Q6H [facility] Last Admin: 11/15/16 00:42 Dose: Not Given Ceftriaxone Sodium (Rocephin Iv 1 Gm Duplex) 50 mls @ 50 mls/30 min IVPB Q12H [facility] Last Admin: 11/15/16 05:32 Dose: 50 mls/30 min Senna/Docusate Sodium (Senokot S 50 Mg-8.6 Mg) 1 tab PO TID [facility] Last Admin: 11/15/16 10:09 Dose: 1 tab - Labs Labs: 11/12/16 10:50 11/12/16 10:50 PT 14.6 SECONDS (9.7-12.2) H 11/07/16 10:06 INR 1.3 11/07/16 10:06 APTT 29 SECONDS (21-34) 11/07/16 10:06
--- NOTE | 2016-11-15 11:15 | RAD ---
HISTORY: NG reposition COMPARISON: Comparison is made to the previous same-day exam FINDINGS: BOWEL: Normal. No obstruction. No free air. Interval advance of the NG tube now seen in the distal portion of the stomach. BONES: Normal. OTHER FINDINGS: None. IMPRESSION: Interval advance of the NG tube with the tip now is likely in the distal stomach or proximal duodenum.
[2016-11-15 11:27] LABS: HEMATOCRIT 27.8 % (34.0-47.0); MEAN CELL VOLUME 62.8 fL (81.0-99.0); MEAN CORPUSCULAR HEMOGLOBIN 18.4 pg (27.0-31.0); MEAN CORPUSCULAR HGB CONC 29.3 g/dL (33.0-37.0); MEAN PLATELET VOLUME 10.3 fL (7.2-11.7); RED CELL DISTRIBUTION WIDTH 22.7 % (11.5-14.5); WHITE BLOOD COUNT 8.3 K/uL (4.8-10.8)
[2016-11-15 11:30] LABS: CHLORIDE 109 mmol/L (98-107); SODIUM 147 mmol/L (132-148)
[2016-11-15 11:33] LABS: BLOOD UREA NITROGEN 31 mg/dL (7-17); CARBON DIOXIDE 33 mmol/L (22-30); GFR AFRICAN-AMERICAN > 60; GLUCOSE,RANDOM 260 mg/dL (65-105)
[2016-11-15 11:34] LABS: CALCIUM 9.4 mg/dl (8.6-10.4)
--- NOTE | 2016-11-15 11:54 | CP.PCM.PN ---
Subjective - Date & Time of Evaluation Date of Evaluation: 11/15/16 Time of Evaluation: 08:00 - Subjective Subjective: Patient seen and examined. Refusing BiPAP Less short of breath Afebrile Upper airway secretions For surgery tomorrow Continue present treatment Followup ABG Objective - Vital Signs/Intake and Output Vital Signs (last 24 hours): Temp Pulse Resp BP Pulse Ox 98.1 F 95 H 20 158/80 H 100 11/15/16 08:39 11/15/16 10:00 11/15/16 08:39 11/15/16 08:39 11/15/16 08:39 Intake and Output: 11/15/16 11/15/16 06:59 18:59 Intake Total 50 Output Total 1050 Balance -1000 - Medications Medications: Current Medications Albuterol/Ipratropium (Duoneb 3 Mg/0.5 Mg (3 Ml) Ud) 3 ml INH RQ6 [facility] Last Admin: 11/15/16 07:38 Dose: 3 ml Dexamethasone (Decadron Inj) 8 mg IV Q8H [facility] Last Admin: 11/15/16 10:09 Dose: 8 mg Enalaprilat (Vasotec) 1.25 mg IV Q6 [facility] Last Admin: 11/15/16 05:30 Dose: 1.25 mg Famotidine (Pepcid) 20 mg IVP DAILY [facility] Last Admin: 11/15/16 10:09 Dose: 20 mg Hydralazine HCl (Apresoline) 10 mg IVP Q6H [facility] Last Admin: 11/15/16 00:42 Dose: Not Given Ceftriaxone Sodium (Rocephin Iv 1 Gm Duplex) 50 mls @ 50 mls/30 min IVPB Q12H [facility] Last Admin: 11/15/16 05:32 Dose: 50 mls/30 min Senna/Docusate Sodium (Senokot S 50 Mg-8.6 Mg) 1 tab PO TID [facility] Last Admin: 11/15/16 10:09 Dose: 1 tab - Labs Labs: 11/15/16 11:17 11/15/16 11:17 PT 11.7 SECONDS (9.7-12.2) 11/15/16 11:17 INR 1.0 11/15/16 11:17 APTT 27 SECONDS (21-34) 11/15/16 11:17 Assessment and Plan (1) Respiratory distress Status: Acute (2) Brain mass Status: Acute (3) Parotiditis Status: Acute
--- NOTE | 2016-11-15 13:09 | CP.PCM.PN ---
Subjective - Date & Time of Evaluation Date of Evaluation: 11/15/16 Time of Evaluation: 10:00 - Subjective Subjective: clinically same consultants following Objective - Vital Signs/Intake and Output Vital Signs (last 24 hours): Temp Pulse Resp BP Pulse Ox 98.1 F 95 H 20 158/80 H 100 11/15/16 08:39 11/15/16 10:00 11/15/16 08:39 11/15/16 08:39 11/15/16 08:39 Intake and Output: 11/15/16 11/15/16 06:59 18:59 Intake Total 50 Output Total 1050 Balance -1000 - Medications Medications: Current Medications Albuterol/Ipratropium (Duoneb 3 Mg/0.5 Mg (3 Ml) Ud) 3 ml INH RQ6 [facility] Last Admin: 11/15/16 07:38 Dose: 3 ml Dexamethasone (Decadron Inj) 8 mg IV Q8H [facility] Last Admin: 11/15/16 10:09 Dose: 8 mg Enalaprilat (Vasotec) 1.25 mg IV Q6 [facility] Last Admin: 11/15/16 05:30 Dose: 1.25 mg Famotidine (Pepcid) 20 mg IVP DAILY [facility] Last Admin: 11/15/16 10:09 Dose: 20 mg Hydralazine HCl (Apresoline) 10 mg IVP Q6H [facility] Last Admin: 11/15/16 00:42 Dose: Not Given Ceftriaxone Sodium (Rocephin Iv 1 Gm Duplex) 50 mls @ 50 mls/30 min IVPB Q12H [facility] Last Admin: 11/15/16 05:32 Dose: 50 mls/30 min Senna/Docusate Sodium (Senokot S 50 Mg-8.6 Mg) 1 tab PO TID [facility] Last Admin: 11/15/16 10:09 Dose: 1 tab - Labs Labs: 11/15/16 11:17 11/15/16 11:17 PT 11.7 SECONDS (9.7-12.2) 11/15/16 11:17 INR 1.0 11/15/16 11:17 APTT 27 SECONDS (21-34) 11/15/16 11:17 - Constitutional Appears: Well - Head Exam Head Exam: ATRAUMATIC, NORMAL INSPECTION, NORMOCEPHALIC - Eye Exam Eye Exam: EOMI, Normal appearance, PERRL Pupil Exam: NORMAL ACCOMODATION, PERRL - ENT Exam ENT Exam: Mucous Membranes Moist, Normal Exam - Neck Exam Neck Exam: Full ROM, Normal Inspection. absent: Lymphadenopathy - Respiratory Exam Respiratory Exam: Decreased Breath Sounds - Cardiovascular Exam Cardiovascular Exam: REGULAR RHYTHM, +S1 - GI/Abdominal Exam GI & Abdominal Exam: Soft, Diminished Bowel Sounds - Rectal Exam Rectal Exam: Deferred - Neurological Exam Neurological Exam: Alert, Awake Assessment and Plan (1) Altered mental status Status: Acute (2) Parotiditis Status: Acute (3) Respiratory distress Status: Acute (4) Abdominal pain Status: Acute (5) Anemia Status: Acute (6) Constipation Status: Acute (7) Hyperglycemia Status: Acute (8) Hypokalemia Status: Acute (9) Ovarian cystic mass Status: Acute (10) Prophylactic measure Status: Acute (11) UTI (urinary tract infection) Status: Acute - Assessment and Plan (Free Text) Plan: Continue same discussed with the son who is Dr. Albert about the details of the left frontal tumor at length again the family refused once in second opinion Agrees to transfer the patient to [facility] Patient was transferred to the ICU and was started back from ICU to the floor patient is on its way to the [facility] again spoke to son and son-in-law both
--- NOTE | 2016-11-15 14:38 | CP.PCM.PCO ---
Physician Communication Note - Physician Communication Note Physician Communication Note: Family meeting called for tomorrow.
--- NOTE | 2016-11-15 15:29 | CP.PCM.CON ---
History of Present Illness - History of Present Illness History of Present Illness: Palliative consult Requested by Celestina jenkins Reason; Goals of care Patient is a 76 yo female admitted from home with worsened weakness, AMS. decreased appetite X 2 days and unable to walk. patient was ambulatory prior to this, using walker. patient was treated recently at [facility] for lower back and leg pain and was discharged home with pain meds. The CT head on this admission was significant for large left frontal mass ( 6.5 X 4.3) and midline shift. After the Decadron IV, patient's condition has slightly improved in term of alertness. The decompressing Sx was planned for tomorrow. Brain MRI confirmed meningioma potentially malignant. Doctor Tae consulted. PMH: HTN, OA Soc. Hx: , lives at home Fam Hx: not known Review of Systems - Review of Systems All systems: reviewed and no additional remarkable complaints except Review of Systems: Patient is nonverbal with NGT in place. As per nursing no acute overnight event. Past Patient History - Infectious Disease Hx of Infectious Diseases: None - Tetanus Immunizations Tetanus Immunization: Unknown - Past Medical History & Family History Past Medical History?: No - Past Social History Smoking Status: Unknown If Ever Smoked - CARDIAC Hx Hypertension: Yes - PULMONARY Hx Respiratory Disorders: No - NEUROLOGICAL Hx Neurological Disorder: No - HEENT Hx HEENT Problems: No - RENAL Hx Chronic Kidney Disease: No - ENDOCRINE/METABOLIC Hx Endocrine Disorders: No - HEMATOLOGICAL/ONCOLOGICAL Hx Blood Disorders: No - INTEGUMENTARY Hx Dermatological Problems: No - MUSCULOSKELETAL/RHEUMATOLOGICAL Hx Falls: No (Unknown) - GASTROINTESTINAL Hx Gastrointestinal Disorders: No - GENITOURINARY/GYNECOLOGICAL Hx Genitourinary Disorders: No - PSYCHIATRIC Hx Substance Use: No - SURGICAL HISTORY Hx Surgeries: Yes Hx Cataract Extraction: Yes Hx Tubal Ligation: Yes - ANESTHESIA Hx Anesthesia: Yes Hx Anesthesia Reactions: No Hx Malignant Hyperthermia: No Meds Allergies/Adverse Reactions: Allergies Allergy/AdvReac Type Severity Reaction Status Date / Time No Known Allergies Allergy Verified 04/17/14 17:38 - Medications Medications: Current Medications Albuterol/Ipratropium (Duoneb 3 Mg/0.5 Mg (3 Ml) Ud) 3 ml INH RQ6 [facility] Last Admin: 11/15/16 13:36 Dose: 3 ml Dexamethasone (Decadron Inj) 8 mg IV Q8H [facility] Last Admin: 11/15/16 10:09 Dose: 8 mg Enalaprilat (Vasotec) 1.25 mg IV Q6 [facility] Last Admin: 11/15/16 13:28 Dose: 1.25 mg Famotidine (Pepcid) 20 mg IVP DAILY [facility] Last Admin: 11/15/16 10:09 Dose: 20 mg Hydralazine HCl (Apresoline) 10 mg IVP Q6H [facility] Last Admin: 11/15/16 14:04 Dose: 10 mg Ceftriaxone Sodium (Rocephin Iv 1 Gm Duplex) 50 mls @ 50 mls/30 min IVPB Q12H [facility] Last Admin: 11/15/16 05:32 Dose: 50 mls/30 min Senna/Docusate Sodium (Senokot S 50 Mg-8.6 Mg) 1 tab PO TID [facility] Last Admin: 11/15/16 13:26 Dose: 1 tab Physical Exam - Constitutional Appears: No Acute Distress, Chronically Ill - Head Exam Head Exam: ATRAUMATIC, NORMAL INSPECTION, NORMOCEPHALIC - Eye Exam Eye Exam: EOMI, Normal appearance, PERRL Pupil Exam: NORMAL ACCOMODATION, PERRL - ENT Exam Additional comments: NGT in place - Neck Exam Neck exam: Positive for: Normal Inspection - Respiratory Exam Respiratory Exam: NORMAL BREATHING PATTERN - Cardiovascular Exam Cardiovascular Exam: REGULAR RHYTHM - GI/Abdominal Exam GI & Abdominal Exam: Normal Bowel Sounds, Soft - Rectal Exam Rectal Exam: Deferred - Extremities Exam Additional comments: Left sided weakness - Back Exam Back exam: NORMAL INSPECTION - Neurological Exam Neurological exam: Alert, Altered - Psychiatric Exam Psychiatric exam: Flat Affect - Skin Skin Exam: Pallor Results - Vital Signs Recent Vital Signs: Last Vital Signs Temp 98.9 F 11/15/16 14:05 Pulse 98 H 11/15/16 14:27 Resp 22 11/15/16 14:05 BP 146/79 11/15/16 14:27 Pulse Ox 99 11/15/16 14:05 - Labs Result Diagrams: 11/15/16 11:17 11/15/16 11:17 Labs: Laboratory Results - last 24 hr 11/14/16 11/14/16 11/15/16 17:11 21:08 11:17 WBC RBC Hgb Hct MCV MCH MCHC RDW Plt Count MPV PT 11.7 INR 1.0 APTT 27 Sodium Potassium Chloride Carbon Dioxide Anion Gap BUN Creatinine Est GFR ( Amer) Est GFR (Non-Af Amer) POC Glucose (mg/dL) 167 H 166 H Random Glucose Calcium 11/15/16 11/15/16 11/15/16 11:17 11:17 12:03 WBC 8.3 RBC 4.42 Hgb 8.1 L Hct 27.8 L MCV 62.8 L MCH 18.4 L MCHC 29.3 L RDW 22.7 H Plt Count 337 MPV 10.3 PT INR APTT Sodium 147 Potassium 4.0 Chloride 109 H Carbon Dioxide 33 H Anion Gap 9 L BUN 31 H Creatinine 0.7 Est GFR ( Amer) > 60 Est GFR (Non-Af Amer) > 60 POC Glucose (mg/dL) 249 H Random Glucose 260 H Calcium 9.4 Assessment & Plan - Assessment and Plan (Free Text) Assessment: Palliative consult Code status Full Code, there is no advance directive on chart, PPs 10% I reviewed medical records, all diagnostic studies, examined patient in the bed and made phone calls to patient's son and granddaughter. patient is alert, makes eye contacts, non verbal with right hemiparesis. NGT in place for feedings. Breath sounds diminished, no cough noted. Abd soft, hypoactive bowel sounds. Snow at bed side. mild edema to LEs. BP 158/80, HR 88 , O2Sat 100% RA. Hb 8.6 , down from 11.1. All other systems reviewed and are negative except as noted above. I attempted the phone discussion with patient's son who did not answer. Than I called the granddaughter Audelia. She informed me that family was coming late this afternoon, around 6 pm to sign surgical consent for tomorrow's Sx. I asked her for help to get in touch with patient's son for the family meeting. She agreed. Impression * This is chronically ill patient with acute symptoms pending the brain Sx for decompression * patient is aphasic and unable to participate in goals of care discussion * Patient's wishes for end of life care are not known * Per granddaughter, family agreed with Sx and would attend family meeting once scheduled Suggestion * Promote aspiration precautions * promote skin integrity * Oral care I will attempt to reach family again and hope to meet with them tomorrow Since family is so focused on the pending Sx, I do not think any meeting if was held today , would be productive. Thank you for consulting Palliative care
[2016-11-15 15:46] VITALS: RESP 20
[2016-11-15 16:29] VITALS: PULSE 91
[2016-11-15 17:38] VITALS: TEMP 98.1; O2SAT 98
[2016-11-15 18:44] VITALS: BP 152/91
--- NOTE | 2016-11-19 19:57 | EEG ---
DATE: 11/15/2016 INTERPRETATIONS: This is a 16-channel electroencephalogram of awake and lethargic adult. During the study, photic stimulation was performed. Hyperventilation was not performed. The resting electroencephalogram consists of high amplitude, diffuse 5 to 6 Hz theta activities noted in bilateral cortical leads. This followed with a high amplitude delta activities noted. This slow activity is continuously noted from the beginning. The photic stimulation did not evoke driving response noted at 2-20 Hz. IMPRESSION: This is a globally abnormal electroencephalogram because of persistent slowing throughout the record suggestive of bilateral cerebral dysfunction. This is probably secondary to metabolic, vascular, or degenerative process. During the study, neither electroencephalographic paroxysmal activities nor focal slowing noted. Jourdan Mitchell MD
--- NOTE | 2016-11-24 14:31 | CARD ---
APPROVED REPORT EKG Measurement Heart [id number] <Conclusion> Normal sinus rhythm Minimal voltage criteria for LVH, may be normal variant Anterior infarct, age undetermined Abnormal ECG
== END 2016-11-15 19:45 | DRG 871 ==
LOC: C.ER 09:36 → C.9E 12:40 → C.9I 14:00 → C.3T 11-12 00:34 → C.5T 11-12 02:41
PROVIDERS: ADMIT Internal Medicine Nephrology; ATTEND Internal Medicine Nephrology
PROC: 0CJS8ZZ Inspection of Larynx, Via Natural or Artificial Opening Endoscopic (ICD-10-PCS; principal; 2016-11-09)
PROC: 02HV33Z Insertion of Infusion Device into Superior Vena Cava, Percutaneous Approach (ICD-10-PCS; 2016-11-10)
PROC: 5A09457 Assistance with Respiratory Ventilation, 24-96 Consecutive Hours, Continuous Positive Airway Pressure (ICD-10-PCS; 2016-11-12)
PROC: 0D20XUZ Change Feeding Device in Upper Intestinal Tract, External Approach (ICD-10-PCS; 2016-11-14)
DX: A41.9 Sepsis, unspecified organism (principal); G93.5 Compression of brain; G93.6 Cerebral edema; G81.91 Hemiplegia, unspecified affecting right dominant side; R47.01 Aphasia; E83.39 Other disorders of phosphorus metabolism; C70.0 Malignant neoplasm of cerebral meninges; N39.0 Urinary tract infection, site not specified; R65.20 Severe sepsis without septic shock; D64.9 Anemia, unspecified; I10 Essential (primary) hypertension; K11.20 Sialoadenitis, unspecified; M19.90 Unspecified osteoarthritis, unspecified site; K59.00 Constipation, unspecified; E87.6 Hypokalemia; R73.9 Hyperglycemia, unspecified; N83.209 Unspecified ovarian cyst, unspecified side; R53.1 Weakness; J34.2 Deviated nasal septum; R55 Syncope and collapse; R26.89 Other abnormalities of gait and mobility; Z51.5 Encounter for palliative care; Z86.73 Personal history of transient ischemic attack (TIA), and cerebral infarction without residual deficits